=== PATIENT | male | born 1935 | race Caucasian/White ===

== ENCOUNTER 2016-11-21 12:35 | Emergency (ER) | payer MEDICARE, OTHER ==
[~2016-11-21] VITALS: Ht 180.3 cm; Wt 78.0 kg
[~2016-11-21 12:35] MED LIST: AGGR20025 PO; AMBI10TA PO; AMLO10TA2 PO; CYMB60CA PO; NEXI20CA PO; PRED5TAB PO; RAPA8CAP PO; ZETI10TA5 PO
[2016-11-21] MEDS ORDERED: DILTIAZEM HCL 25 MG/5 ML VIAL ONE (12:48)
[2016-11-21] MEDS ORDERED: SODIUM CHLORIDE 0.9% FLUSH 10 ML FLUSH IVF PRN (13:00)
[2016-11-21] MEDS ORDERED: DILTIAZEM HCL 25 MG/5 ML VIAL IV ONE (13:00)
--- NOTE | 2016-11-21 13:01 | PD ---
HPI Chief Complaint: chest pain Time Seen by Provider: 12:51 Travel History International Travel<30 days: No Contact w/Intl Traveler<30days: No History of Present Illness HPI This is an 80-year-old male who presents to the emergency department with 45 minutes of left-sided chest discomfort described as pressure, nonradiating, associated with shortness of breath, moderate severity. He says he's never had chest pain like this before. The patient just yesterday had a temporal artery biopsy and he saw Dr. Torres his ict support engineer prior to this and got a clean checkup. He says he's had a stress test in the past but none in several years. He says he may have been told he has a history of atrial fibrillation but he is not sure. He's had TIAs in the past and he takes Aggrenox. He's never had a heart attack before. 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) Blood Disorders: No Cancer: Yes (bladder) Cardiac Catheterization: Yes Cardiovascular Problems: No High Cholesterol: Yes Chemotherapy: Yes (07/23/16) Chest Pain: No Cerebrovascular Accident: Yes (TIA 2007) Diabetes: No Diminished Hearing: No Endocrine: No Gastrointestinal Disorders: Yes GERD: Yes Glaucoma: No Genitourinary: No Headaches: Yes Hepatitis: No Hiatal Hernia: No Hypertension: No Immune Disorder: Yes Implanted Vascular Access Dvce: Yes Musculoskeletal: Yes Neurologic: Yes Psychiatric: No Reproductive: No Respiratory: Yes Sleep Apnea: Yes Thyroid Disease: No Ulcer: Yes Past Surgical History Abdominal Surgery: No AICD: No Cardiac Surgery: No Ear Surgery: No Endocrine Surgery: No Eye Surgery: Yes (bilat. cataract) Genitourinary Surgery: No Gynecologic Surgery: No Joint Replacement: No Neurologic Surgery: Yes Oral Surgery: No Pacemaker: No Thoracic Surgery: No Other Surgery: Yes (BACK SURGERIES) Social History Alcohol Use: No Tobacco Use: No Substance Use: No Allergies-Medications (Allergen,Severity, Reaction): Coded Allergies: No Known Allergies (Verified , 11/16/10) Reported Meds & Prescriptions Reported Meds & Active Scripts Active Reported Glimepiride 1 Mg Tab 1 Mg PO DAILY Take with breakfast or first main meal Ambien (Zolpidem Tartrate) 10 Mg Tab 10 Mg PO HS PRN Rapaflo (Silodosin) 8 Mg Cap 8 Mg PO DAILY Prednisone 5 Mg Tab 5 Mg PO BID Nexium (Esomeprazole DR) 20 Mg Capdr 20 Mg PO DAILY Zetia (Ezetimibe) 10 Mg Tab 10 Mg PO DAILY Aggrenox (Dipyridamole/Aspirin) 200-25 Mg Cap 1 Cap PO BID Review of Systems Except as stated in HPI: all other systems reviewed are Neg Physical Exam Narrative GENERAL:Well appearing, no acute distress SKIN: Bandage on the left forehead. HEAD: Atraumatic. Normocephalic. EYES: Pupils equal and round. No injection or drainage. ENT: Moist mucous membranes NECK: Trachea midline. CARDIOVASCULAR: Tachycardic, rhythm is irregularly irregular. No murmur appreciated. RESPIRATORY: Clear to auscultation. Breath sounds equal bilaterally. GASTROINTESTINAL: Abdomen soft, non-tender, nondistended. MUSCULOSKELETAL: No obvious deformities. NEUROLOGICAL: Awake and alert. No obvious cranial nerve deficits. Moving all extremities. PSYCHIATRIC: Appropriate mood and affect; insight and judgment normal. Data Data Last Documented VS Vital Signs Date Time Temp Pulse Resp B/P Pulse Ox O2 Delivery O2 Flow Rate FiO2 11/21/16 16:29 60 20 144/67 Nasal Cannula 2 11/21/16 13:32 95 Orders Diltiazem Inj (Cardizem Inj) (11/21/16 12:48) Electrocardiogram (11/21/16 12:51) B-Type Natriuretic Peptide (11/21/16 12:51) Complete Blood Count With Diff (11/21/16 12:51) Comprehensive Metabolic Panel (11/21/16 12:51) Magnesium (Mg) (11/21/16 12:51) Prothrombin Time / Inr (Pt) (11/21/16 12:51) Act Partial Throm Time (Ptt) (11/21/16 12:51) Troponin I (11/21/16 12:51) Chest, Single Ap (11/21/16 12:51) Ecg Monitoring (11/21/16 12:51) Bilateral Bp Monitoring (11/21/16 12:51) Iv Access Insert/Monitor (11/21/16 12:51) Oximetry (11/21/16 12:51) Oxygen Administration (11/21/16 12:51) Sodium Chloride 0.9% Flush (Ns Flush) (11/21/16 13:00) Diltiazem Inj (Cardizem Inj) (11/21/16 13:00) Sodium Chlor 0.9% 1000 Ml Inj (Ns 1000 M (11/21/16 14:45) Diltiazem Cd (Cardizem Cd) (11/21/16 15:00) Troponin I (11/21/16 16:26) Labs Laboratory Tests Test 11/21/16 11/21/16 13:35 16:20 White Blood Count 17.8 TH/MM3 Red Blood Count 4.64 MIL/MM3 Hemoglobin 14.7 GM/DL Hematocrit 44.6 % Mean Corpuscular Volume 96.2 FL Mean Corpuscular Hemoglobin 31.6 PG Mean Corpuscular Hemoglobin 32.9 % Concent Red Cell Distribution Width 14.2 % Platelet Count 169 TH/MM3 Mean Platelet Volume 9.1 FL Neutrophils (%) (Auto) 94.7 % Lymphocytes (%) (Auto) 2.3 % Monocytes (%) (Auto) 2.5 % Eosinophils (%) (Auto) 0.0 % Basophils (%) (Auto) 0.5 % Neutrophils # (Auto) 16.8 TH/MM3 Lymphocytes # (Auto) 0.4 TH/MM3 Monocytes # (Auto) 0.5 TH/MM3 Eosinophils # (Auto) 0.0 TH/MM3 Basophils # (Auto) 0.1 TH/MM3 CBC Comment DIFF FINAL Differential Comment Prothrombin Time 10.4 SEC Prothromb Time International 0.9 RATIO Ratio Activated Partial 24.3 SEC Thromboplast Time Sodium Level 138 MEQ/L Potassium Level 4.6 MEQ/L Chloride Level 105 MEQ/L Carbon Dioxide Level 21.9 MEQ/L Anion Gap 11 MEQ/L Blood Urea Nitrogen 30 MG/DL Creatinine 1.55 MG/DL Estimat Glomerular Filtration 43 ML/MIN Rate Random Glucose 256 MG/DL Calcium Level 8.7 MG/DL Magnesium Level 2.3 MG/DL Total Bilirubin 1.0 MG/DL Aspartate Amino Transf 48 U/L (AST/SGOT) Alanine Aminotransferase 58 U/L (ALT/SGPT) Alkaline Phosphatase 95 U/L Troponin I LESS THAN 0.02 LESS THAN 0.02 NG/ML NG/ML B-Type Natriuretic Peptide 90 PG/ML Total Protein 7.2 GM/DL Albumin 3.6 GM/DL MDM Medical Decision Making Medical Screen Exam Complete: Yes Emergency Medical Condition: Yes Interpretation(s) Tachycardic Leukocytosis with left shift Renal insufficiency slightly worse than prior Troponin is normal 2 BNP is 90 Coags are normal Chest x-rays reassuring. EKG: Atrial fibrillation with rapid ventricular response. Repeat EKG: Normal sinus rhythm with frequent PVCs and intermittent bigeminy Differential Diagnosis Atrial fibrillation, SVT, myocardial infarction, electrolyte abnormality, sepsis Narrative Course This is a 81-year-old male who presents to the emergency department with onset of chest pain that started this afternoon about an hour prior to arrival in the emergency department with some shortness of breath. On arrival he was placed on a monitor and found to be tachycardic with a normal blood pressure. I assessed him immediately when he got in the room. EKG demonstrated atrial fibrillation. The patient was given a 15 mg IV dose of diltiazem and subsequently converted to sinus rhythm. Labs were all reassuring. He does have a leukocytosis which I suspect is in the setting of being on prednisone due to concern for temporal arteritis. He otherwise has no infectious symptoms. Chest x-ray demonstrates no pneumonia. I spoke to Dr. Scottie Torres who is the patient's ict support engineer. The patient has no history of atrial fibrillation. Dr. Torres recommended we initiate diltiazem 240 mg and he will follow-up with the patient early next week in clinic. We discussed the possibility of acute coronary syndrome. We both think it's unlikely given the patient's symptoms immediately resolved following resolution of his rapid heart rate. Troponin was repeated at a 3 hour interval and was reassuring. I think the patient is safe for outpatient evaluation. Patient was advised if he has recurrence of symptoms to return to the emergency department. Diagnosis Primary Impression: Atrial fibrillation Qualified Code: I48.0 - Paroxysmal atrial fibrillation Patient Instructions: General Instructions Additional Instructions: If you develop severe chest pain, shortness of breath, sweating, lightheadedness , dizziness or difficulty breathing return to the emergency department immediately. Make an appointment with Dr. Torres's office for early next week. Med/Other Pt SpecificInfo: Prescription(s) given Scripts Diltiazem ER 24 HR 240 Mg [id number] Mg PO DAILY #30 TAB Ref 0 Prov:Nikki Leigh MD 11/21/16 Disposition: 01 DISCHARGE HOME Condition: Stable Nikki Leigh MD Nov 21, 2016 13:01
[2016-11-21 13:20] VITALS: BP 141/60; PULSE 150; RESP 20; O2SAT 92
[2016-11-21] MEDS ORDERED: GLIM1TAB PO (13:29)
[2016-11-21 13:32] VITALS: BP 129/59; PULSE 58; RESP 20; O2SAT 95
[2016-11-21 13:43] LABS: AUTOMATED NEUTROPHIL # 16.8 TH/MM3 (1.8-7.7); BASOPHIL # 0.1 TH/MM3 (0-0.2); BASOPHIL % 0.5 % (0.0-2.0); HEMATOCRIT 44.6 % (39.0-51.0); HEMO FLAGS DIFF FINAL; LYMPH % 2.3 % (9.0-44.0); LYMPHOCYTE # 0.4 TH/MM3 (1.0-4.8); MEAN CELL VOLUME 96.2 FL (80.0-100.0); MEAN CORPUSCULAR HEMOGLOBIN 31.6 PG (27.0-34.0); MEAN CORPUSCULAR HGB CONC 32.9 % (32.0-36.0); MONO % 2.5 % (0.0-8.0); NEUT % 94.7 % (16.0-70.0); PLATELET COUNT 169 TH/MM3 (150-450); RED BLOOD COUNT 4.64 MIL/MM3 (4.50-5.90); RED CELL DISTRIBUTION WIDTH 14.2 % (11.6-17.2); WHITE BLOOD COUNT 17.8 TH/MM3 (4.0-11.0)
[2016-11-21 13:55] LABS: APTT (PATIENT) 24.3 SEC (24.3-30.1); INTERNATIONAL NORMALIZED RATIO 0.9 RATIO; PROTHROMBIN TIME - PATIENT 10.4 SEC (9.8-11.6)
--- NOTE | 2016-11-21 14:03 | RADRPT ---
EXAM DATE/TIME: 11/21/2016 13:09 [facility] COMPARISON: No previous studies available for comparison. INDICATIONS : Patient has been short of breath and had chest pain since this morning. MEDICAL HISTORY : None. SURGICAL HISTORY : None. ENCOUNTER: Initial ACUITY: 1 day PAIN SCORE: 8/10 LOCATION: Bilateral chest FINDINGS: The heart is normal in size. The mediastinal contours are within normal limits. There are chronic int erstitial changes within the pulmonary parenchyma. The lungs are otherwise clear. CONCLUSION: 1. Chronic interstitial changes. No acute abnormality. Jossue Kennedy MD on November 21, 2016 at 13:59 Board Certified Radiologist. This report was verified electronically.
[2016-11-21 14:14] LABS: ALKALINE PHOSPHATASE 95 U/L (45-117); ALT (GPT) 58 U/L (12-78); ANION GAP 11 MEQ/L (5-15); AST (GOT) 48 U/L (15-37); BICARBONATE 21.9 MEQ/L (21.0-32.0); BLOOD UREA NITROGEN 30 MG/DL (7-18); CHLORIDE 105 MEQ/L (98-107); GLOMERULAR FILTRATION RATE 43 ML/MIN (>89); MAGNESIUM 2.3 MG/DL (1.5-2.5); SODIUM (NA) 138 MEQ/L (136-145)
[2016-11-21 14:16] LABS: POTASSIUM 4.6 MEQ/L (3.5-5.1)
[2016-11-21] MEDS ORDERED: SODIUM CHLOR 0.9% 1000 ML INJ 1,000 ML IV SCH (14:45)
[2016-11-21] MEDS ORDERED: DILTIAZEM-CD 240 MG CAP ER PO ONE (15:00)
[2016-11-21 16:29] VITALS: BP 144/67; PULSE 60; RESP 20
[2016-11-21 17:25] VITALS: TEMP 97.9
[2016-11-21] MEDS ORDERED: DILT1TAB4 PO (17:25)
--- NOTE | 2016-11-23 11:24 | EKG ---
Date Performed: 11/21/2016 Time Performed: 12:44:47 PTAGE: 81 years EKG: ATRIAL FIBRILLATION WITH RAPID VENTRICULAR RESPONSE NONSPECIFIC ST & T-WAVE ABNORMALITY ABN ORMAL ECG INTERPRETATION BASED ON A DEFAULT AGE OF 40 YEARS PREVIOUS TRACING : 11/16/2010 11.47 DOCTOR: George Chacko Interpretating Date/Time 11/23/2016 11:21:01
== END 2016-11-21 18:22 | disposition home or self-care (01) ==
LOC: NEPB 12:35
DX: I48.91 Unspecified atrial fibrillation (principal)
CPT/HCPCS: 71010; 80053; 83735; 83880; 84484; 85025; 85610; 85730; 93005; 96361; 96374; 99284; J7030

== ENCOUNTER 2016-11-27 20:05 | Inpatient (IN) | payer MEDICARE, OTHER ==
[~2016-11-27] VITALS: Ht 180.3 cm; Wt 76.1 kg
[~2016-11-27 20:05] MED LIST changes: -AMLO10TA2 PO; -CYMB60CA PO; +DILT1TAB4 PO; +GLIM1TAB PO
[2016-11-27 20:07] VITALS: BP 184/76; PULSE 62; RESP 16; TEMP 98; O2SAT 98
[2016-11-27 20:21] VITALS: BP 189/75; PULSE 58; RESP 21; O2SAT 100
[2016-11-27] MEDS ORDERED: PRED10 PO (20:36)
[2016-11-27] MEDS ORDERED: NEXI40CA PO (20:36)
[2016-11-27] MEDS ORDERED: SODIUM CHLORIDE 0.9% FLUSH 10 ML FLUSH IVF PRN (20:45)
--- NOTE | 2016-11-27 20:45 | PD ---
HPI Chief Complaint: Cardiac Complaint Time Seen by Provider: 20:23 Travel History International Travel<30 days: No Contact w/Intl Traveler<30days: No Traveled to known affect area: No History of Present Illness HPI 81-year-old male arrives to the ER at the behest of Dr. Torres. The patient states he has "heart fibrillation." He also states he has been short of breath and dizzy. Shortness of breath was first noticed about 5 days ago or so. It's worse with exertion and over the past day or so he is short of breath at rest. He has no chest pain in the ER and has had none recently. The patient was seen here about a week ago after arriving to the ER in atrial fibrillation with RVR. He received diltiazem and the heart rate normalized and he was sent home on oral diltiazem after a EP spoke with Dr Torres, pt's examining chair assembler. Since then he was placed on a Holter monitor by Dr. Torres which showed arrhythmia and prompted ER evaluation. Patient notes he has some sinus trouble lately, not rhinorrhea, not coughing rather "stuffed up." Finally the patient states he has had cephalgia for years and a biopsy was performed last week and the results are pending, evidently an investigation for giant cell arteritis. 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) Blood Disorders: No Cancer: Yes (bladder) Cardiac Catheterization: Yes Cardiovascular Problems: Yes (atrial fib) High Cholesterol: Yes Chemotherapy: Yes (07/23/16) Chest Pain: No Cerebrovascular Accident: Yes (TIA 2007) Diminished Hearing: No Endocrine: No Gastrointestinal Disorders: Yes GERD: Yes Glaucoma: No Genitourinary: No Headaches: Yes Hepatitis: No Hiatal Hernia: No Hypertension: No Immune Disorder: Yes Implanted Vascular Access Dvce: Yes Medical other: Yes (HX OF TIAS X2, HYPERCHOLESTER.) Musculoskeletal: Yes Neurologic: Yes Psychiatric: No Reproductive: No Respiratory: Yes (cpap) Sleep Apnea: Yes Thyroid Disease: No Ulcer: Yes Past Surgical History Abdominal Surgery: No AICD: No Cardiac Surgery: No Ear Surgery: No Endocrine Surgery: No Eye Surgery: Yes (bilat. cataract) Genitourinary Surgery: No Gynecologic Surgery: No Joint Replacement: No Neurologic Surgery: Yes (BILAT. TEMPORAL ARTERY SURGERY 3/22 @) Oral Surgery: No Pacemaker: No Thoracic Surgery: No Other Surgery: Yes (BACK SURGERIES) Social History Alcohol Use: Yes (rarely) Tobacco Use: No Substance Use: No Allergies-Medications (Allergen,Severity, Reaction): Coded Allergies: Morphine (Verified Allergy, Unknown, Hallucinations, 11/27/16) Reported Meds & Prescriptions Reported Meds & Active Scripts Active Diltiazem ER 24 HR 240 Mg Clark 240 Mg PO DAILY Reported Nexium (Esomeprazole DR) 40 Mg Capdr 40 Mg PO DAILY Prednisone 10 Mg Tab 30 Mg PO DAILY Glimepiride 1 Mg Tab 1 Mg PO DAILY Take with breakfast or first main meal Ambien (Zolpidem Tartrate) 10 Mg Tab 10 Mg PO HS PRN Rapaflo (Silodosin) 8 Mg Cap 8 Mg PO DAILY Zetia (Ezetimibe) 10 Mg Tab 10 Mg PO DAILY Aggrenox (Dipyridamole/Aspirin) 200-25 Mg Cap 1 Cap PO BID Review of Systems Except as stated in HPI: all other systems reviewed are Neg General / Constitutional: No: Fever Cardiovascular: Positive: Dyspnea on exertion, No: Chest Pain or Discomfort, Syncope Physical Exam Narrative GENERAL: 81 M, WNWD, pleasant, speaking full sentences SKIN: Warm and dry. HEAD: Atraumatic. Normocephalic. EYES: Pupils equal and round. No scleral icterus. No injection or drainage. ENT: No nasal bleeding or discharge. Mucous membranes pink and moist. NECK: Trachea midline. No JVD. CARDIOVASCULAR: Rhythm is regular. 2+ radial artery pulses. RESPIRATORY: No accessory muscle use. Clear to auscultation. Breath sounds equal bilaterally. GASTROINTESTINAL: Abdomen soft, non-tender, nondistended. Hepatic and splenic margins not palpable. MUSCULOSKELETAL: Extremities without clubbing, cyanosis, or edema. No obvious deformities. NEUROLOGICAL: Awake and alert. No obvious cranial nerve deficits. Motor grossly within normal limits. Five out of 5 muscle strength in the arms and legs. Normal speech. PSYCHIATRIC: Appropriate mood and affect; insight and judgment normal. Data Data Last Documented VS Vital Signs Date Time Temp Pulse Resp B/P Pulse Ox O2 Delivery O2 Flow Rate FiO2 11/27/16 22:20 54 24 162/73 97 Room Air 11/27/16 20:07 98.0 VS reviewed Orders Electrocardiogram (11/27/16 20:37) Basic Metabolic Panel (Bmp) (11/27/16 20:37) Ckmb (Isoenzyme) Profile (11/27/16 20:37) Complete Blood Count With Diff (11/27/16 20:37) Magnesium (Mg) (11/27/16 20:37) Prothrombin Time / Inr (Pt) (11/27/16 20:37) Act Partial Throm Time (Ptt) (11/27/16 20:37) Troponin I (11/27/16 20:37) Ecg Monitoring (11/27/16 20:37) Iv Access Insert/Monitor (11/27/16 20:37) Oximetry (11/27/16 20:37) Oxygen Administration (11/27/16 20:37) Sodium Chloride 0.9% Flush (Ns Flush) (11/27/16 20:45) B-Type Natriuretic Peptide (11/27/16 20:37) Chest, Single Ap (11/27/16 ) Heparin Infusion ADDI.Q1H (11/27/16 20:49) Heparin Inj (Heparin Inj) (11/28/16 03:00) Heparin Inj (Heparin Inj) (11/28/16 03:00) Heparin-D5w Inj (Heparin-D5w Inj) (11/27/16 21:00) Cbc No Diff, Includes Plts (11/30/16 06:00) Act Partial Throm Time (Ptt) (11/28/16 03:49) Occult Blood (Hemoccult) Stool (11/27/16 20:49) Consult Cardiology (11/27/16 ) CKMB (11/27/16 20:40) CKMB% (11/27/16 20:40) (Hub Use Only)Inp Phy Cons/Ref (11/27/16 ) Lorazepam Inj (Ativan Inj) (11/27/16 22:00) Admit Order (Ed Use Only) (11/27/16 22:45) Labs Laboratory Tests Test 11/27/16 20:40 White Blood Count 15.5 TH/MM3 Red Blood Count 4.47 MIL/MM3 Hemoglobin 14.3 GM/DL Hematocrit 42.7 % Mean Corpuscular Volume 95.4 FL Mean Corpuscular Hemoglobin 31.9 PG Mean Corpuscular Hemoglobin 33.4 % Concent Red Cell Distribution Width 13.9 % Platelet Count 173 TH/MM3 Mean Platelet Volume 9.9 FL Neutrophils (%) (Auto) 90.8 % Lymphocytes (%) (Auto) 4.5 % Monocytes (%) (Auto) 4.5 % Eosinophils (%) (Auto) 0.1 % Basophils (%) (Auto) 0.1 % Neutrophils # (Auto) 14.0 TH/MM3 Lymphocytes # (Auto) 0.7 TH/MM3 Monocytes # (Auto) 0.7 TH/MM3 Eosinophils # (Auto) 0.0 TH/MM3 Basophils # (Auto) 0.0 TH/MM3 CBC Comment AUTO DIFF Differential Total Cells 100 Counted Neutrophils % (Manual) 84 % Band Neutrophils % 5 % Lymphocytes % 5 % Monocytes % 5 % Neutrophils # (Manual) 14.0 TH/MM3 Myelocytes 1 % Differential Comment FINAL DIFF MANUAL Platelet Estimate NORMAL Platelet Morphology Comment NORMAL Red Cell Morphology Comment NORMAL Prothrombin Time 10.0 SEC Prothromb Time International 0.9 RATIO Ratio Activated Partial 22.9 SEC Thromboplast Time Sodium Level 136 MEQ/L Potassium Level 5.4 MEQ/L Chloride Level 104 MEQ/L Carbon Dioxide Level 22.1 MEQ/L Anion Gap 10 MEQ/L Blood Urea Nitrogen 31 MG/DL Creatinine 1.52 MG/DL Estimat Glomerular Filtration 44 ML/MIN Rate Random Glucose 347 MG/DL Calcium Level 9.1 MG/DL Magnesium Level 2.2 MG/DL Total Creatine Kinase 136 U/L Creatine Kinase MB 3.2 NG/ML Troponin I LESS THAN 0.02 NG/ML B-Type Natriuretic Peptide 50 PG/ML MDM Medical Decision Making Medical Screen Exam Complete: Yes Emergency Medical Condition: Yes Medical Record Reviewed: Yes Differential Diagnosis NSTEMI, unstable angina, coronary vasospasm, PE, PTX, aortic dissection, pericarditis, myocarditis, endocarditis, PNA, esophageal disease, aneurysm, musculoskeletal etiologies, anxiety, cocaine/sympathomimetic abuse Narrative Course This case was discussed with Dr. Torres who reports the Holter monitor report revealed episodes of A. fib with RVR which were unnoticed by the patient. One episode was followed by a 6 second pause. In this scenario the patient is to be admitted for ablation to be performed by Dr. Chacko with a diagnosis of tachycardia-bradycardia syndrome. IV Heparin gtt started. Case d/w Derek Plasencia for [facility], admission to Dr Hernandez. CBC & BMP Diagram 11/27/16 20:40 Note is made of the leukocytosis with band neutrophils in the blood which is considered nonspecific at this time. BNP 50 INR 0.9 Last 24 hours Impressions Chest X-Ray 11/27/16 0000 Signed Impressions: Service Date/Time: Sunday, November 27, 2016 20:49 - CONCLUSION: 1. No acute cardiopulmonary disease. 2. No significant change compared to the previous examination. 3. Degenerative changes throughout the thoracic spine. Nilo Neely MD EKG reveals a sinus rhythm with a rate of about 61 PVC noted Diagnosis Primary Impression: Tachy-gary syndrome Admitting Information Admitting Physician Requests: Admit Jossue Alberto MD Nov 27, 2016 20:45
[2016-11-27 20:53] VITALS: BP 153/68; PULSE 53; RESP 21; O2SAT 96
[2016-11-27 21:04] LABS: BASOPHIL % 0.1 % (0.0-2.0); EOSINOPHIL % 0.1 % (0.0-4.0); HEMATOCRIT 42.7 % (39.0-51.0); LYMPH % 4.5 % (9.0-44.0); LYMPHOCYTE # 0.7 TH/MM3 (1.0-4.8); MEAN CELL VOLUME 95.4 FL (80.0-100.0); MEAN CORPUSCULAR HEMOGLOBIN 31.9 PG (27.0-34.0); MEAN CORPUSCULAR HGB CONC 33.4 % (32.0-36.0); MONO % 4.5 % (0.0-8.0); NEUT % 90.8 % (16.0-70.0); PLATELET COUNT 173 TH/MM3 (150-450); RED BLOOD COUNT 4.47 MIL/MM3 (4.50-5.90); RED CELL DISTRIBUTION WIDTH 13.9 % (11.6-17.2); WHITE BLOOD COUNT 15.5 TH/MM3 (4.0-11.0)
[2016-11-27 21:12] LABS: APTT (PATIENT) 22.9 SEC (24.3-30.1); INTERNATIONAL NORMALIZED RATIO 0.9 RATIO
[2016-11-27 21:15] LABS: HEMO FLAGS AUTO DIFF
[2016-11-27 21:29] LABS: ANION GAP 10 MEQ/L (5-15); BICARBONATE 22.1 MEQ/L (21.0-32.0); BLOOD UREA NITROGEN 31 MG/DL (7-18); CHLORIDE 104 MEQ/L (98-107); CREATINE KINASE 136 U/L (39-308); GLOMERULAR FILTRATION RATE 44 ML/MIN (>89); MAGNESIUM 2.2 MG/DL (1.5-2.5); POTASSIUM 5.4 MEQ/L (3.5-5.1); SODIUM (NA) 136 MEQ/L (136-145)
--- NOTE | 2016-11-27 21:37 | RADRPT ---
EXAM DATE/TIME: 11/27/2016 20:49 [facility] COMPARISON: CHEST SINGLE AP, November 21, 2016, 13:09. INDICATIONS : Chest pain and shortness of breath. MEDICAL HISTORY : Chronic obstructive pulmonary disease. SURGICAL HISTORY : None. ENCOUNTER: Subsequent ACUITY: 2 days PAIN SCORE: 8/10 LOCATION: Chest FINDINGS: There is no significant change compared to 11/21/2016. There is no acute focal pulmonary infiltrate o r pulmonary vascular congestion. The heart and mediastinal structures are stable. CONCLUSION: 1. No acute cardiopulmonary disease. 2. No significant change compared to the previous examination. 3. Degenerative changes throughout the thoracic spine. Nilo Neely MD on November 27, 2016 at 21:32 Board Certified Radiologist. This report was verified electronically.
[2016-11-27 21:42] LABS: CKMB 3.2 NG/ML (0.5-3.6)
[2016-11-27] MEDS: HEPARIN-D5W INJ 250 ML IV SCH (21:57)
[2016-11-27] MEDS ORDERED: LORazepam 2 MG/ML VIAL IV PUSH ONE (22:00)
[2016-11-27 22:05] LABS: BANDS 5 % (0-6); MYELOCYTES 1 % (0-0); POLYS (SEG NEUTROPHILS) 84 % (16-70); WBC DIFF SAMPLE 100
[2016-11-27 22:06] LABS: PLATELET ESTIMATE SMEAR NORMAL (NORMAL); PLATELET MORPHOLOGY NORMAL (NORMAL); SCAN/DIFF FINAL DIFF MANUAL
[2016-11-27 22:20] VITALS: BP 162/73; PULSE 54; RESP 24; O2SAT 97
[2016-11-27] MEDS ORDERED: DEXTROSE 50% IN WATER 50 ML VIAL(D50) IV PUSH PRN (23:30)
[2016-11-27] MEDS ORDERED: GLUCAGON 1 MG/ML VIAL OTHER PRN (23:30)
[2016-11-27] MEDS ORDERED: ACETAMINOPHEN 325 MG TAB PO PRN (23:30)
[2016-11-27] MEDS ORDERED: NALOXONE HCL 0.4 MG/ML AMP IV PRN (23:30)
[2016-11-27] MEDS ORDERED: SODIUM CHLORIDE 0.9% FLUSH 10 ML FLUSH IV FLUSH PRN (23:30)
[2016-11-27] MEDS ORDERED: SENNOSIDES 8.6 MG TAB PO PRN (23:30)
[2016-11-27] MEDS ORDERED: ONDANSETRON HCL 4 MG/2 ML VIAL IVP PRN (23:30)
[2016-11-27] MEDS ORDERED: BISACODYL 10 MG SUPP RECTAL PRN (23:30)
[2016-11-28] VITALS (18 sets, daily range): BP systolic 116–186; BP diastolic 53–99; PULSE 52–166; RESP 12–18; TEMP 97.8–98.1; O2SAT 94–98
[2016-11-28] MEDS: SODIUM CHLOR 0.9% 1000 ML INJ 1,000 ML IV SCH ×3 (00:34→20:19)
[2016-11-28] MEDS ORDERED: ZOLPIDEM TARTRATE 10 MG TAB PO PRN ×2 (01:00)
[2016-11-28] MEDS ORDERED: HEPARIN SODIUM - IV 10,000 UNITS/10 ML VIAL IV PRN ×2 (03:00)
[2016-11-28 03:07] LABS: AUTOMATED NEUTROPHIL # 11.4 TH/MM3 (1.8-7.7); BASOPHIL # 0.2 TH/MM3 (0-0.2); BASOPHIL % 1.3 % (0.0-2.0); EOSINOPHIL # 0.1 TH/MM3 (0-0.4); EOSINOPHIL % 0.9 % (0.0-4.0); HEMO FLAGS DIFF FINAL; LYMPH % 11.7 % (9.0-44.0); LYMPHOCYTE # 1.7 TH/MM3 (1.0-4.8); MEAN CELL VOLUME 95.6 FL (80.0-100.0); MEAN CORPUSCULAR HGB CONC 32.4 % (32.0-36.0); MONO % 6.2 % (0.0-8.0); NEUT % 79.9 % (16.0-70.0); PLATELET COUNT 142 TH/MM3 (150-450); RED BLOOD COUNT 4.19 MIL/MM3 (4.50-5.90); WHITE BLOOD COUNT 14.2 TH/MM3 (4.0-11.0)
[2016-11-28 03:15] LABS: APTT (PATIENT) 43.6 SEC (24.3-30.1)
[2016-11-28 03:40] LABS: BICARBONATE 24.8 MEQ/L (21.0-32.0); POTASSIUM 3.9 MEQ/L (3.5-5.1)
[2016-11-28] MEDS: INSULIN ASPART SUPPLEMENTAL SCALE SQ SCH ×4 (07:14→20:19)
[2016-11-28] MEDS: SODIUM CHLORIDE 0.9% FLUSH 10 ML FLUSH IV FLUSH SCH ×2 (07:14→20:19)
[2016-11-28] MEDS ORDERED: FAMOTIDINE 20 MG TAB PO ONE (10:00)
--- NOTE | 2016-11-28 10:37 | MH ---
cc: FRANCINE HERNANDEZ MD DATE OF ADMISSION: 11/27/2016 DATE OF : 1935 CHIEF COMPLAINT Irregular heart rhythm and shortness of breath. Travel in the last 30 days: None. 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 The patient states that Dr. Torres has been following him for atrial fibrillation and irregular heart rhythm. The patient does note symptoms of shortness of breath and dizziness off and on when he was at home and before going to see Dr. Torres and his PCP. Approximately a week ago the patient was at a green party and dancing with his when he noted an extreme sensation of dizziness. The patient was noted to have a Holter monitor on during that time. The patient was notified per Dr. Torres that his heart was having extreme pauses which was causing his symptoms of dizziness. He was then requested to come into the emergency room for further evaluation. According to the record, the patient has had cephalgia for years and had a biopsy done this past week with results pending. According to the record the patient is being evaluated for giant cell arteritis. The patient also has been recently treated for cancer and was just released from his medical treatment regime. The patient does have a significant history of TIAs with some right-sided weakness and right eye drooping. He is also a diabetic and on oral hypoglycemics. PAST MEDICAL HISTORY 1. Polymyalgia. 2. Arthritis with autoimmune disease. 3. Recent bladder cancer. 4. Recent atrial fibrillation. 5. Hyperlipidemia. 6. Diabetes with oral hypoglycemics. 7. TIAs. 8. Ogwp-fi-gibdbnw. 9. GERD. 10. Headaches. 11. Obstructive sleep apnea, the patient uses CPAP at night. 12. History of ulcers. PAST SURGICAL HISTORY 1. Bilateral cataracts. 2. Welding accident approximately 50 years ago which caused the right eye to droop from an injury. 3. Multiple back surgeries. ALLERGIES MORPHINE. MEDICATIONS Reported medications include: 1. Nexium. 2. Prednisone. 3. Glimepiride. 4. Ambien. 5. Rapaflo. 6. Zetia. 7. Aggrenox. SOCIAL HISTORY The patient is , currently lives with his . He is retired. No tobacco, rare alcohol once a year usage, no illicit drugs. FAMILY HISTORY Heart disease and cancer. REVIEW OF SYSTEMS A 12-point review was obtained, positives noted are shortness of breath at rest and with exertion, hard of hearing, irregular heart rhythm, mild dizziness, arthritis, chest pain x1 back several week ago when heart rate and rhythm was irregular, headaches. Other systems negative or unremarkable. PHYSICAL EXAMINATION VITAL SIGNS: Temperature 98, pulse 58, respirations 18, blood pressure labile between 153/68 and 186/86. 02 sat 97, currently on room air. Used CPAP machine during the hours of sleep. GENERAL: Well-nourished white male, looks younger than his stated age, resting in the bed, alert and oriented and a fairly good historian. HEENT: Atraumatic, normocephalic. Right eye droop, chronic. PERRLA. Tongue is midline. Mucous membranes are pink. NECK: Supple. CARDIOVASCULAR: S1, S2, probable soft systolic murmur at the left sternal border. No edema. Pulses are intact. RESPIRATORY: Essentially clear anteriorly and posteriorly with no wheezes, rales or rhonchi. GI: Abdomen is round, soft, nontender, nondistended. Active bowel sounds. MUSCULOSKELETAL: Moves his extremities with purpose. No edema. NEUROLOGIC: He is alert, oriented, awake, able to answer simple questions. Speech is clear and normal. PSYCHIATRIC: Appropriate mood and affect. Insight and judgment is normal. DIAGNOSTIC DATA WBC count 14.2, RBCs 4.19, hemoglobin 13, hematocrit 40, platelet count was 173 on admission, now 142. Neutrophil auto count 79.9. PT/INR 0.9. Chemistry sodium 140, potassium 3.9, chloride 107, carbon dioxide 24.8, amnion gap 8, BUN 27, creatinine 0.12, GFR 63, random glucose 204. Troponin x 2 is less than 0.02. BNP is 50. IMAGING STUDIES Shows the chest x-ray to be no acute cardiopulmonary disease, degenerative changes of the thoracic spine noted. ASSESSMENT AND PLAN 1. Syncope, dizziness without loss of consciousness. 2. Recent history of atrial fibrillation, irregular rhythm, labile between a slow ventricular response and a tachyarrhythmia. 3. Dyspnea. 4. COPD/obstructive sleep apnea. 5. Degenerative disc disease. 6. Diabetes mellitus type II, takes oral hypoglycemics. 7. Hyperglycemia. 8. History of right-sided weakness with TIAs. 9. History of recent bladder cancer. 10. Leukocytosis. 11. Acute kidney injury with dehydration. 12. Hard of hearing. 13.History of dysuria and frequency. Our plan is to admit to inpatient status. Will monitor his vital signs q. 4 and keep him on bedrest for now. ECG monitoring with gentle hydration. Medications have been reconciled. Will monitor his Accu-Cheks a.c. and h.s. per sliding scale. Consult cardiology for his expert opinion. Currently the patient is in a sinus bradycardic rhythm in the 50s. He denies any shortness of breath or pain. We will follow. Further testing per cardiology. Pain management as warranted. DVT prophylaxis with heparin drip. Bowel regime. Will give him Pepcid p.o. for PUD prophylaxis. Continue with telemetry monitoring. The patient is full code, full aggressive care and we will continue to follow his needs. Dictated by: Snehal Sanz, Nurse Practitioner Francine Hernandez MD JP/TLL /9:07 AM /9:46 AM PT SEEN AND EXAMINED IN DETAIL ABOVE FACE TO FACE TIME SPENT WIWTH PT CHART WAS REVIWED RERE RN RERE MOOREP ABOUT PLAN OF CARE RERE PT SEE ORDERS MTDD
[2016-11-28] MEDS: predniSONE 10 MG TAB PO SCH (11:01)
[2016-11-28] MEDS: PANTOPRAZOLE SOD 40 MG DELAYED RELEASE TAB PO SCH (11:02)
[2016-11-28] MEDS: EZETIMIBE 10 MG TAB PO SCH (11:02)
[2016-11-28] MEDS: DIPYRIDAMOLE/ASPIRIN 200 MG/25 MG CAP PO SCH ×2 (11:22→20:20)
[2016-11-28] MEDS: DILTIAZEM HCL 25 MG/5 ML VIAL ONE ×2 (14:13→14:18)
[2016-11-28] MEDS ORDERED: DILTIAZEM HCL 25 MG/5 ML VIAL IV ONE (14:30)
[2016-11-28] MEDS ORDERED: NITROGLYCERIN 2% OINT 1 GM PACKET TOPICAL ONE (14:30)
--- NOTE | 2016-11-28 14:59 | EKG ---
Date Performed: 11/27/2016 Time Performed: 20:27:07 PTAGE: 81 years EKG: SINUS BRADYCARDIA WITH OCCASIONAL SUPRAVENTRICULAR PREMATURE COMPLEXES When compared to pre vious tracing, sinus Bradycardia has Replaced atrial fibrillation. BORDERLINE ECG PREVIOUS TRACING : 11/21/2016 12.44.47 DOCTOR: Dimitri Carbajal Interpretating Date/Time 11/28/2016 14:58:41
[2016-11-28] MEDS: HEPARIN-D5W INJ 250 ML IV SCH (16:33)
[2016-11-28] MEDS: ZOLPIDEM TARTRATE 10 MG TAB PO PRN (20:23)
[2016-11-29] VITALS (23 sets, daily range): BP systolic 119–171; BP diastolic 50–88; PULSE 46–146; RESP 12–18; TEMP 97.4–98.2; O2SAT 95–98
[2016-11-29] MEDS: SODIUM CHLOR 0.9% 1000 ML INJ 1,000 ML IV SCH (05:32)
[2016-11-29] MEDS: INSULIN ASPART SUPPLEMENTAL SCALE SQ SCH ×4 (06:50→21:08)
[2016-11-29 06:54] LABS: MEAN CELL VOLUME 95.4 FL (80.0-100.0); MEAN CORPUSCULAR HEMOGLOBIN 32.3 PG (27.0-34.0); MEAN CORPUSCULAR HGB CONC 33.8 % (32.0-36.0); PLATELET COUNT 139 TH/MM3 (150-450); RED BLOOD COUNT 3.98 MIL/MM3 (4.50-5.90); REVIEW FLAG FINAL; WHITE BLOOD COUNT 10.6 TH/MM3 (4.0-11.0)
[2016-11-29 07:45] LABS: BICARBONATE 26.2 MEQ/L (21.0-32.0); POTASSIUM 4.9 MEQ/L (3.5-5.1)
[2016-11-29] MEDS: PANTOPRAZOLE SOD 40 MG DELAYED RELEASE TAB PO SCH (08:17)
[2016-11-29] MEDS: EZETIMIBE 10 MG TAB PO SCH (08:18)
[2016-11-29] MEDS: DIPYRIDAMOLE/ASPIRIN 200 MG/25 MG CAP PO SCH (08:18)
[2016-11-29] MEDS: predniSONE 10 MG TAB PO SCH (08:18)
[2016-11-29] MEDS: SODIUM CHLORIDE 0.9% FLUSH 10 ML FLUSH IV FLUSH SCH ×2 (08:19→21:08)
[2016-11-29] MEDS ORDERED: SODIUM CHLORID 0.9% 500 ML INJ 500 ML IV SCH ×2 (08:30→09:00)
[2016-11-29 08:36] LABS: APTT (PATIENT) 94.5 SEC (24.3-30.1)
[2016-11-29] MEDS ORDERED: SILODOSIN 8 MG PO SCH (09:00)
--- NOTE | 2016-11-29 10:18 | MB ---
cc: JADE FAUSTIN D.O., HANSCY M.D. PANJA, JAWED KHANNA, ROHIT K. M.D. HIGHET, BRIDGET H. MD DATE OF CONSULTATION 11/28/2016 REASON FOR CONSULTATION Tachy-gary syndrome, atrial fibrillation. I was called by Dr. Torres about Mr. Chatman. He has an 81-year-old gentleman who was having tachy-gary syndrome, rapid episode of tachyarrhythmia followed by pause up to 6-second. The gentleman was very symptomatic. He was having shortness of breath and dizziness. He was sent to the emergency room where he was admitted. The chart was reviewed. The patient was evaluated. ALLERGIES MORPHINE SOCIAL HISTORY The patient is negative for smoking and drinking. FAMILY HISTORY Noncontributory to his current medical condition. MEDICATIONS At home, this gentleman was on: 1. Nexium 2. Prednisone 3. Glimepiride 4. Ambien 5. Zetia 6. Aggrenox REVIEW OF SYSTEMS He refers palpitation, dizziness and near syncope. No chest pain. PHYSICAL EXAM Alert, fully oriented. VITAL SIGNS: His blood pressure on evaluation 167/81, pulse 60, respiratory 18 LUNGS: Ventilated. CARDIOVASCULAR: S1-S2, regular. No gallop. ABDOMEN: Soft. No mass. No bruit. EXTREMITIES: No edema. Electrocardiogram on the monitor shows sinus rhythm with PVCs. A previous electrocardiogram shows supraventricular tachyarrhythmia possible atrial fibrillation. LABORATORY DATA Hemoglobin is 12.9, white blood cell 10.6, potassium of 4.9, creatinine 1.23. Troponin less than 0.02. ASSESSMENT AND RECOMMENDATIONS Mr. Chatman currently is stable. He is having an episode of tachy-gary syndrome. He has atrial fibrillation followed by a recovery six seconds pause. It looks like this is pulmonary vein tachyarrhythmia and atrial fibrillation. Electrophysiology study and ablation discussed with him. The risks, the nature and the benefit of the procedure are clearly stated to him. The risks include pneumothorax, cardiac perforation, stroke and even . He understood and agreed to proceed. Procedure will be performed during hospitalization. MD ELENA Fine/CLARK /8:29 AM /10:09 AM
[2016-11-29] MEDS ORDERED: PROPOFOL 200 MG/20 ML AMP OTHER ONE (12:01)
[2016-11-29] MEDS ORDERED: HEPARIN-NS/PF INJ 500 ML ONE (12:24)
[2016-11-29] MEDS ORDERED: LEVOFLOXACIN 500 MG PREMIX INJ 100 ML IV ONE (12:24)
--- NOTE | 2016-11-29 12:35 | HHI.PR ---
Subjective Remarks Offering no complaint Lying on a bed without any apparent distress Review of system for 12 point system otherwise unremarkable Objective Objective Results - Vital Signs Date Time Temp Pulse Resp B/P Pulse Ox O2 Delivery O2 Flow Rate FiO2 11/29/16 08:15 97.6 93 18 130/76 96 11/29/16 06:00 46 11/29/16 05:00 48 11/29/16 04:00 46 11/29/16 03:00 48 11/29/16 03:00 97.4 47 12 119/50 98 11/29/16 02:00 46 11/29/16 01:00 50 11/29/16 00:00 54 11/28/16 23:00 54 11/28/16 23:00 98.1 56 12 116/53 95 11/28/16 22:00 52 11/28/16 21:00 56 11/28/16 20:00 54 11/28/16 19:50 98.1 58 18 125/56 95 11/28/16 19:00 58 11/28/16 18:01 59 11/28/16 17:01 58 11/28/16 16:00 56 11/28/16 15:01 97.9 129 18 120/91 94 11/28/16 15:00 166 11/28/16 14:45 124 18 158/83 98 11/28/16 13:35 156 18 170/94 97 Room Air I/O 11/28/16 11/28/16 11/28/16 11/29/16 11/29/16 11/29/16 07:00 15:00 23:00 07:00 15:00 23:00 Intake Total 813 ml 1700 ml Output Total 1900 ml 100 ml 750 ml Balance -1900 ml 713 ml 950 ml Intake Oral 240 ml 480 ml IV Total 573 ml 1220 ml Output Urine Total 1900 ml 100 ml 750 ml # Voids 3 2 # Bowel Movements 1 1 0 Result Diagram: 11/29/16 0600 11/29/16 0600 Other Results Laboratory Tests Test 11/28/16 11/29/16 11/29/16 13:47 06:00 07:28 Troponin I LESS THAN 0.02 White Blood Count 10.6 Red Blood Count 3.98 Hemoglobin 12.9 Hematocrit 38.0 Mean Corpuscular Volume 95.4 Mean Corpuscular Hemoglobin 32.3 Mean Corpuscular Hemoglobin 33.8 Concent Red Cell Distribution Width 14.0 Platelet Count 139 Mean Platelet Volume 9.0 Sodium Level 140 Potassium Level 4.9 Chloride Level 107 Carbon Dioxide Level 26.2 Anion Gap 7 Blood Urea Nitrogen 26 Creatinine 1.23 Estimat Glomerular Filtration 56 Rate Random Glucose 119 Calcium Level 8.2 Activated Partial 94.5 Thromboplast Time Date/Time Procedure Status Source Growth 11/28/16 15:44 Stool Occult Blood ([facility]) - Final Complete Stool Stool HEMOCCULT NEGATIVE Physical Exam Physical Exam GENERAL: Well-nourished white male, looks younger than his stated age, resting in the bed, alert and oriented and a fairly good historian. HEENT: Atraumatic, normocephalic. Right eye droop, chronic. PERRLA. Tongue is midline. Mucous membranes are pink. NECK: Supple. CARDIOVASCULAR: S1, S2, probable soft systolic murmur at the left sternal border. No edema. Pulses are intact. RESPIRATORY: Essentially clear anteriorly and posteriorly with no wheezes, rales or rhonchi. GI: Abdomen is round, soft, nontender, nondistended. Active bowel sounds. MUSCULOSKELETAL: Moves his extremities with purpose. No edema. NEUROLOGIC: He is alert, oriented, awake, able to answer simple questions. Speech is clear and normal. PSYCHIATRIC: Appropriate mood and affect. Insight and judgment is normal. A/P Assessment and Plan 1. Syncope, dizziness without loss of consciousness. 2. Recent history of atrial fibrillation, irregular rhythm, labile between a slow ventricular response and a tachyarrhythmia. Tachybradycardia syndrome 3. Dyspnea. 4. COPD/obstructive sleep apnea. 5. Degenerative disc disease. 6. Diabetes mellitus type II, takes oral hypoglycemics. 7. Hyperglycemia. 8. History of right-sided weakness with TIAs. 9. History of recent bladder cancer. 10. Leukocytosis. 11. Acute kidney injury with dehydration. 12. Hard of hearing. 13.History of dysuria and frequency. Labs reviewed. Decrease. Will monitor gentle hydration. Accu-Cheks a.c. and h.s. per sliding scale. Appreciate consultation by cardiology. Awaiting EP cardiology input. As per RN for EP studies today Pain management as warranted. Pepcid p.o. for PUD prophylaxis. Continue with telemetry monitoring. Medications reviewed Discussed with RN Discussed with patient Clarita Hernandez MD Nov 29, 2016 12:35
[2016-11-29] MEDS ORDERED: HEPARIN SODIUM - IV 10,000 UNITS/10 ML VIAL ONE (14:11)
[2016-11-29] MEDS ORDERED: HEPARIN-D5W INJ 250 ML ONE (14:11)
[2016-11-29] MEDS ORDERED: ISOPROTERENOL HCL 1 MG/5 ML AMP ONE (14:44)
[2016-11-29] MEDS ORDERED: PROTAMINE SULFATE 50 MG/5 ML VIAL ONE (15:22)
[2016-11-29] MEDS ORDERED: DO NOT ADM ANY ANTICOAGULANT DRUGS PRN (15:55)
[2016-11-29] MEDS ORDERED: *HYDROmorphone PF 1 MG VIAL PERIprocedural Use ONLY ONE ×2 (15:57→16:14)
[2016-11-29] MEDS ORDERED: LIDOCAINE HCL 1% 50 ML VIAL INFIL PRN (16:00)
[2016-11-29] MEDS ORDERED: ATROPINE SULFATE 1 MG/ML VIAL IV PRN (16:00)
[2016-11-29] MEDS ORDERED: oxyCODONE/ACETAMINOPHEN 5 MG/325 MG TAB PO PRN ×2 (16:00)
[2016-11-29] MEDS ORDERED: ONDANSETRON HCL 4 MG/2 ML VIAL IV PRN (16:00)
[2016-11-29] MEDS ORDERED: LORazepam 2 MG/ML VIAL IV PRN (16:00)
[2016-11-29] MEDS ORDERED: SODIUM CHLOR 0.9% 250 ML INJ 250 ML IV PRN (16:00)
[2016-11-29] MEDS ORDERED: METOCLOPRAMIDE HCL 10 MG/2 ML VIAL IV PRN (16:00)
[2016-11-29] MEDS ORDERED: BACITRACIN OINT 0.9 GM PKT TOP ONE (16:00)
[2016-11-29] MEDS ORDERED: FUROSEMIDE 20 MG/2 ML VIAL ONE (16:04)
--- NOTE | 2016-11-29 16:06 | PD.CARD ---
Atrial Fibrillation Cryo Study PROCEDURE DATE: Nov 29, 2016 PROCEDURE PERFORMED Electrophysiology study, CS cannulation, 3-D mapping, transeptal approach, right and left heart catheterization, cryoablation of atrial fibrillation, pulmonary vein isolation, posterior ablation, anterior ablation, repeat electrophysiology study on Isuprel infusion, intracardiac echo. Very complex case. INDICATIONS FOR PROCEDURE Mr. Chatman is a 81-year-old male with atrial fibrillation, symptomatic, multiple pauses referred for electrophysiology study and ablation. The risks, the nature and the benefit of the procedure are clearly stated to him. The risks include pneumothorax, cardiac perforation, stroke, need for open heart surgery and even . The patient understood and agreed to proceed. PROCEDURE As written informed consent was obtained prior to esophageal echo, the patient was kept on the table where he was prepped and draped in the usual sterile fashion. Conscious sedation was initiated and throughout the procedure by the anesthesiologist. Once sedation was verified, the right and left inguinal area was anesthetized with 2% Xylocaine. Using modified Seldinger technique, the left femoral vein was cannulated on three occasions and three guidewires were advanced over the wire, one 6, one 7, and one 10-Tristanian Hemaquet were advanced. Then the left femoral artery was done on one occasion, one guidewire was advanced over the wire. A 4-Tristanian Hemaquet was advanced. Then the right femoral vein was cannulated on one occasion and one guidewire was advanced over the wire. An 8-Tristanian Hemaquet was advanced. Then under fluoroscopic guidance through the 6 and 7-Tristanian Hemaquet, two 5- Tristanian Chrissy curved quadripolar electrophysiology catheters were advanced and positioned on the His as well as coronary sinus. The patient was in sinus rhythm. Basic interval was measured. They were all within normal limits. Then through the 10-Tristanian Hemaquet, a 29[place] AcuNav intracardiac echo catheter was advanced and placed at the right atrium. Multiple views were obtained. There was no pericardial effusion. Pulmonary vein was seen. The atrial septum was visualized. Then the 8-Tristanian Hemaquet in the right femoral vein was exchanged for an Agilis transseptal sheath that was placed all the way to the superior vena cava. Through this sheath a [place] needle was advanced. Then the sheath, the dilator and the needle were pulled back progressively until foci engaged. Once the needle was advanced, RF was delivered for 2 seconds. I was able to cross into the left atrium. Once the needle was crossed, the dilator was advanced. Once the dilator was crossed, the sheath was advanced. Once the sheath crossed , the dilator and needle were removed. An intracardiac echo showed the sheath in good position. The patient already received 10,000 units of heparin. The goal is to get an ACT around 360 during the ablation. I decided to proceed with cryoablation. Through the sheath a 0.035 wire was advanced. I did exchange the Agilis sheath for a InnoCC flex sheath. I decided to use a 28mm balloon to cover the posterior and anterior wall for ablation. The balloon was advanced over the IBTgames circumferential catheter. Using Rezzcard maping system, a 3 D mapping of the left atrium was obtained. The veins were very active. First I did engage the left superior vein. The balloon was inflated, complete occlusion obtained. CryoEnergy was delivered for 3 and 3 minutes. Temperature reached -52. Then I did engage the left inferior vein, occlusion obtained. Venography showed complete occlusion and CryoEnergy was delivered for 3 and 3 minutes. Temperature was around -48 to -50. Then the right inferior was engaged, complete occlusion obtained. Temperature reach -48 for 3 and 3 minutes. Then the right superior was engaged. Before CryoEnergy of the right veins, the His catheter was placed at the left and the right subclavian. Phrenic nerve pacing was performed. There was diaphragmatic stimulation. That is going to be used for phrenic nerve monitoring during cryoablation. I did cryoablate the right superior vein. There was no loss of phrenic nerve movement , diaphragmatic movement. Phrenic nerve was intact. The temperature dropped to -54 for 3 and 3 minutes. At that point I removed the balloon. The circumferential catheter was advanced into the veins. There was no signal into the veins. Pacing from the vein showed no conduction to the atrium. Pacing from the atrium showed no conduction to the veins. The patient at this point received Isuprel infusion for around 15 minutes at 20mcg. No tachyarrhythmia was induced, no conduction resumed. Post-Isuprel no conduction resumed either. At that point the procedure was complete. All catheters were removed, the transeptal sheath was exchanged for a 12-Tristanian Hemaquet. Intracardiac echo showed pericardial effusion, still good flow in the pulmonary vein. No incident reported. The patient tolerated the procedure. Blood loss minimal. 1. Electrocardiogram: At baseline the patient was in sinus. Postprocedure the patient in sinus. 2. Basic Interval: Base cycle length was around 980 milliseconds. 3. Tachyarrhythmia: Atrial fibrillation was mapped and ablated. Ablation was successful. CONCLUSION Successful electrophysiology study, mapping and cryo ablation of atrial fibrillation, pulmonary vein isolation, posterior and anterior wall ablation, repeat electrophysiology study on Isuprel infusion. COMMENT AND RECOMMENDATIONS The patient is going to be transferred to the telemetry unit, will be observed, and when stable can be discharged home. George Chacko MD Nov 29, 2016 16:06
[2016-11-29] MEDS ORDERED: FUROSEMIDE 40 MG/4 ML VIAL IV PUSH ONE (16:30)
--- NOTE | 2016-11-29 17:25 | EKG ---
Date Performed: 11/28/2016 Time Performed: 13:33:52 PTAGE: 81 years EKG: ATRIAL FIBRILLATION WITH RAPID VENTRICULAR RESPONSE NONSPECIFIC ST & T-WAVE ABNORMALITY Com pared to PREVIOUS TRACING , there is now evidence of atrial fibrillation with rapid ventricular re sponse with ischemic changes anterolaterally. ABNORMAL RHYTHM ECG INTERPRETATION BASED ON A DEFAULT A GE OF 40 YEARS PREVIOUS TRACIN11/27/2016 20.27 DOCTOR: Arnoldo Navarrete Interpretating Date/Time 11/29/2016 17:23:20
[2016-11-29] MEDS ORDERED: amLODIPine BESYLATE 5 MG TAB PO ONE (18:30)
[2016-11-29] MEDS: APIXABAN 5 MG TABLET PO SCH (21:07)
[2016-11-29] MEDS: ZOLPIDEM TARTRATE 10 MG TAB PO PRN (21:07)
[2016-11-30] VITALS (14 sets, daily range): BP systolic 147–175; BP diastolic 70–88; PULSE 56–74; RESP 16–18; TEMP 98–98.2; O2SAT 95–99
[2016-11-30] MEDS: SODIUM CHLOR 0.9% 1000 ML INJ 1,000 ML IV SCH (01:26)
[2016-11-30 05:14] LABS: APTT (PATIENT) 23.1 SEC (24.3-30.1); PROTHROMBIN TIME - PATIENT 10.6 SEC (9.8-11.6)
[2016-11-30] MEDS: INSULIN ASPART SUPPLEMENTAL SCALE SQ SCH (05:48)
[2016-11-30] MEDS: PANTOPRAZOLE SOD 40 MG DELAYED RELEASE TAB PO SCH (09:00)
[2016-11-30] MEDS: SODIUM CHLORIDE 0.9% FLUSH 10 ML FLUSH IV FLUSH SCH (09:00)
[2016-11-30] MEDS: APIXABAN 5 MG TABLET PO SCH (09:32)
[2016-11-30] MEDS: predniSONE 10 MG TAB PO SCH (09:32)
[2016-11-30] MEDS: EZETIMIBE 10 MG TAB PO SCH (09:32)
--- NOTE | 2016-11-30 10:52 | HHI.PR ---
Subjective Remarks Offering no complaint Lying on a bed without any apparent distress Review of system for 12 point system otherwise unremarkable Objective Objective Results - Vital Signs Date Time Temp Pulse Resp B/P Pulse Ox O2 Delivery O2 Flow Rate FiO2 11/30/16 08:22 98.2 69 18 175/83 95 158/70 11/30/16 06:24 56 11/30/16 05:00 64 11/30/16 04:00 62 11/30/16 03:00 56 11/30/16 03:00 98.2 58 16 147/71 96 11/30/16 02:14 57 11/30/16 01:18 56 11/30/16 00:28 70 11/30/16 00:26 98.0 58 16 150/88 99 11/29/16 23:00 58 11/29/16 22:00 60 11/29/16 21:00 62 11/29/16 20:00 62 11/29/16 19:00 97.9 64 18 148/75 97 11/29/16 19:00 63 11/29/16 18:01 62 11/29/16 17:33 97.6 60 16 171/81 98 11/29/16 17:00 97.3 57 12 165/84 98 Nasal Cannula 2 11/29/16 17:00 59 11/29/16 16:45 56 10 164/82 98 11/29/16 16:30 56 8 165/81 97 11/29/16 16:15 55 8 168/81 97 11/29/16 16:00 57 10 170/93 98 Nasal Cannula 3 11/29/16 15:52 97.3 56 10 172/85 98 Nasal Cannula 3 11/29/16 12:00 54 11/29/16 11:30 98.2 64 18 161/88 95 11/29/16 11:00 58 I/O 11/29/16 11/29/16 11/29/16 11/30/16 11/30/16 11/30/16 07:00 15:00 23:00 07:00 15:00 23:00 Intake Total 1700 ml 500 ml 580 ml Output Total 750 ml 1850 ml 1425 ml Balance 950 ml -1350 ml -845 ml Intake Oral 480 ml 580 ml IV Total 1220 ml 500 ml Output Urine Total 750 ml 1850 ml 1425 ml # Bowel Movements 0 0 1 Result Diagram: 11/29/16 0600 11/29/16 0600 Other Results Laboratory Tests Test 11/30/16 04:15 Prothrombin Time 10.6 Prothromb Time International 1.0 Ratio Activated Partial 23.1 Thromboplast Time Date/Time Procedure Status Source Growth 11/28/16 15:44 Stool Occult Blood ([facility]) - Final Complete Stool Stool HEMOCCULT NEGATIVE Physical Exam Physical Exam GENERAL: Well-nourished white male, looks younger than his stated age, resting in the bed, alert and oriented and a fairly good historian. HEENT: Atraumatic, normocephalic. Right eye droop, chronic. PERRLA. Tongue is midline. Mucous membranes are pink. NECK: Supple. CARDIOVASCULAR: S1, S2, probable soft systolic murmur at the left sternal border. No edema. Pulses are intact. RESPIRATORY: Essentially clear anteriorly and posteriorly with no wheezes, rales or rhonchi. GI: Abdomen is round, soft, nontender, nondistended. Active bowel sounds. MUSCULOSKELETAL: Moves his extremities with purpose. No edema. NEUROLOGIC: He is alert, oriented, awake, able to answer simple questions. Speech is clear and normal. PSYCHIATRIC: Appropriate mood and affect. Insight and judgment is normal. A/P Assessment and Plan 1. Syncope, dizziness without loss of consciousness. 2. Recent history of atrial fibrillation, irregular rhythm, labile between a slow ventricular response and a tachyarrhythmia. Tachybradycardia syndrome 3. Dyspnea. 4. COPD/obstructive sleep apnea. 5. Degenerative disc disease. 6. Diabetes mellitus type II, takes oral hypoglycemics. 7. Hyperglycemia. 8. History of right-sided weakness with TIAs. 9. History of recent bladder cancer. 10. Leukocytosis. 11. Acute kidney injury with dehydration. 12. Hard of hearing. 13.History of dysuria and frequency. Labs reviewed. s/p Successful electrophysiology study, mapping and cryo ablation of atrial fibrillation, pulmonary vein isolation, posterior and anterior wall ablation, repeat electrophysiology study on Isuprel infusion. [facility] input gentle hydration. Accu-Cheks a.c. and h.s. per sliding scale. Appreciate consultation by cardiology. Pain management as warranted. Pepcid p.o. for PUD prophylaxis. on telemetry monitoring. Medications reviewed Discussed with RN Discussed with patient dc home today to follow pcp and cardiology Clarita Hernandez MD Nov 30, 2016 10:52
[2016-11-30] MEDS ORDERED: APIX5TAB PO (10:54)
--- NOTE | 2016-11-30 10:59 | HHI.DS ---
Discharge Summary Admission Date Nov 27, 2016 at 22:47 Admitting Diagnosis Tachy-Reynaldo Syndrome (1) Atrial fibrillation Diagnosis: Principal (2) Tachy-reynaldo syndrome Diagnosis: Principal (3) DM (diabetes mellitus) Diagnosis: Principal (4) HTN (hypertension) Diagnosis: Principal Brief History pt was admitted bc of pause on telemetry monitoring. Patient was seen and followed by drum attendant. EP cardiology consultation was done. EP study was done. Patient followed to have atrial fibrillation with tachybradycardia syndrome. Ablations was done successfully. Post ablation patient is doing better. Started on blood tear. As patient is overall stable if it is okay with cardiology will be discharging home to be followed by primary care doctor and EP cardiology as outpatient. In the meantime patient was monitored for his blood sugar and blood pressure. CBC/BMP: 11/29/16 0600 11/29/16 0600 Significant Findings Laboratory Tests Test 11/27/16 11/28/16 11/28/16 11/28/16 20:40 02:56 08:25 09:30 White Blood Count 15.5 TH/MM3 14.2 TH/MM3 (4.0-11.0) (4.0-11.0) Red Blood Count 4.47 MIL/MM3 4.19 MIL/MM3 (4.50-5.90) (4.50-5.90) Neutrophils (%) (Auto) 90.8 % 79.9 % (16.0-70.0) (16.0-70.0) Lymphocytes (%) (Auto) 4.5 % (9.0-44.0) Neutrophils # (Auto) 14.0 TH/MM3 11.4 TH/MM3 (1.8-7.7) (1.8-7.7) Lymphocytes # (Auto) 0.7 TH/MM3 (1.0-4.8) Neutrophils % (Manual) 84 % (16-70) Lymphocytes % 5 % (9-44) Neutrophils # (Manual) 14.0 TH/MM3 (1.8-7.7) Myelocytes 1 % (0-0) Activated Partial 22.9 SEC 43.6 SEC 51.0 SEC Thromboplast Time (24.3-30.1) (24.3-30.1) (24.3-30.1) Potassium Level 5.4 MEQ/L (3.5-5.1) Blood Urea Nitrogen 31 MG/DL (7-18) 27 MG/DL (7-18) Creatinine 1.52 MG/DL (0.60-1.30) Estimat Glomerular Filtration 44 ML/MIN (>89) 63 ML/MIN (>89) Rate Random Glucose 347 MG/DL 204 MG/DL (74-106) (74-106) Troponin I LESS THAN 0.02 LESS THAN 0.02 LESS THAN 0.02 NG/ML NG/ML NG/ML (0.02-0.05) (0.02-0.05) (0.02-0.05) Platelet Count 142 TH/MM3 (150-450) Test 11/28/16 11/29/16 11/29/16 11/30/16 13:47 06:00 07:28 04:15 Troponin I LESS THAN 0.02 NG/ML (0.02-0.05) Red Blood Count 3.98 MIL/MM3 (4.50-5.90) Hemoglobin 12.9 GM/DL (13.0-17.0) Hematocrit 38.0 % (39.0-51.0) Platelet Count 139 TH/MM3 (150-450) Blood Urea Nitrogen 26 MG/DL (7-18) Estimat Glomerular Filtration 56 ML/MIN (>89) Rate Random Glucose 119 MG/DL (74-106) Calcium Level 8.2 MG/DL (8.5-10.1) Activated Partial 94.5 SEC 23.1 SEC Thromboplast Time (24.3-30.1) (24.3-30.1) Pt Condition on Discharge: Good Discharge Instructions DIET: Follow Instructions for: Heart Healthy Diet, Diabetic Diet Activities you can perform: Weight Bearing as Moris Follow up Referrals: Cardiology - 1 Week with George Chacko MD PCP Follow-up - 1 Week New Medications: Apixaban (Eliquis) 5 Mg Tab 5 MG PO BID blood thining #60 TAB Continued Medications: Esomeprazole DR (Nexium) 40 Mg Capdr 40 MG PO DAILY Ref 0 CAP Ezetimibe (Zetia) 10 Mg Tab 10 MG PO DAILY #30 Ref 0 TAB Glimepiride (Glimepiride) 1 Mg Tab 1 MG PO DAILY Take with breakfast or first main meal Blood Sugar Management Ref 0 TAB Prednisone (Prednisone) 10 Mg Tab 30 MG PO DAILY Ref 0 TAB Silodosin (Rapaflo) 8 Mg Cap 8 MG PO DAILY Manage Prostate Problems #30 Ref 0 CAP Zolpidem (Ambien) 10 Mg Tab 10 MG PO HS PRN INSOMNIA Ref 0 TAB Discontinued Medications: Diltiazem ER 24 HR (Diltiazem ER 24 HR) 240 Mg Clark 240 MG PO DAILY #30 Ref 0 TAB Dipyridamole-Aspirin (Aggrenox) 200-25 Mg Cap 1 CAP PO BID Prevent Blood Clot #60 Ref 0 CAP Clarita Hernandez MD Nov 30, 2016 10:59
--- NOTE | 2016-11-30 11:12 | HHI.PR ---
Subjective Remarks feeling well Objective Vital Signs Date Time Temp Pulse Resp B/P Pulse Ox O2 Delivery O2 Flow Rate FiO2 11/30/16 08:22 98.2 69 18 175/83 95 158/70 11/30/16 06:24 56 11/30/16 05:00 64 11/30/16 04:00 62 11/30/16 03:00 56 11/30/16 03:00 98.2 58 16 147/71 96 11/30/16 02:14 57 11/30/16 01:18 56 11/30/16 00:28 70 11/30/16 00:26 98.0 58 16 150/88 99 11/29/16 23:00 58 11/29/16 22:00 60 11/29/16 21:00 62 11/29/16 20:00 62 11/29/16 19:00 97.9 64 18 148/75 97 11/29/16 19:00 63 11/29/16 18:01 62 11/29/16 17:33 97.6 60 16 171/81 98 11/29/16 17:00 97.3 57 12 165/84 98 Nasal Cannula 2 11/29/16 17:00 59 11/29/16 16:45 56 10 164/82 98 11/29/16 16:30 56 8 165/81 97 11/29/16 16:15 55 8 168/81 97 11/29/16 16:00 57 10 170/93 98 Nasal Cannula 3 11/29/16 15:52 97.3 56 10 172/85 98 Nasal Cannula 3 11/29/16 12:00 54 11/29/16 11:30 98.2 64 18 161/88 95 I/O 11/29/16 11/29/16 11/29/16 11/30/16 11/30/16 11/30/16 07:00 15:00 23:00 07:00 15:00 23:00 Intake Total 1700 ml 500 ml 580 ml Output Total 750 ml 1850 ml 1425 ml Balance 950 ml -1350 ml -845 ml Intake Oral 480 ml 580 ml IV Total 1220 ml 500 ml Output Urine Total 750 ml 1850 ml 1425 ml # Bowel Movements 0 0 1 Result Diagram: 11/29/16 0600 11/29/16 0600 Imaging Alert, fully oriented Lungs: ventilated Heart: S1, S2 regular, no gallop Abdomen: soft, no mass Ext: no edema Last Impressions Chest X-Ray 11/27/16 0000 Signed Impressions: Service Date/Time: Sunday, November 27, 2016 20:49 - CONCLUSION: 1. No acute cardiopulmonary disease. 2. No significant change compared to the previous examination. 3. Degenerative changes throughout the thoracic spine. Nilo Neely MD Current Medications Medications (Trade) Dose Ordered Sig/Dorota Route Start Time Stop Time Status Last Admin (NS 1000 ml Inj) 1,000 ml @ 100 mls/hr Q10H IV 11/27/16 23:26 11/29/16 05:32 (NS Flush) 2 ml UNSCH PRN IV FLUSH 11/27/16 23:30 (NS Flush) 2 ml BID IV FLUSH 11/28/16 09:00 11/30/16 09:00 (Tylenol) 650 mg Q4H PRN PO 11/27/16 23:30 11/30/16 09:36 (Zofran Inj) 4 mg Q6H PRN IVP 11/27/16 23:30 (Dulcolax Supp) 10 mg DAILY PRN RECTAL 11/27/16 23:30 (Senokot) 17.2 mg Q12H PRN PO 11/27/16 23:30 (Narcan Inj) 0.4 mg UNSCH PRN IV 11/27/16 23:30 (D50w (Vial) Inj) 25 ml UNSCH PRN IV PUSH 11/27/16 23:30 (Glucagon Inj) 1 mg UNSCH PRN OTHER 11/27/16 23:30 (Zetia) 10 mg DAILY PO 11/28/16 09:45 11/30/16 09:32 (Deltasone) 30 mg DAILY PO 11/28/16 09:45 11/30/16 09:32 (Ambien) 10 mg HS PRN PO 11/28/16 21:00 11/29/16 21:07 (Protonix) 40 mg DAILY PO 11/28/16 09:45 11/30/16 09:00 Patient Own Medication 8 ea 8 ea DAILY PO 11/29/16 09:00 Hold Sodium Chloride 500 ml @ 30 mls/hr CONTINUOUS IV 11/29/16 08:30 (NS 500 ml Inj) 500 ml @ 30 mls/hr CONTINUOUS IV 11/29/16 09:00 (Percocet 5-325 Mg) 1 tab Q4H PRN PO 11/29/16 16:00 (Percocet 5-325 Mg) 2 tab Q4H PRN PO 11/29/16 16:00 (Ativan Inj) 0.5 mg UNSCH PRN IV 11/29/16 16:00 11/30/16 15:59 Atropine Sulfate 0.5 mg 0.5 mg UNSCH PRN IV 11/29/16 16:00 (NS 250 ml Inj) 250 ml @ 500 mls/hr ONCE PRN IV 11/29/16 16:00 11/30/16 15:59 (Reglan Inj) 10 mg Q4H PRN IV 11/29/16 16:00 (Zofran Inj) 4 mg Q4H PRN IV 11/29/16 16:00 (Xylocaine 1% Inj (50 ml)) 10 ml UNSCH PRN INFIL 11/29/16 16:00 11/30/16 15:59 (Eliquis) 5 mg BID PO 11/29/16 21:00 11/30/16 09:32 Miscellaneous Information ALL NURSING DEPARTME... UNSCH PRN .XX 11/29/16 15:55 11/30/16 15:54 Assessment and Plan Problem List: (1) HTN (hypertension) Status: Acute Plan: SBP 147 BP need to better control (2) Tachy-gary syndrome Status: Acute Plan: HR control. SP ablation (3) Atrial fibrillation Status: Acute Plan: SP afib ablation. In sinsu rhythm No tachy episode. No significant PACs can be DH Follow up with me in 3 weeks Eliquis 5 mg bid Case discussed with George Herrera MD Nov 30, 2016 11:12
--- NOTE | 2016-12-01 21:33 | EKG ---
Date Performed: 11/29/2016 Time Performed: 16:06:32 PTAGE: 81 years EKG: SINUS BRADYCARDIA WITH SHORT VA INTERVAL WITH OCCASIONAL SUPRAVENTRICULAR PREMATURE COMPLEX ES BORDERLINE ECG PREVIOUS TRACING : 11/28/2016 13.33 DOCTOR: George Chacko Interpretating Date/Time 12/01/2016 21:29:35
--- NOTE | 2016-12-03 11:10 | ETE ---
Study Study Date:11/29/2016 STUDY CONCLUSIONS SUMMARY - Left ventricle: The cavity size was normal. Wall thickness was normal. Systolic function was normal. The estimated ejection fraction was in the range of 60% to 65%. Wall motion was normal; there were no regional wall motion abnormalities. - Aortic valve: No evidence of vegetation. - Mitral valve: No evidence of vegetation. Mild regurgitation. - Left atrium: No evidence of thrombus in the atrial cavity or appendage. No evidence of thrombus in the atrial cavity or appendage. - Right atrium: No evidence of thrombus in the atrial cavity or appendage. - Atrial septum: No defect or patent foramen ovale was identified. Echo contrast study showed no [id number] atrial level shunt, at baseline or with provocation. - Tricuspid valve: No evidence of vegetation. - Pulmonic valve: No evidence of vegetation. If LV function is below 40, please consider prescribing an ACEI or ARB or document rationale for non-use. PROCEDURE DATA Consent: The risks, benefits, and alternatives to the procedure were explained to the patient and informed consent was obtained. Procedure: Initial setup. The patient was brought to the laboratory in the fasting state. Intravenous access was obtained. Surface ECG leads and pulse oximetric signals were monitored. Sedation. Conscious sedation was administered by anesthesiology. Transesophageal echocardiography. Topical anesthesia was obtained using viscous lidocaine. A transesophageal probe was inserted by the attending stenographic court reporter. Image quality was good. Study completion: All IVs inserted during the procedure were removed. The patient tolerated the procedure well. There were no complications. Transesophageal echocardiography. 2D, complete spectral Doppler, and color Doppler. CARDIAC ANATOMY LEFT VENTRICLE: The cavity size was normal. Wall thickness was normal. Systolic function was normal. The estimated ejection fraction was in the range of 60% to 65%. Wall motion was normal; there were no regional wall motion abnormalities. AORTIC VALVE: Structurally normal valve. Trileaflet; normal thickness leaflets. Cusp separation was normal. No evidence of vegetation. Doppler: No significant regurgitation. Aorta: - There was no atheroma. There was no evidence for dissection. Aortic root: The aortic root was not dilated. Ascending aorta: The ascending aorta was normal in size. Aortic arch: The aortic arch was normal in size. Descending aorta: The descending aorta was normal in size. MITRAL VALVE: Structurally normal valve. Leaflet separation was normal. No evidence of vegetation. Doppler: Mild regurgitation. LEFT ATRIUM: The atrium was normal in size. No evidence of thrombus in the atrial cavity or appendage. No evidence of thrombus in the atrial cavity or appendage. The appendage was morphologically a left appendage, multilobulated, and of normal size. Emptying velocity was normal. ATRIAL SEPTUM: No defect or patent foramen ovale was identified. Echo contrast study showed no [id number] atrial level shunt, at baseline or with provocation. RIGHT VENTRICLE: The cavity size was normal. Wall thickness was normal. Systolic function was normal. PULMONIC VALVE: Structurally normal valve. No evidence of vegetation. TRICUSPID VALVE: Structurally normal valve. Leaflet separation was normal. No evidence of vegetation. Doppler: Trace regurgitation. PULMONARY ARTERY: The main pulmonary artery was normal-sized. RIGHT ATRIUM: The atrium was normal in size. No evidence of thrombus in the atrial cavity or appendage. The appendage was morphologically a right appendage. PERICARDIUM: There was no pericardial effusion. Prepared and signed by George Chacko [id number]
== END 2016-11-30 12:02 | disposition home or self-care (01) | DRG 274 ==
LOC: NEPC 20:05 → NEDA 22:47 → OBSVTOIN 22:47 → NEDH 11-28 04:16 → HCIN 11-28 14:43
PROVIDERS: ADMIT Specialist; ATTEND Specialist
PROC: 02583ZZ Destruction of Conduction Mechanism, Percutaneous Approach (ICD-10-PCS; principal; 2016-11-29)
PROC: 02K83ZZ Map Conduction Mechanism, Percutaneous Approach (ICD-10-PCS; 2016-11-29)
PROC: 4A0234Z Measurement of Cardiac Electrical Activity, Percutaneous Approach (ICD-10-PCS; 2016-11-29)
DX: I48.91 Unspecified atrial fibrillation (principal); N17.9 Acute kidney failure, unspecified; E11.65 Type 2 diabetes mellitus with hyperglycemia; I49.5 Sick sinus syndrome; E86.0 Dehydration; J44.9 Chronic obstructive pulmonary disease, unspecified; D72.829 Elevated white blood cell count, unspecified; E78.5 Hyperlipidemia, unspecified; G47.33 Obstructive sleep apnea (adult) (pediatric); I10 Essential (primary) hypertension; K21.9 Gastro-esophageal reflux disease without esophagitis; M35.3 Polymyalgia rheumatica; Z79.01 Long term (current) use of anticoagulants; Z85.51 Personal history of malignant neoplasm of bladder; Z86.73 Personal history of transient ischemic attack (TIA), and cerebral infarction without residual deficits
CPT/HCPCS: 71010; 80048; 82272; 82550; 82552; 82948; 83735; 83880; 84484; 85002; 85007; 85025; 85027; 85610; 85730; 93005; 93312; 93320; 93325; 93613; 93623; 93656; 93662; 96365; C1730; C1731; C1732; C1733; C1759; C1766; J1170; J1644; J1815; J1940; J1956; J2720; J3010; J7030; J7512

== ENCOUNTER 2016-12-19 11:36 | Inpatient (IN) | payer MEDICARE, OTHER ==
[2016-12-19] VITALS (16 sets, daily range): BP systolic 104–147; BP diastolic 63–97; PULSE 82–170; RESP 16–24; TEMP 97.9–98.6; O2SAT 96–100
[~2016-12-19] VITALS: Ht 180.3 cm; Wt 71.7 kg
[~2016-12-19 11:36] MED LIST changes: -AGGR20025 PO; +APIX5TAB PO; -DILT1TAB4 PO; -NEXI20CA PO; +NEXI40CA PO; +PRED10 PO; -PRED5TAB PO
[2016-12-19] MEDS ORDERED: ADENOSINE IV SOLN 3 MG/ML 2 ML VIAL ONE (11:45)
[2016-12-19] MEDS ORDERED: DILTIAZEM HCL 25 MG/5 ML VIAL ONE (11:53)
[2016-12-19] MEDS ORDERED: ADENOSINE IV SOLN 3 MG/ML 2 ML VIAL IV PUSH ONE ×2 (12:15)
[2016-12-19] MEDS ORDERED: DILTIAZEM HCL 25 MG/5 ML VIAL IV ONE ×2 (12:15)
[2016-12-19] MEDS: DILTIAZEM INJ 125 MG in SODIUM CHLORIDE 0.9% INJ 100 ML IV SCH ×2 (12:30→21:16)
[2016-12-19] MEDS ORDERED: SODIUM CHLORIDE 0.9% FLUSH 10 ML FLUSH IVF PRN (13:00)
[2016-12-19 13:10] LABS: AUTOMATED NEUTROPHIL # 7.1 TH/MM3 (1.8-7.7); BASOPHIL % 0.4 % (0.0-2.0); EOSINOPHIL % 0.3 % (0.0-4.0); HEMATOCRIT 46.1 % (39.0-51.0); LYMPH % 6.9 % (9.0-44.0); LYMPHOCYTE # 0.6 TH/MM3 (1.0-4.8); MEAN CELL VOLUME 95.1 FL (80.0-100.0); MEAN CORPUSCULAR HEMOGLOBIN 31.9 PG (27.0-34.0); MEAN CORPUSCULAR HGB CONC 33.5 % (32.0-36.0); MONO % 5.7 % (0.0-8.0); NEUT % 86.7 % (16.0-70.0); PLATELET COUNT 144 TH/MM3 (150-450); RED BLOOD COUNT 4.85 MIL/MM3 (4.50-5.90); WHITE BLOOD COUNT 8.2 TH/MM3 (4.0-11.0)
[2016-12-19 13:12] LABS: HEMO FLAGS AUTO DIFF
[2016-12-19 13:23] LABS: APTT (PATIENT) 24.8 SEC (24.3-30.1); PROTHROMBIN TIME - PATIENT 10.5 SEC (9.8-11.6)
--- NOTE | 2016-12-19 13:32 | RADRPT ---
EXAM DATE/TIME: 12/19/2016 13:17 [facility] COMPARISON: CHEST SINGLE AP, November 27, 2016, 20:49. INDICATIONS : Short of breath, cough MEDICAL HISTORY : Chronic obstructive pulmonary disease. atrial fibrillation, 2 tia"s SURGICAL HISTORY : None ENCOUNTER: Initial ACUITY: 1 day PAIN SCORE: 0/10 LOCATION: Bilateral chest FINDINGS: Minimal left basilar atelectasis is noted. The lungs are otherwise clear. No pulmonary edema is noted . The heart is normal. Degenerative changes and mild scoliosis of the thoracic spine are noted. CONCLUSION: Minimal left basilar atelectasis. Degenerative changes and mild scoliosis of the thoracic spine. Nilo Neely MD on December 19, 2016 at 13:29 Board Certified Radiologist. This report was verified electronically.
[2016-12-19 13:33] LABS: BLOOD UREA NITROGEN 23 MG/DL (7-18); CHLORIDE 106 MEQ/L (98-107); GLOMERULAR FILTRATION RATE 48 ML/MIN (>89); MAGNESIUM 2.3 MG/DL (1.5-2.5); SODIUM (NA) 138 MEQ/L (136-145)
[2016-12-19 13:34] LABS: ANION GAP 9 MEQ/L (5-15); CREATINE KINASE 203 U/L (39-308)
[2016-12-19 13:36] LABS: BANDS 16 % (0-6); METAMYELOCYTES 1 % (0-1); MYELOCYTES 2 % (0-0); POLYS (SEG NEUTROPHILS) 66 % (16-70); WBC DIFF SAMPLE 100
[2016-12-19 13:37] LABS: PLATELET ESTIMATE SMEAR LOW (NORMAL); PLATELET MORPHOLOGY NORMAL (NORMAL); POTASSIUM 5.1 MEQ/L (3.5-5.1); SCAN/DIFF FINAL DIFF MANUAL
--- NOTE | 2016-12-19 14:07 | PD ---
HPI Chief Complaint: Cardiac Complaint Time Seen by Provider: 12:07 Travel History International Travel<30 days: No Contact w/Intl Traveler<30days: No Traveled to known affect area: No History of Present Illness HPI 81yo M with PMH of TIA and afib s/p ablation presents to the ED was sent her from PMD's office for tachycardia. Pt has been coughing so went to PMD this morning. There, he felt lightheaded and sob and was found to have heart rate in the 140s to 180s so sent here for further evaluation. Denies any chest pain , n/v, abdominal pain, focal weakness or numbness. Pt was recently admitted for afib with tachybradycardia syndrome s/p successful ablation for Dr. Chacko. 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) Blood Disorders: No Cancer: Yes (bladder) Cardiac Catheterization: Yes Cardiovascular Problems: Yes High Cholesterol: Yes Chemotherapy: Yes (07/23/16) Chest Pain: No Cerebrovascular Accident: Yes (TIA 2007) Diminished Hearing: No Endocrine: No Gastrointestinal Disorders: Yes GERD: Yes Glaucoma: No Genitourinary: No Headaches: Yes Hepatitis: No Hiatal Hernia: No Hypertension: No Immune Disorder: Yes Implanted Vascular Access Dvce: Yes Musculoskeletal: Yes Neurologic: Yes Psychiatric: No Reproductive: No Respiratory: Yes (cpap) Sleep Apnea: Yes Thyroid Disease: No Ulcer: Yes Past Surgical History Abdominal Surgery: No AICD: No Cardiac Surgery: No Ear Surgery: No Endocrine Surgery: No Eye Surgery: Yes (bilat. cataract) Genitourinary Surgery: No Gynecologic Surgery: No Joint Replacement: No Neurologic Surgery: Yes (BILAT. TEMPORAL ARTERY SURGERY 11/20 @) Oral Surgery: No Pacemaker: No Thoracic Surgery: No Other Surgery: Yes (BACK SURGERIES) Social History Alcohol Use: Yes (rarely) Tobacco Use: No Substance Use: No Allergies-Medications (Allergen,Severity, Reaction): Coded Allergies: Morphine (Verified Allergy, Unknown, Hallucinations, 11/27/16) Reported Meds & Prescriptions Reported Meds & Active Scripts Active Eliquis (Apixaban) 5 Mg Tab 5 Mg PO BID Reported Nexium (Esomeprazole DR) 40 Mg Capdr 40 Mg PO DAILY Prednisone 10 Mg Tab 30 Mg PO DAILY Glimepiride 1 Mg Tab 1 Mg PO DAILY Take with breakfast or first main meal Ambien (Zolpidem Tartrate) 10 Mg Tab 10 Mg PO HS PRN Rapaflo (Silodosin) 8 Mg Cap 8 Mg PO DAILY Zetia (Ezetimibe) 10 Mg Tab 10 Mg PO DAILY Review of Systems Except as stated in HPI: all other systems reviewed are Neg Physical Exam Narrative GENERAL: 81yo M in moderate distress. SKIN: Focused skin assessment warm/dry. HEAD: Atraumatic. Normocephalic. EYES: Pupils equal and round. No scleral icterus. No injection or drainage. ENT: No nasal bleeding or discharge. Mucous membranes pink and moist. NECK: Trachea midline. No JVD. CARDIOVASCULAR: Tachycardic. Regular rhythm. RESPIRATORY: + accessory muscle use. Clear to auscultation. Breath sounds equal bilaterally. GASTROINTESTINAL: Abdomen soft, non-tender, nondistended. MUSCULOSKELETAL: No obvious deformities. No clubbing. No cyanosis. No edema. NEUROLOGICAL: Awake and alert. No obvious cranial nerve deficits. Motor grossly within normal limits. Normal speech. PSYCHIATRIC: Appropriate mood and affect; insight and judgment normal. Data Data Last Documented VS Vital Signs Date Time Temp Pulse Resp B/P Pulse Ox O2 Delivery O2 Flow Rate FiO2 12/19/16 13:30 98 Nasal Cannula 2 12/19/16 13:30 113 16 123/73 12/19/16 11:38 98.2 Orders Adenosine Inj (Adenocard Inj) (12/19/16 11:45) Diltiazem Inj (Cardizem Inj) (12/19/16 11:53) Adenosine Inj (Adenocard Inj) (12/19/16 12:15) Adenosine Inj (Adenocard Inj) (12/19/16 12:15) Diltiazem Inj (Cardizem Inj) (12/19/16 12:15) Diltiazem Inj (Cardizem Inj) (12/19/16 12:15) Notify Dr: Other (12/19/16 12:07) Diltiazem Inj (Cardizem Inj) (12/19/16 12:15) Complete Blood Count With Diff (12/19/16 12:56) Basic Metabolic Panel (Bmp) (12/19/16 12:56) B-Type Natriuretic Peptide (12/19/16 12:56) Act Partial Throm Time (Ptt) (12/19/16 12:56) Prothrombin Time / Inr (Pt) (12/19/16 12:56) Magnesium (Mg) (12/19/16 12:56) Ckmb (Isoenzyme) Profile (12/19/16 12:56) Troponin I (12/19/16 12:56) Iv Access Insert/Monitor (12/19/16 12:56) Ecg Monitoring (12/19/16 12:56) Oximetry (12/19/16 12:56) Oxygen Administration (12/19/16 12:56) Chest, Single Ap (12/19/16 12:56) Sodium Chloride 0.9% Flush (Ns Flush) (12/19/16 13:00) CKMB (12/19/16 11:45) CKMB% (12/19/16 11:45) Apixaban (Eliquis) (12/19/16 21:00) Ezetimibe (Zetia) (12/20/16 09:00) Prednisone (Deltasone) (12/20/16 09:00) Zolpidem (Ambien) (12/19/16 14:15) Pantoprazole (Protonix) (12/20/16 09:00) Tamsulosin (Flomax) (12/20/16 09:00) Admit Order (Ed Use Only) (12/19/16 14:13) Consult Cardiology (12/19/16 ) Labs Laboratory Tests Test 12/19/16 11:45 White Blood Count 8.2 TH/MM3 Red Blood Count 4.85 MIL/MM3 Hemoglobin 15.5 GM/DL Hematocrit 46.1 % Mean Corpuscular Volume 95.1 FL Mean Corpuscular Hemoglobin 31.9 PG Mean Corpuscular Hemoglobin 33.5 % Concent Red Cell Distribution Width 14.0 % Platelet Count 144 TH/MM3 Mean Platelet Volume 9.5 FL Neutrophils (%) (Auto) 86.7 % Lymphocytes (%) (Auto) 6.9 % Monocytes (%) (Auto) 5.7 % Eosinophils (%) (Auto) 0.3 % Basophils (%) (Auto) 0.4 % Neutrophils # (Auto) 7.1 TH/MM3 Lymphocytes # (Auto) 0.6 TH/MM3 Monocytes # (Auto) 0.5 TH/MM3 Eosinophils # (Auto) 0.0 TH/MM3 Basophils # (Auto) 0.0 TH/MM3 CBC Comment AUTO DIFF Differential Total Cells 100 Counted Neutrophils % (Manual) 66 % Band Neutrophils % 16 % Lymphocytes % 9 % Monocytes % 6 % Neutrophils # (Manual) 7.0 TH/MM3 Metamyelocytes 1 % Myelocytes 2 % Differential Comment FINAL DIFF MANUAL Platelet Estimate LOW Platelet Morphology Comment NORMAL Prothrombin Time 10.5 SEC Prothromb Time International 1.0 RATIO Ratio Activated Partial 24.8 SEC Thromboplast Time Sodium Level 138 MEQ/L Potassium Level 5.1 MEQ/L Chloride Level 106 MEQ/L Carbon Dioxide Level 23.0 MEQ/L Anion Gap 9 MEQ/L Blood Urea Nitrogen 23 MG/DL Creatinine 1.41 MG/DL Estimat Glomerular Filtration 48 ML/MIN Rate Random Glucose 190 MG/DL Calcium Level 9.1 MG/DL Magnesium Level 2.3 MG/DL Total Creatine Kinase 203 U/L Creatine Kinase MB 4.0 NG/ML Troponin I LESS THAN 0.02 NG/ML B-Type Natriuretic Peptide 130 PG/ML MDM Medical Decision Making Medical Screen Exam Complete: Yes Emergency Medical Condition: Yes Interpretation(s) EKG#1: SVT at 168bpm. Normal axis. EKG#2: s/p cardizem 20mg IV Aflutter at 114bpm. Normal axis. EKG #3: s/p 28mg cardizem IV Aflutter at 85bpm. Differential Diagnosis SVT vs. aflutter Narrative Course 81yo M with lightheadedness and tachycardia today. Pt had narrow complex tachycardia at 168 that was regular. Initially given 6mg of adenosine which broke the rhythm for a second but it went right back. Then 12mg of adenosine given and it did the same thing. Since pt has history of afib and recent ablation, this could be aflutter since it is regular so cardizem 20mg IV given. Pt's heart rate slowed and I was able to visualized flutter waves. It did not last so second dose of cadizem 28mg IV given and HR is now in the 80s. Pt started on cardizem drip. Pt reevaluated at bedside and feels much better. No longer sob or feel lightheaded. Labs reviewed, no leukocytosis. BNP 130. Troponin negative. CXR showed atelectasis. Cardiology consult placed for his pilot steam yacht Dr. Torres. Discussed with hospitalist [facility] Critical Care Narrative Aggregate critical care time was 45 minutes. Time to perform other separately billable procedures was not included in the critical care time. My time did not include minutes spent treating any other patients simultaneously or on activities that did not directly contribute to the patient's treatment. The services I provided to this patient were to treat and/or prevent clinically significant deterioration that could result in: cardiovascular collapse or . I provided critical care services requiring my management, as noted below: Chart data review, documentation time, medication orders and management, vital sign assessments/reviewing monitor data, ordering and reviewing lab tests, ordering and interpreting/reviewing x-rays and diagnostic studies, care of the patient and discussion of the patient with the admitting physicians. Diagnosis Primary Impression: Atrial flutter with rapid ventricular response Admitting Information Admitting Physician Requests: Meena Pedersen DO Dec 19, 2016 14:07
[2016-12-19] MEDS ORDERED: SODIUM CHLORIDE 0.9% FLUSH 10 ML FLUSH IV FLUSH PRN (14:15)
[2016-12-19] MEDS ORDERED: GLUCAGON 1 MG/ML VIAL OTHER PRN (14:15)
[2016-12-19] MEDS ORDERED: DEXTROSE 50% IN WATER 50 ML VIAL(D50) IV PUSH PRN (14:15)
[2016-12-19] MEDS ORDERED: NALOXONE HCL 0.4 MG/ML AMP IV PRN (14:15)
[2016-12-19] MEDS ORDERED: ONDANSETRON HCL 4 MG/2 ML VIAL IVP PRN (14:15)
[2016-12-19] MEDS: SODIUM CHLOR 0.45% 1000 ML INJ 1,000 ML IV SCH (14:35)
--- NOTE | 2016-12-19 15:29 | HHI.HP ---
[facility] Sea Johnson DO Admission Diagnosis Aflutter with RVR Diagnoses: Travel History International Travel<30 Days: No Contact w/Intl Traveler <30 Da: No Traveled to Known Affected Are: No History of Present Illness This is a very pleasant 61-year-old male who has been coughing for a few days. He went to see his primary physician Dr. Johnson today and was found to be tachycardic with a heart rate between 100 [id number] therefore he was referred to the emergency department. He was seen by the undersigned in room C 34 and the emergency department here at [facility]. The patient was found to be tachycardic as above and received 6 mg of penicillin intravenously followed by another 12 mg of IV Ativan and 7. Subsequently once his rate came down it was obvious that he was in atrial flutter. He received 2 doses of 10 mg IV Cardizem each followed by intravenous Cardizem drip. The patient is alert and oriented and denied complaints other than his cough during this examination. A recent echocardiogram showed preserved left ventricular function. He has a history of atrial fibrillation for which he had ablation done by Dr. Chacko. His regular american history teacher is Dr. Torres. He denies any chest pain no fever chills or diaphoresis. No abdominal pain. No focal weakness or numbness. He does have however a chronic problem with polymyalgia rheumatica and has been unable to discontinue prednisone after over a decade of using it. He sees neurologist Dr. Hayden. He recently had temporal artery biopsies. I'm not aware of any pathology report. He has chronic bilateral ptosis. 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 TIA Polymyalgia rheumatica Lower extremity numbness right greater than left Chronic PTOSIS Hyperlipidemia Sleep apnea on C Pap Peptic ulcer disease Heartburn Enlarged prostate Neck pain Back pain Diabetes Past Surgical History Bilateral cataract surgery with lens implantation Bilateral temporal artery biopsies Anterior cervical fusion Low back surgery Allergies: Coded Allergies: Morphine (Verified Allergy, Unknown, Hallucinations, 11/27/16) Active Ordered Medications Reported Meds & Active Scripts Active Eliquis (Apixaban) 5 Mg Tab 5 Mg PO BID Reported Nexium (Esomeprazole DR) 40 Mg Capdr 40 Mg PO DAILY Prednisone 10 Mg Tab 30 Mg PO DAILY Glimepiride 1 Mg Tab 1 Mg PO DAILY Take with breakfast or first main meal Ambien (Zolpidem Tartrate) 10 Mg Tab 10 Mg PO HS PRN Rapaflo (Silodosin) 8 Mg Cap 8 Mg PO DAILY Zetia (Ezetimibe) 10 Mg Tab 10 Mg PO DAILY Family History Reviewed but not contributory Social History No smoking, occasional alcohol, no illicit drug use Physical Exam Vital Signs Vital Signs Date Time Temp Pulse Resp B/P Pulse Ox O2 Delivery O2 Flow Rate FiO2 12/19/16 14:23 84 16 123/71 100 Nasal Cannula 2 12/19/16 13:30 98 Nasal Cannula 2 12/19/16 13:30 113 16 123/73 100 Nasal Cannula 2 12/19/16 13:30 112 123/73 98 Nasal Cannula 2 12/19/16 12:33 113 24 115/64 100 Nasal Cannula 2 12/19/16 12:05 85 18 117/65 100 Nasal Cannula 2 12/19/16 11:56 114 18 114/81 99 Nasal Cannula 2 12/19/16 11:45 18 100 Nasal Cannula 2 12/19/16 11:40 168 18 147/76 100 12/19/16 11:38 98.2 170 17 141/97 98 Physical Exam GENERAL: This is a well-nourished, well-developed patient, in no apparent distress. SKIN: No rashes, ecchymoses or lesions. Cool and dry. HEAD: Atraumatic. Normocephalic. No temporal or scalp tenderness. EYES: left Pupil dilated and not reactive, right pupil round and reactive. Extraocular motions intact. No scleral icterus. No injection or drainage. Bilateral ptosis ENT: Nose without bleeding, purulent drainage or septal hematoma. Throat without erythema, tonsillar hypertrophy or exudate. Uvula midline. Airway patent. NECK: Trachea midline. No JVD or lymphadenopathy. Supple, nontender, no meningeal signs. CARDIOVASCULAR: Tachycardic and irregular RESPIRATORY: Clear to auscultation. Breath sounds equal bilaterally. No wheezes , rales, or rhonchi. GASTROINTESTINAL: Abdomen soft, non-tender, nondistended. No hepato-splenomegaly , or palpable masses. No guarding. MUSCULOSKELETAL: Extremities without clubbing, cyanosis, or edema. No joint tenderness, effusion, or edema noted. No calf tenderness. Negative Homans sign bilaterally. NEUROLOGICAL: Awake and alert. Cranial nerves II through XII intact. Motor and sensory grossly within normal limits. 4 out of 5 muscle strength in all muscle groups. Normal speech. Laboratory Laboratory Tests Test 12/19/16 11:45 White Blood Count 8.2 Red Blood Count 4.85 Hemoglobin 15.5 Hematocrit 46.1 Mean Corpuscular Volume 95.1 Mean Corpuscular Hemoglobin 31.9 Mean Corpuscular Hemoglobin 33.5 Concent Red Cell Distribution Width 14.0 Platelet Count 144 Mean Platelet Volume 9.5 Neutrophils (%) (Auto) 86.7 Lymphocytes (%) (Auto) 6.9 Monocytes (%) (Auto) 5.7 Eosinophils (%) (Auto) 0.3 Basophils (%) (Auto) 0.4 Neutrophils # (Auto) 7.1 Lymphocytes # (Auto) 0.6 Monocytes # (Auto) 0.5 Eosinophils # (Auto) 0.0 Basophils # (Auto) 0.0 CBC Comment AUTO DIFF Differential Total Cells 100 Counted Neutrophils % (Manual) 66 Band Neutrophils % 16 Lymphocytes % 9 Monocytes % 6 Neutrophils # (Manual) 7.0 Metamyelocytes 1 Myelocytes 2 Differential Comment FINAL DIFF MANUAL Platelet Estimate LOW Platelet Morphology Comment NORMAL Prothrombin Time 10.5 Prothromb Time International 1.0 Ratio Activated Partial 24.8 Thromboplast Time Sodium Level 138 Potassium Level 5.1 Chloride Level 106 Carbon Dioxide Level 23.0 Anion Gap 9 Blood Urea Nitrogen 23 Creatinine 1.41 Estimat Glomerular Filtration 48 Rate Random Glucose 190 Calcium Level 9.1 Magnesium Level 2.3 Total Creatine Kinase 203 Creatine Kinase MB 4.0 Troponin I LESS THAN 0.02 B-Type Natriuretic Peptide 130 Result Diagram: 12/19/16 1145 12/19/16 1145 Imaging Last Impressions Chest X-Ray 12/19/16 1256 Signed Impressions: Service Date/Time: November 13:17 - CONCLUSION: Minimal left basilar atelectasis. Degenerative changes and mild scoliosis of the thoracic spine. Nilo Neely MD Assessment and Plan Assessment and Plan Assessment Atrial fibrillation/flutter with rapid response Atelectasis Cough Renal dysfunction Hyperglycemia Mildly elevated potassium level Ongoing polymyalgia rheumatica, for which she takes steroids Management Admit to telemetry Consult cardiology Continue Cardizem Continue home medications including anticoagulation Robitussin Incentive spirometry Accu-Cheks Sliding scale Continue steroids Discussed with patient and his Discussed with nurse discussed with emergency physician 40 minutes Discussed With: Nurse, Family Alia Unger MD Dec 19, 2016 15:29
--- NOTE | 2016-12-19 17:48 | PD.CONS ---
HPI Service Cardiology Consult Requested By Reason for Consult AF Primary Care Physician Sea Johnson DO History of Present Illness 81y/o M with past medical history significant for afib s/p recent ablation with Dr. Chacko, TIA, HTN, HLD, PMR admitted with Atrial Flutter with RVR. He was sent from PMD's office. He reports being in his usual state of health until yesterday when he felt lightheaded and short of breath. He denies chest pain, nausea, vomiting, abdominal pain, focal weakness or numbness. Cardiology has been consulted for AF management. In the ED he was started on Cardizem drip. He is on chronic oral anticoagulation. Last ECHO performed shows preserved LV systolic function. Also recent MPI negative for ischemia. Review of Systems Consitutional: DENIES: Fatigue, Fever, Chills, Weight gain, Weight loss Eyes: DENIES: Amaurosis Fugax, Change in vision HEENT: COMPLAINS OF: Lightheadedness, DENIES: Change in hearing Respiratory: COMPLAINS OF: Shortness of breath, DENIES: See HPI, Cough, Snoring, Wheezing, Sputum production Cardiovascular: DENIES: See HPI, Chest pain, Palpitations, Syncope, Tachycardia Gastrointestinal: DENIES: Nausea, Vomiting, Change in bowel habits, Reflux, Bloody stools, Melena Genitourinary: DENIES: Urinary incontinence, Difficulty voiding Integumentary: DENIES: Rash Neurologic: DENIES: Tingling or numbness, Memory problems, Poor Balance, Stroke symptoms Musculoskeletal: DENIES: Joint pain, Muscle pain, Limited range of motion, Back pain Psychiatric: DENIES: Anxiety, Depression, Sleep disturbances Hematologic: DENIES: Bruising tendencies, Bleeding tendencies Endocrine: DENIES: Weight gain, Weight loss, Thyroid disease Past Family Social History Allergies: Coded Allergies: Morphine (Verified Allergy, Unknown, Hallucinations, 11/27/16) Past Medical History HTN HLD PMR TIA GERD AFib on OAC BRAN Reported Medications Reported Meds & Active Scripts Active Eliquis (Apixaban) 5 Mg Tab 5 Mg PO BID Reported Nexium (Esomeprazole DR) 40 Mg Capdr 40 Mg PO DAILY Prednisone 10 Mg Tab 30 Mg PO DAILY Glimepiride 1 Mg Tab 1 Mg PO DAILY Take with breakfast or first main meal Ambien (Zolpidem Tartrate) 10 Mg Tab 10 Mg PO HS PRN Rapaflo (Silodosin) 8 Mg Cap 8 Mg PO DAILY Zetia (Ezetimibe) 10 Mg Tab 10 Mg PO DAILY Active Ordered Medications Current Medications Medications (Trade) Dose Ordered Sig/Dorota Route Start Time Stop Time Status Last Admin (Cardizem Inj/NS Inj) 125 ml @ 0 mls/hr TITRATE IV 12/19/16 12:15 12/19/16 12:30 (Eliquis) 5 mg BID PO 12/19/16 21:00 (Zetia) 10 mg DAILY PO 12/20/16 09:00 (Deltasone) 30 mg DAILY PO 12/20/16 09:00 (Ambien) 10 mg HS PRN PO 12/19/16 14:15 (Protonix) 40 mg DAILY PO 12/20/16 09:00 (Flomax) 0.4 mg DAILY PO 12/20/16 09:00 (D50w (Vial) Inj) 25 ml UNSCH PRN IV PUSH 12/19/16 14:15 Glucagon 1 mg 1 mg UNSCH PRN OTHER 12/19/16 14:15 (1/2 NS 1000 ml Inj) 1,000 ml @ 75 mls/hr [id number] IV 12/19/16 14:03 12/19/16 14:35 (NS Flush) 2 ml UNSCH PRN IV FLUSH 12/19/16 14:15 (NS Flush) 2 ml BID IV FLUSH 12/19/16 21:00 (Zofran Inj) 4 mg Q6H PRN IVP 12/19/16 14:15 (Narcan Inj) 0.4 mg UNSCH PRN IV 12/19/16 14:15 Family History Noncontributory Social History Denies tobacco, illicit drug or alcohol use Physical Exam Vital Signs Vital Signs Date Time Temp Pulse Resp B/P Pulse Ox O2 Delivery O2 Flow Rate FiO2 12/19/16 17:02 89 16 119/63 98 Nasal Cannula 12/19/16 15:49 85 16 104/66 100 Nasal Cannula 2 12/19/16 14:23 84 16 123/71 100 Nasal Cannula 2 12/19/16 13:30 98 Nasal Cannula 2 12/19/16 13:30 113 16 123/73 100 Nasal Cannula 2 12/19/16 13:30 112 123/73 98 Nasal Cannula 2 12/19/16 12:33 113 24 115/64 100 Nasal Cannula 2 12/19/16 12:05 85 18 117/65 100 Nasal Cannula 2 12/19/16 11:56 114 18 114/81 99 Nasal Cannula 2 12/19/16 11:45 18 100 Nasal Cannula 2 12/19/16 11:40 168 18 147/76 100 12/19/16 11:38 98.2 170 17 141/97 98 Physical Exam GENERAL: Well-nourished, well-developed patient. SKIN: Warm and dry. HEAD: Normocephalic. EYES: No scleral icterus. No injection or drainage. NECK: Supple, trachea midline. No JVD or lymphadenopathy. CARDIOVASCULAR: Irr Irr murmurs, gallops, or rubs. RESPIRATORY: Breath sounds equal bilaterally. No accessory muscle use. GASTROINTESTINAL: Abdomen soft, non-tender, nondistended. EXTREMITIES: No cyanosis, or edema. NEUROLOGICAL: Awake, alert, and oriented x 3. Non-focal. Laboratory Laboratory Tests Test 12/19/16 11:45 White Blood Count 8.2 Red Blood Count 4.85 Hemoglobin 15.5 Hematocrit 46.1 Mean Corpuscular Volume 95.1 Mean Corpuscular Hemoglobin 31.9 Mean Corpuscular Hemoglobin 33.5 Concent Red Cell Distribution Width 14.0 Platelet Count 144 Mean Platelet Volume 9.5 Neutrophils (%) (Auto) 86.7 Lymphocytes (%) (Auto) 6.9 Monocytes (%) (Auto) 5.7 Eosinophils (%) (Auto) 0.3 Basophils (%) (Auto) 0.4 Neutrophils # (Auto) 7.1 Lymphocytes # (Auto) 0.6 Monocytes # (Auto) 0.5 Eosinophils # (Auto) 0.0 Basophils # (Auto) 0.0 CBC Comment AUTO DIFF Differential Total Cells 100 Counted Neutrophils % (Manual) 66 Band Neutrophils % 16 Lymphocytes % 9 Monocytes % 6 Neutrophils # (Manual) 7.0 Metamyelocytes 1 Myelocytes 2 Differential Comment FINAL DIFF MANUAL Platelet Estimate LOW Platelet Morphology Comment NORMAL Prothrombin Time 10.5 Prothromb Time International 1.0 Ratio Activated Partial 24.8 Thromboplast Time Sodium Level 138 Potassium Level 5.1 Chloride Level 106 Carbon Dioxide Level 23.0 Anion Gap 9 Blood Urea Nitrogen 23 Creatinine 1.41 Estimat Glomerular Filtration 48 Rate Random Glucose 190 Calcium Level 9.1 Magnesium Level 2.3 Total Creatine Kinase 203 Creatine Kinase MB 4.0 Troponin I LESS THAN 0.02 B-Type Natriuretic Peptide 130 Date/Time Procedure Status Source Growth 12/19/16 15:40 Influenza Types A,B Antigen ([facility]) - Final Complete Nasal Washing NEGATIVE FOR FLU A AND B ANTIGEN.... Result Diagram: 12/19/16 1145 12/19/16 1145 Imaging Last Impressions Chest X-Ray 12/19/16 1256 Signed Impressions: Service Date/Time: November 13:17 - CONCLUSION: Minimal left basilar atelectasis. Degenerative changes and mild scoliosis of the thoracic spine. Nilo Neely MD Assessment and Plan Problem List: (1) Atrial fibrillation Assessment and Plan: 81 y/o M admitted with new atrial flutter with RVR, known to have tachy-gary syndrome s/p recent ablation with Dr. Chacko. Afebrile and hemodynamically stable. Symptoms related to RVR, which is now resolved. On the Cardizem drip. Cardiac markers negative, recent MPI unremarkable. Recommendations: 1. Continue Cardizem drip 2. Continue OAC 3. Consult Dr. Chacko 4. Avoid electrolytes abnormalities 5. Telemetry monitoring Further therapy to be determined (2) Tachy-gary syndrome (3) HTN (hypertension) (4) DM (diabetes mellitus) (5) BRAN (obstructive sleep apnea) Problem Qualifiers (1) Atrial fibrillation: Qualified Code: I48.91 - Atrial fibrillation, unspecified type (2) HTN (hypertension): Qualified Code: I10 - Essential hypertension (3) DM (diabetes mellitus): Uriel Ness MD Dec 19, 2016 17:48
[2016-12-19] MEDS: SODIUM CHLORIDE 0.9% FLUSH 10 ML FLUSH IV FLUSH SCH (21:00)
[2016-12-19] MEDS: APIXABAN 5 MG TABLET PO SCH (21:16)
[2016-12-19] MEDS: INSULIN ASPART SUPPLEMENTAL SCALE SQ SCH ×2 (21:16→21:17)
[2016-12-19] MEDS: ZOLPIDEM TARTRATE 10 MG TAB PO PRN (21:21)
[2016-12-20] VITALS (17 sets, daily range): BP systolic 115–151; BP diastolic 66–78; PULSE 67–100; RESP 20; TEMP 97.4–98.8; O2SAT 95–98
[2016-12-20] MEDS: SODIUM CHLOR 0.45% 1000 ML INJ 1,000 ML IV SCH ×2 (03:23→16:53)
[2016-12-20] MEDS: INSULIN ASPART SUPPLEMENTAL SCALE SQ SCH ×4 (06:16→21:00)
--- NOTE | 2016-12-20 08:56 | HHI.PR ---
Subjective Remarks no cp no sob c/o 'dry' cough, no sputum no palpitations HR 140s on Cardizem at 15/hr no fever Objective Objective Results - Vital Signs Date Time Temp Pulse Resp B/P Pulse Ox O2 Delivery O2 Flow Rate FiO2 12/20/16 06:00 100 12/20/16 05:00 82 12/20/16 04:37 97.4 83 125/74 98 12/20/16 04:00 82 12/20/16 03:00 82 12/20/16 02:00 82 12/20/16 01:00 84 12/20/16 00:36 97.7 84 115/68 97 12/20/16 00:00 82 12/19/16 23:00 83 12/19/16 22:00 82 12/19/16 21:00 84 12/19/16 20:00 86 12/19/16 19:00 98.6 86 117/65 96 12/19/16 19:00 84 12/19/16 18:05 84 12/19/16 17:34 97.9 85 18 144/79 99 12/19/16 17:02 89 16 119/63 98 Nasal Cannula 12/19/16 15:49 85 16 104/66 100 Nasal Cannula 2 12/19/16 14:23 84 16 123/71 100 Nasal Cannula 2 12/19/16 13:30 98 Nasal Cannula 2 12/19/16 13:30 113 16 123/73 100 Nasal Cannula 2 12/19/16 13:30 112 123/73 98 Nasal Cannula 2 12/19/16 12:33 113 24 115/64 100 Nasal Cannula 2 12/19/16 12:05 85 18 117/65 100 Nasal Cannula 2 12/19/16 11:56 114 18 114/81 99 Nasal Cannula 2 12/19/16 11:45 18 100 Nasal Cannula 2 12/19/16 11:40 168 18 147/76 100 12/19/16 11:38 98.2 170 17 141/97 98 I/O 12/19/16 12/19/16 12/19/16 12/20/16 12/20/16 12/20/16 07:00 15:00 23:00 07:00 15:00 23:00 Intake Total 240 ml Output Total 250 ml Balance -10 ml Intake Oral 240 ml Output Urine Total 250 ml # Voids 1 # Bowel Movements 1 Result Diagram: 12/19/16 1145 12/19/16 1145 Imaging Last Impressions Chest X-Ray 12/19/16 1256 Signed Impressions: Service Date/Time: November 13:17 - CONCLUSION: Minimal left basilar atelectasis. Degenerative changes and mild scoliosis of the thoracic spine. Nilo Neely MD Other Results Laboratory Tests Test 12/19/16 11:45 White Blood Count 8.2 Red Blood Count 4.85 Hemoglobin 15.5 Hematocrit 46.1 Mean Corpuscular Volume 95.1 Mean Corpuscular Hemoglobin 31.9 Mean Corpuscular Hemoglobin 33.5 Concent Red Cell Distribution Width 14.0 Platelet Count 144 Mean Platelet Volume 9.5 Neutrophils (%) (Auto) 86.7 Lymphocytes (%) (Auto) 6.9 Monocytes (%) (Auto) 5.7 Eosinophils (%) (Auto) 0.3 Basophils (%) (Auto) 0.4 Neutrophils # (Auto) 7.1 Lymphocytes # (Auto) 0.6 Monocytes # (Auto) 0.5 Eosinophils # (Auto) 0.0 Basophils # (Auto) 0.0 CBC Comment AUTO DIFF Differential Total Cells 100 Counted Neutrophils % (Manual) 66 Band Neutrophils % 16 Lymphocytes % 9 Monocytes % 6 Neutrophils # (Manual) 7.0 Metamyelocytes 1 Myelocytes 2 Differential Comment FINAL DIFF MANUAL Platelet Estimate LOW Platelet Morphology Comment NORMAL Prothrombin Time 10.5 Prothromb Time International 1.0 Ratio Activated Partial 24.8 Thromboplast Time Sodium Level 138 Potassium Level 5.1 Chloride Level 106 Carbon Dioxide Level 23.0 Anion Gap 9 Blood Urea Nitrogen 23 Creatinine 1.41 Estimat Glomerular Filtration 48 Rate Random Glucose 190 Calcium Level 9.1 Magnesium Level 2.3 Total Creatine Kinase 203 Creatine Kinase MB 4.0 Troponin I LESS THAN 0.02 B-Type Natriuretic Peptide 130 Date/Time Procedure Status Source Growth 12/19/16 15:40 Influenza Types A,B Antigen ([facility]) - Final Complete Nasal Washing NEGATIVE FOR FLU A AND B ANTIGEN.... ROS General: No: Fatigue, Weakness HEENT: No: Sore Throat, Dysphagia Cardiac: No: Chest Pain, Edema, Palpitations Pulmonary: Cough, No: SOB, Wheezing, Other GI: No: Abdominal Pain, BM, Diarrhea, N/V /PHONE REPRESENTATIVE: No: Dysuria, Urgency Neuro/MS: No: Lightheaded, Confusion Psych: No: Anxiety, Depression Skin: No: Itching, Rash Physical Exam Physical Exam GENERAL: This is a well-nourished, well-developed patient, in no apparent distress. SKIN: No rashes, ecchymoses or lesions. Cool and dry. HEAD: Atraumatic. Normocephalic. No temporal or scalp tenderness. EYES: left Pupil dilated and not reactive, right pupil round and reactive. Extraocular motions intact. No scleral icterus. No injection or drainage. Bilateral ptosis ENT: Nose without bleeding, purulent drainage or septal hematoma. Throat without erythema, tonsillar hypertrophy or exudate. Uvula midline. Airway patent. NECK: Trachea midline. No JVD or lymphadenopathy. Supple, nontender, no meningeal signs. CARDIOVASCULAR: Tachycardic and irregular RESPIRATORY: Clear to auscultation. Breath sounds equal bilaterally. No wheezes , rales, or rhonchi. GASTROINTESTINAL: Abdomen soft, non-tender, nondistended. No hepato-splenomegaly , or palpable masses. No guarding. MUSCULOSKELETAL: Extremities without clubbing, cyanosis, or edema. No joint tenderness, effusion, or edema noted. No calf tenderness. Negative Homans sign bilaterally. NEUROLOGICAL: Awake and alert. Cranial nerves II through XII intact. Motor and sensory grossly within normal limits. 4 out of 5 muscle strength in all muscle groups. Normal speech. Urinary Catheter: No Vascular Central Line Catheter: No A/P Diagnosis: (1) Atrial flutter with rapid ventricular response (2) Atrial fibrillation (3) HTN (hypertension) (4) DM (diabetes mellitus) (5) BRAN (obstructive sleep apnea) (6) Polymyalgia rheumatica (7) Cough (8) Renal insufficiency Assessment and Plan continue Cardizem gtt, now up to 15/hr HR remains uncontrolled Dr. Maldonado evaluated, consulted Dr. Chacko RN to call Dr. Maldonado for further recommendations, may need Amiodarone continue Eliquis persistent cough, no sputum, no fever Robitusin DM PRN continue PO steroids Accuchecks AC/HS with ISS Renal insufficiency continue IVF Continue Eliquis for DVT prophylaxis continue with above treatment Labs in am D/W RN D/W Dr. Unger D/W pt This patient was seen by myself and Dr. Unger, this note is written on his behalf. Problem Qualifiers (1) Atrial fibrillation: Qualified Code: I48.91 - Atrial fibrillation, unspecified type (2) HTN (hypertension): Qualified Code: I10 - Essential hypertension (3) DM (diabetes mellitus): Lisa Candelaria Dec 20, 2016 08:56
[2016-12-20] MEDS ORDERED: guaiFENesin/DEXTROMETHORPHAN 200 MG/20 MG/10 ML CUP PO PRN (09:00)
[2016-12-20] MEDS: SODIUM CHLORIDE 0.9% FLUSH 10 ML FLUSH IV FLUSH SCH ×2 (10:00→21:00)
[2016-12-20] MEDS: TAMSULOSIN HCL 0.4 MG CAP PO SCH (10:01)
[2016-12-20] MEDS: PANTOPRAZOLE SOD 40 MG DELAYED RELEASE TAB PO SCH (10:01)
[2016-12-20] MEDS: predniSONE 10 MG TAB PO SCH (10:01)
[2016-12-20] MEDS: APIXABAN 5 MG TABLET PO SCH ×2 (10:01→21:25)
[2016-12-20] MEDS: EZETIMIBE 10 MG TAB PO SCH (10:02)
[2016-12-20] MEDS ORDERED: AMIODARONE INJ 150 MG in DEXTROSE 5% IN WATER 100ML INJ 100 ML IV ONE ×2 (10:45)
--- NOTE | 2016-12-20 11:10 | PD.CARD.PN ---
Subjective Subjective Remarks morning events noted pt had an episode of afib with rvr now back in SR Objective Medications Current Medications Medications (Trade) Dose Ordered Sig/Dorota Route Start Time Stop Time Status Last Admin (Cardizem Inj/NS Inj) 125 ml @ 0 mls/hr TITRATE IV 12/19/16 12:15 12/19/16 21:16 (Eliquis) 5 mg BID PO 12/19/16 21:00 12/20/16 10:01 (Zetia) 10 mg DAILY PO 12/20/16 09:00 12/20/16 10:02 (Deltasone) 30 mg DAILY PO 12/20/16 09:00 12/20/16 10:01 (Ambien) 10 mg HS PRN PO 12/19/16 14:15 12/19/16 21:21 (Protonix) 40 mg DAILY PO 12/20/16 09:00 12/20/16 10:01 (Flomax) 0.4 mg DAILY PO 12/20/16 09:00 12/20/16 10:01 (D50w (Vial) Inj) 25 ml UNSCH PRN IV PUSH 12/19/16 14:15 Glucagon 1 mg 1 mg UNSCH PRN OTHER 12/19/16 14:15 (1/2 NS 1000 ml Inj) 1,000 ml @ 75 mls/hr [id number] IV 12/19/16 14:03 12/20/16 03:23 (NS Flush) 2 ml UNSCH PRN IV FLUSH 12/19/16 14:15 (NS Flush) 2 ml BID IV FLUSH 12/19/16 21:00 12/20/16 10:00 (Zofran Inj) 4 mg Q6H PRN IVP 12/19/16 14:15 (Narcan Inj) 0.4 mg UNSCH PRN IV 12/19/16 14:15 (Robitussin Dm 200-20 Mg/10 ml Liq) 10 ml Q6H PRN PO 12/20/16 09:00 12/20/16 10:00 Vital Signs / I&O Vital Signs Date Time Temp Pulse Resp B/P Pulse Ox O2 Delivery O2 Flow Rate FiO2 12/20/16 07:00 98.6 86 117/72 97 12/20/16 06:00 100 12/20/16 05:00 82 12/20/16 04:37 97.4 83 125/74 98 12/20/16 04:00 82 12/20/16 03:00 82 12/20/16 02:00 82 12/20/16 01:00 84 12/20/16 00:36 97.7 84 115/68 97 12/20/16 00:00 82 12/19/16 23:00 83 12/19/16 22:00 82 12/19/16 21:00 84 12/19/16 20:00 86 12/19/16 19:00 98.6 86 117/65 96 12/19/16 19:00 84 12/19/16 18:05 84 12/19/16 17:34 97.9 85 18 144/79 99 12/19/16 17:02 89 16 119/63 98 Nasal Cannula 12/19/16 15:49 85 16 104/66 100 Nasal Cannula 2 12/19/16 14:23 84 16 123/71 100 Nasal Cannula 2 12/19/16 13:30 98 Nasal Cannula 2 12/19/16 13:30 113 16 123/73 100 Nasal Cannula 2 12/19/16 13:30 112 123/73 98 Nasal Cannula 2 12/19/16 12:33 113 24 115/64 100 Nasal Cannula 2 12/19/16 12:05 85 18 117/65 100 Nasal Cannula 2 12/19/16 11:56 114 18 114/81 99 Nasal Cannula 2 12/19/16 11:45 18 100 Nasal Cannula 2 12/19/16 11:40 168 18 147/76 100 12/19/16 11:38 98.2 170 17 141/97 98 I/O 12/19/16 12/19/16 12/19/16 12/20/16 12/20/16 12/20/16 07:00 15:00 23:00 07:00 15:00 23:00 Intake Total 240 ml Output Total 250 ml Balance -10 ml Intake Oral 240 ml Output Urine Total 250 ml # Voids 1 # Bowel Movements 1 Physical Exam GENERAL: Well-nourished, well-developed patient. SKIN: Warm and dry. HEAD: Normocephalic. EYES: No scleral icterus. No injection or drainage. NECK: Supple, trachea midline. No JVD or lymphadenopathy. CARDIOVASCULAR: Regular rate and rhythm without murmurs, gallops, or rubs. RESPIRATORY: Breath sounds equal bilaterally. No accessory muscle use. GASTROINTESTINAL: Abdomen soft, non-tender, nondistended. EXTREMITIES: No cyanosis, or edema. NEUROLOGICAL: Awake, alert, and oriented x 3. Non-focal. Laboratory Laboratory Tests Test 12/19/16 11:45 White Blood Count 8.2 TH/MM3 Red Blood Count 4.85 MIL/MM3 Hemoglobin 15.5 GM/DL Hematocrit 46.1 % Mean Corpuscular Volume 95.1 FL Mean Corpuscular Hemoglobin 31.9 PG Mean Corpuscular Hemoglobin 33.5 % Concent Red Cell Distribution Width 14.0 % Platelet Count 144 TH/MM3 Mean Platelet Volume 9.5 FL Neutrophils (%) (Auto) 86.7 % Lymphocytes (%) (Auto) 6.9 % Monocytes (%) (Auto) 5.7 % Eosinophils (%) (Auto) 0.3 % Basophils (%) (Auto) 0.4 % Neutrophils # (Auto) 7.1 TH/MM3 Lymphocytes # (Auto) 0.6 TH/MM3 Monocytes # (Auto) 0.5 TH/MM3 Eosinophils # (Auto) 0.0 TH/MM3 Basophils # (Auto) 0.0 TH/MM3 CBC Comment AUTO DIFF Differential Total Cells 100 Counted Neutrophils % (Manual) 66 % Band Neutrophils % 16 % Lymphocytes % 9 % Monocytes % 6 % Neutrophils # (Manual) 7.0 TH/MM3 Metamyelocytes 1 % Myelocytes 2 % Differential Comment FINAL DIFF MANUAL Platelet Estimate LOW Platelet Morphology Comment NORMAL Prothrombin Time 10.5 SEC Prothromb Time International 1.0 RATIO Ratio Activated Partial 24.8 SEC Thromboplast Time Sodium Level 138 MEQ/L Potassium Level 5.1 MEQ/L Chloride Level 106 MEQ/L Carbon Dioxide Level 23.0 MEQ/L Anion Gap 9 MEQ/L Blood Urea Nitrogen 23 MG/DL Creatinine 1.41 MG/DL Estimat Glomerular Filtration 48 ML/MIN Rate Random Glucose 190 MG/DL Calcium Level 9.1 MG/DL Magnesium Level 2.3 MG/DL Total Creatine Kinase 203 U/L Creatine Kinase MB 4.0 NG/ML Troponin I LESS THAN 0.02 NG/ML B-Type Natriuretic Peptide 130 PG/ML Imaging Last Impressions Chest X-Ray 12/19/16 1256 Signed Impressions: Service Date/Time: November 13:17 - CONCLUSION: Minimal left basilar atelectasis. Degenerative changes and mild scoliosis of the thoracic spine. Nilo Neely MD Assessment and Plan Problem List: (1) Atrial fibrillation Assessment and Plan: Cont Cardizem drip and transition to PO (Cardizem 60mg PO QID) Cont OAC Dr. Ricco out of town will be back on Friday. Avoid electrolytes abnormalities Cont Telemetry monitoring (2) Tachy-gary syndrome (3) HTN (hypertension) (4) DM (diabetes mellitus) (5) BRAN (obstructive sleep apnea) Problem Qualifiers (1) Atrial fibrillation: Qualified Code: I48.91 - Atrial fibrillation, unspecified type (2) HTN (hypertension): Qualified Code: I10 - Essential hypertension (3) DM (diabetes mellitus): Uriel Ness MD Dec 20, 2016 11:10
[2016-12-20] MEDS ORDERED: BENZONATATE 100 MG CAP PO SCH (14:00)
[2016-12-20] MEDS: guaiFENesin/CODEINE SYRUP 200 MG/20 MG/10 ML CUP PO PRN ×2 (16:46→21:25)
[2016-12-20] MEDS: BENZONATATE 100 MG CAP PO SCH (16:47)
--- NOTE | 2016-12-20 19:08 | EKG ---
Date Performed: 12/19/2016 Time Performed: 11:42:18 PTAGE: 81 years EKG: SUPRAVENTRICULAR TACHYCARDIA NONSPECIFIC ST & T-WAVE ABNORMALITY Compared to previous estuardo ng, patient is no longer in Sinus rhythm ABNORMAL RHYTHM ECG NO PREVIOUS TRACING DOCTOR: Scottie Torres Interpretating Date/Time 12/20/2016 19:07:19
--- NOTE | 2016-12-20 19:08 | EKG ---
Date Performed: 12/19/2016 Time Performed: 12:03:16 PTAGE: 81 years EKG: ATRIAL FLUTTER/TACHYCARDIA MODERATE INTRAVENTRICULAR CONDUCTION DELAY NONSPECIFIC ST & T-WA VE ABNORMALITY Compared to prior tracing no significant change ABNORMAL ECG NO PREVIOUS TRACING DOCTOR: Scottie Torres Interpretating Date/Time 12/20/2016 19:07:45
--- NOTE | 2016-12-20 19:08 | EKG ---
Date Performed: 12/19/2016 Time Performed: 11:56:19 PTAGE: 81 years EKG: ATRIAL FLUTTER/TACHYCARDIA WITH RAPID VENTRICULAR RESPONSE NONSPECIFIC ST & T-WAVE ABNORMAL ITY Compared to previous tracing, ventricular rate is slower ABNORMAL RHYTHM ECG NO PREVIOUS TRACING DOCTOR: Scottie Torres Interpretating Date/Time 12/20/2016 19:07:36
[2016-12-20] MEDS: ZOLPIDEM TARTRATE 10 MG TAB PO PRN (21:25)
[2016-12-21] VITALS (25 sets, daily range): BP systolic 131–155; BP diastolic 57–75; PULSE 62–83; RESP 20; TEMP 97.7–98.1; O2SAT 95–98
[2016-12-21 05:35] LABS: HEMATOCRIT 37.8 % (39.0-51.0); MEAN CELL VOLUME 95.8 FL (80.0-100.0); MEAN CORPUSCULAR HEMOGLOBIN 31.3 PG (27.0-34.0); MEAN CORPUSCULAR HGB CONC 32.7 % (32.0-36.0); PLATELET COUNT 106 TH/MM3 (150-450); RED BLOOD COUNT 3.94 MIL/MM3 (4.50-5.90); RED CELL DISTRIBUTION WIDTH 13.8 % (11.6-17.2); REVIEW FLAG FINAL; WHITE BLOOD COUNT 9.4 TH/MM3 (4.0-11.0)
[2016-12-21] MEDS: SODIUM CHLOR 0.45% 1000 ML INJ 1,000 ML IV SCH ×2 (05:49→18:23)
[2016-12-21 06:01] LABS: BICARBONATE 21.3 MEQ/L (21.0-32.0); POTASSIUM 4.1 MEQ/L (3.5-5.1)
[2016-12-21] MEDS: INSULIN ASPART SUPPLEMENTAL SCALE SQ SCH ×4 (06:27→20:50)
[2016-12-21] MEDS: guaiFENesin/CODEINE SYRUP 200 MG/20 MG/10 ML CUP PO PRN (08:22)
[2016-12-21] MEDS: BENZONATATE 100 MG CAP PO SCH ×3 (08:23→16:36)
[2016-12-21] MEDS: SODIUM CHLORIDE 0.9% FLUSH 10 ML FLUSH IV FLUSH SCH ×2 (08:23→20:50)
[2016-12-21] MEDS: predniSONE 10 MG TAB PO SCH (08:24)
[2016-12-21] MEDS: EZETIMIBE 10 MG TAB PO SCH (08:25)
[2016-12-21] MEDS: APIXABAN 5 MG TABLET PO SCH ×2 (08:25→20:50)
[2016-12-21] MEDS: PANTOPRAZOLE SOD 40 MG DELAYED RELEASE TAB PO SCH (08:25)
[2016-12-21] MEDS: TAMSULOSIN HCL 0.4 MG CAP PO SCH (08:26)
--- NOTE | 2016-12-21 11:08 | PD.CARD.PN ---
Subjective Subjective Remarks No complaints today. Brief LOC yesterday for 2-3 secs Objective Medications Current Medications Medications (Trade) Dose Ordered Sig/Dorota Route Start Time Stop Time Status Last Admin (Cardizem Inj/NS Inj) 125 ml @ 0 mls/hr TITRATE IV 12/19/16 12:15 12/19/16 21:16 (Eliquis) 5 mg BID PO 12/19/16 21:00 12/21/16 08:25 (Zetia) 10 mg DAILY PO 12/20/16 09:00 12/21/16 08:25 (Deltasone) 30 mg DAILY PO 12/20/16 09:00 12/21/16 08:24 (Ambien) 10 mg HS PRN PO 12/19/16 14:15 12/20/16 21:25 (Protonix) 40 mg DAILY PO 12/20/16 09:00 12/21/16 08:25 (Flomax) 0.4 mg DAILY PO 12/20/16 09:00 12/21/16 08:26 (D50w (Vial) Inj) 25 ml UNSCH PRN IV PUSH 12/19/16 14:15 Glucagon 1 mg 1 mg UNSCH PRN OTHER 12/19/16 14:15 (1/2 NS 1000 ml Inj) 1,000 ml @ 75 mls/hr [id number] IV 12/19/16 14:03 12/21/16 05:49 (NS Flush) 2 ml UNSCH PRN IV FLUSH 12/19/16 14:15 (NS Flush) 2 ml BID IV FLUSH 12/19/16 21:00 12/21/16 08:23 (Zofran Inj) 4 mg Q6H PRN IVP 12/19/16 14:15 (Narcan Inj) 0.4 mg UNSCH PRN IV 12/19/16 14:15 (Robitussin Ac 200-20 Mg/10 ml Liq) 10 ml Q4H PRN PO 12/20/16 14:00 12/21/16 08:22 (Tessalon) 100 mg TID PO 12/20/16 18:00 12/21/16 08:23 Vital Signs / I&O Vital Signs Date Time Temp Pulse Resp B/P Pulse Ox O2 Delivery O2 Flow Rate FiO2 12/21/16 07:00 97.7 72 144/68 97 12/21/16 06:16 80 12/21/16 05:00 68 12/21/16 04:52 66 155/75 98 12/21/16 04:00 66 12/21/16 03:52 69 12/21/16 02:00 68 12/21/16 01:00 74 12/21/16 00:00 76 12/20/16 23:00 67 12/20/16 23:00 97.4 75 133/78 97 12/20/16 22:00 74 12/20/16 21:00 74 12/20/16 20:00 78 12/20/16 19:00 98.8 78 136/72 95 12/20/16 19:00 82 12/20/16 15:00 98.7 89 20 151/78 97 12/20/16 11:35 98.5 77 138/66 95 I/O 12/20/16 12/20/16 12/20/16 12/21/16 12/21/16 12/21/16 07:00 15:00 23:00 07:00 15:00 23:00 Intake Total 240 ml 1960 ml 1040 ml Output Total 250 ml 602 ml 500 ml Balance -10 ml 1358 ml 540 ml Intake Oral 240 ml 800 ml 240 ml IV Total 1160 ml 800 ml Output Urine Total 250 ml 600 ml 500 ml Stool Total 2 ml # Voids 1 2 2 # Bowel Movements 1 2 Physical Exam GENERAL: Well developed, well nourished. No acute distress. HEENT: Jugular venous pressure is normal. CHEST: Lungs clear to auscultation bilaterally. Unlabored respiratory effort. CARDIAC: Regular rate and rhythm without S3, S4, or murmur. ABDOMEN: Soft, nontender, no hepatosplenomegaly. Bowel sounds present. EXTREMITIES: No clubbing, cyanosis, or edema. Laboratory Laboratory Tests Test 12/21/16 04:30 White Blood Count 9.4 TH/MM3 Red Blood Count 3.94 MIL/MM3 Hemoglobin 12.4 GM/DL Hematocrit 37.8 % Mean Corpuscular Volume 95.8 FL Mean Corpuscular Hemoglobin 31.3 PG Mean Corpuscular Hemoglobin 32.7 % Concent Red Cell Distribution Width 13.8 % Platelet Count 106 TH/MM3 Mean Platelet Volume 9.1 FL Sodium Level 137 MEQ/L Potassium Level 4.1 MEQ/L Chloride Level 106 MEQ/L Carbon Dioxide Level 21.3 MEQ/L Anion Gap 10 MEQ/L Blood Urea Nitrogen 19 MG/DL Creatinine 1.28 MG/DL Estimat Glomerular Filtration 54 ML/MIN Rate Random Glucose 181 MG/DL Calcium Level 8.3 MG/DL Assessment and Plan Problem List: (1) Atrial fibrillation Assessment and Plan: Paroxysmal atrial fib. Some tachy gary. Await Dr. Chacko Friday (2) Tachy-gary syndrome Assessment and Plan: Might end up needing pacemaker. Currently on Eliquis (3) HTN (hypertension) (4) DM (diabetes mellitus) (5) BRAN (obstructive sleep apnea) Problem Qualifiers (1) Atrial fibrillation: Qualified Code: I48.91 - Atrial fibrillation, unspecified type (2) HTN (hypertension): Qualified Code: I10 - Essential hypertension (3) DM (diabetes mellitus): Scottie Torres MD Dec 21, 2016 11:08
--- NOTE | 2016-12-21 16:51 | HHI.PR ---
Subjective Interval History Sleeping, arousable, cough has improved however he is still coughing on and off , denies pain Review of Systems Constitutional Constitutional Remarks As above, 10 systems reviewed and otherwise negative Vitals/Results Intake & Output 12/20/16 12/20/16 12/21/16 15:00 23:00 07:00 Intake Total 1960 ml 1040 ml Output Total 602 ml 500 ml Balance 1358 ml 540 ml Intake Oral 800 ml 240 ml IV Total 1160 ml 800 ml Output Urine Total 600 ml 500 ml Stool Total 2 ml # Voids 2 2 # Bowel Movements 2 Vital Signs Vital Signs Date Time Temp Pulse Resp B/P Pulse Ox O2 Delivery O2 Flow Rate FiO2 12/21/16 13:00 77 12/21/16 12:00 79 12/21/16 11:00 76 12/21/16 11:00 97.9 69 131/67 95 12/21/16 10:00 68 12/21/16 09:00 74 12/21/16 08:00 72 12/21/16 07:00 80 12/21/16 07:00 97.7 72 144/68 97 12/21/16 06:16 80 12/21/16 05:00 68 12/21/16 04:52 66 155/75 98 12/21/16 04:00 66 12/21/16 03:52 69 12/21/16 02:00 68 12/21/16 01:00 74 12/21/16 00:00 76 12/20/16 23:00 67 12/20/16 23:00 97.4 75 133/78 97 12/20/16 22:00 74 12/20/16 21:00 74 12/20/16 20:00 78 12/20/16 19:00 98.8 78 136/72 95 12/20/16 19:00 82 CBC/BMP: 12/21/16 0430 12/21/16 0430 Lab Results Laboratory Tests Test 12/21/16 04:30 White Blood Count 9.4 TH/MM3 Red Blood Count 3.94 MIL/MM3 Hemoglobin 12.4 GM/DL Hematocrit 37.8 % Mean Corpuscular Volume 95.8 FL Mean Corpuscular Hemoglobin 31.3 PG Mean Corpuscular Hemoglobin 32.7 % Concent Red Cell Distribution Width 13.8 % Platelet Count 106 TH/MM3 Mean Platelet Volume 9.1 FL Sodium Level 137 MEQ/L Potassium Level 4.1 MEQ/L Chloride Level 106 MEQ/L Carbon Dioxide Level 21.3 MEQ/L Anion Gap 10 MEQ/L Blood Urea Nitrogen 19 MG/DL Creatinine 1.28 MG/DL Estimat Glomerular Filtration 54 ML/MIN Rate Random Glucose 181 MG/DL Calcium Level 8.3 MG/DL Physical Exam General General Appearance: Well Nourished, Comfortable Eyes Eye Exam: Pupils Reactive Ears & Nose Ears & Nose Exam: Nasal Mucosa [place] Throat Throat Exam: Oral Mucosa [place] & Moist Neck Neck Exam: Trachea Midline Pulmonary Resp Exam: Crackles Cardiology CV Exam: Good Perfusion, Irregular Gastrointestinal/Abdomen GI Exam: Non-Tender, Bowel Sounds Present Musculoskeletal MS Exam: Normal Tone Integumentary Skin Exam: Warm, Dry Neurologic Neuro Exam: Oriented, Speech Clear, Moving All Extremities Psychiatric Psych Exam: Appropriate Responses VTE Prophylaxis VTE Remarks Eliquis Assessment/Plan Assessment/Plan Diagnosis: (1) Atrial flutter with rapid ventricular response on admission, rate controlled today (2) history of Atrial fibrillation (3) HTN (hypertension) (4) DM (diabetes mellitus) (5) BRAN (obstructive sleep apnea) (6) Polymyalgia rheumatica (7) Cough , severe admission, improved (8) Renal insufficiency, follow indices Plan continue Cardizem gtt, Dr. Torres evaluated, waiting to see Dr. Chacko on Friday continue Eliquis, unless withheld by cardiology Incentive spirometry Continue cough suppressant Ambulate if tolerated continue PO steroids for polymyalgia rheumatica Accuchecks AC/HS with ISS Monitor Renal insufficiency DVT prophylaxis D/W RN D/W pt Discussed Condition with: Patient Alia Unger MD Dec 21, 2016 16:50
[2016-12-21] MEDS: DILTIAZEM INJ 125 MG in SODIUM CHLORIDE 0.9% INJ 100 ML IV SCH (18:19)
[2016-12-21] MEDS: ZOLPIDEM TARTRATE 10 MG TAB PO PRN (20:50)
[2016-12-22] VITALS (22 sets, daily range): BP systolic 123–159; BP diastolic 65–80; PULSE 58–78; RESP 18–20; TEMP 97.2–98.2; O2SAT 95–98
[2016-12-22 04:57] LABS: APTT (PATIENT) 23.9 SEC (24.3-30.1)
[2016-12-22 05:16] LABS: BICARBONATE 20.7 MEQ/L (21.0-32.0); POTASSIUM 3.9 MEQ/L (3.5-5.1)
[2016-12-22 05:22] LABS: AUTOMATED NEUTROPHIL # 7.6 TH/MM3 (1.8-7.7); BASOPHIL % 0.4 % (0.0-2.0); EOSINOPHIL # 0.1 TH/MM3 (0-0.4); EOSINOPHIL % 0.7 % (0.0-4.0); HEMATOCRIT 35.8 % (39.0-51.0); LYMPH % 12.7 % (9.0-44.0); LYMPHOCYTE # 1.2 TH/MM3 (1.0-4.8); MEAN CELL VOLUME 95.1 FL (80.0-100.0); MEAN CORPUSCULAR HEMOGLOBIN 31.3 PG (27.0-34.0); MEAN CORPUSCULAR HGB CONC 32.9 % (32.0-36.0); MONO % 7.1 % (0.0-8.0); NEUT % 79.1 % (16.0-70.0); PLATELET COUNT 103 TH/MM3 (150-450); RED BLOOD COUNT 3.76 MIL/MM3 (4.50-5.90); RED CELL DISTRIBUTION WIDTH 13.8 % (11.6-17.2); WHITE BLOOD COUNT 9.6 TH/MM3 (4.0-11.0)
[2016-12-22] MEDS: INSULIN ASPART SUPPLEMENTAL SCALE SQ SCH ×4 (05:33→21:16)
[2016-12-22 05:55] LABS: HEMO FLAGS AUTO DIFF
[2016-12-22 09:20] LABS: BANDS 5 % (0-6); BASOPHILS 2 % (0-2); CORRECTED NUCLEATED RBC 1 /100 WBC (0-0); MYELOCYTES 3 % (0-0); NEUTROPHIL # MANUAL DIFF 7.5 TH/MM3 (1.8-7.7); POLYS (SEG NEUTROPHILS) 70 % (16-70); WBC DIFF SAMPLE 100
[2016-12-22 09:21] LABS: PLATELET ESTIMATE SMEAR LOW (NORMAL); PLATELET MORPHOLOGY NORMAL (NORMAL); SCAN/DIFF FINAL DIFF MANUAL
[2016-12-22] MEDS: BENZONATATE 100 MG CAP PO SCH ×3 (09:25→17:36)
[2016-12-22] MEDS: predniSONE 10 MG TAB PO SCH (09:25)
[2016-12-22] MEDS: APIXABAN 5 MG TABLET PO SCH ×2 (09:26→21:08)
[2016-12-22] MEDS: TAMSULOSIN HCL 0.4 MG CAP PO SCH (09:26)
[2016-12-22] MEDS: EZETIMIBE 10 MG TAB PO SCH (09:26)
[2016-12-22] MEDS: PANTOPRAZOLE SOD 40 MG DELAYED RELEASE TAB PO SCH (09:26)
[2016-12-22] MEDS: SODIUM CHLORIDE 0.9% FLUSH 10 ML FLUSH IV FLUSH SCH ×2 (09:36→21:00)
[2016-12-22] MEDS: guaiFENesin/CODEINE SYRUP 200 MG/20 MG/10 ML CUP PO PRN ×2 (10:00→17:36)
[2016-12-22] MEDS ORDERED: methylPREDNISolone SOD SUCC 125 MG/2 ML VIAL IV ONE (12:30)
[2016-12-22] MEDS ORDERED: FUROSEMIDE 20 MG/2 ML VIAL IV PUSH ONE (12:30)
[2016-12-22] MEDS ORDERED: RESP: ALBUTEROL 2.5 MG/IPRATROPIUM 0.5 MG NEB (PRN) NEB (12:30)
--- NOTE | 2016-12-22 13:10 | RADRPT ---
EXAM DATE/TIME: 12/22/2016 11:43 [facility] COMPARISON: CHEST SINGLE AP, December 19, 2016, 13:17. INDICATIONS : Shortness of breath. MEDICAL HISTORY : None. SURGICAL HISTORY : None. ENCOUNTER: Initial ACUITY: 1 day PAIN SCORE: 0/10 LOCATION: Bilateral chest FINDINGS: The heart size is grossly normal. There is some minimal increased density identified at the bases. The mid and upper lungs appear relatively clear. CONCLUSION: Suspected minimal atelectasis at the bases. Derek Abdul MD on December 22, 2016 at 12:46 Board Certified Radiologist. This report was verified electronically.
--- NOTE | 2016-12-22 13:24 | PD.CARD.PN ---
Subjective Subjective Remarks C/o severe cough. Moderate dyspnea Objective Medications Current Medications Medications (Trade) Dose Ordered Sig/Dorota Route Start Time Stop Time Status Last Admin (Cardizem Inj/NS Inj) 125 ml @ 0 mls/hr TITRATE IV 12/19/16 12:15 12/21/16 18:19 (Eliquis) 5 mg BID PO 12/19/16 21:00 12/22/16 09:26 (Zetia) 10 mg DAILY PO 12/20/16 09:00 12/22/16 09:26 (Deltasone) 30 mg DAILY PO 12/20/16 09:00 12/22/16 09:25 (Ambien) 10 mg HS PRN PO 12/19/16 14:15 12/21/16 20:50 (Protonix) 40 mg DAILY PO 12/20/16 09:00 12/22/16 09:26 (Flomax) 0.4 mg DAILY PO 12/20/16 09:00 12/22/16 09:26 (D50w (Vial) Inj) 25 ml UNSCH PRN IV PUSH 12/19/16 14:15 Glucagon 1 mg 1 mg UNSCH PRN OTHER 12/19/16 14:15 (1/2 NS 1000 ml Inj) 1,000 ml @ 20 mls/hr Q24H IV 12/19/16 14:03 12/21/16 18:23 (NS Flush) 2 ml UNSCH PRN IV FLUSH 12/19/16 14:15 (NS Flush) 2 ml BID IV FLUSH 12/19/16 21:00 12/22/16 09:36 (Zofran Inj) 4 mg Q6H PRN IVP 12/19/16 14:15 (Narcan Inj) 0.4 mg UNSCH PRN IV 12/19/16 14:15 (Robitussin Ac 200-20 Mg/10 ml Liq) 10 ml Q4H PRN PO 12/20/16 14:00 12/22/16 10:00 (Tessalon) 100 mg TID PO 12/20/16 18:00 12/22/16 12:07 Vital Signs / I&O Vital Signs Date Time Temp Pulse Resp B/P Pulse Ox O2 Delivery O2 Flow Rate FiO2 12/22/16 07:00 97.8 68 20 123/70 97 12/22/16 07:00 97 Room Air 12/22/16 06:00 69 12/22/16 05:00 62 12/22/16 04:00 97.9 65 20 142/78 96 12/22/16 04:00 Room Air 12/22/16 04:00 68 12/22/16 03:00 66 12/22/16 02:00 62 12/22/16 01:00 62 12/22/16 00:00 98.2 58 20 159/75 98 12/22/16 00:00 59 12/21/16 23:00 62 12/21/16 22:00 66 12/21/16 21:00 66 12/21/16 20:00 69 12/21/16 20:00 Room Air 12/21/16 20:00 98.0 83 20 151/57 97 12/21/16 19:00 70 12/21/16 18:08 75 12/21/16 17:00 65 12/21/16 16:00 81 12/21/16 15:00 73 12/21/16 15:00 98.1 74 134/68 96 12/21/16 14:00 70 I/O 12/21/16 12/21/16 12/21/16 12/22/16 12/22/16 12/22/16 07:00 15:00 23:00 07:00 15:00 23:00 Intake Total 1040 ml 1500 ml 1540 ml Output Total 500 ml 750 ml Balance 540 ml 1500 ml 790 ml Intake Oral 240 ml 700 ml 240 ml IV Total 800 ml 800 ml 1300 ml Output Urine Total 500 ml 750 ml # Voids 2 5 # Bowel Movements 2 1 Physical Exam GENERAL: Well developed, well nourished. No acute distress. HEENT: Jugular venous pressure is normal. CHEST: Lungs diminished at bases, severe cough CARDIAC: Regular rate and rhythm without S3, S4, or murmur. ABDOMEN: Soft, nontender, no hepatosplenomegaly. Bowel sounds present. EXTREMITIES: No clubbing, cyanosis, or edema. Laboratory Laboratory Tests Test 12/22/16 12/22/16 03:35 03:55 White Blood Count 9.6 TH/MM3 Red Blood Count 3.76 MIL/MM3 Hemoglobin 11.8 GM/DL Hematocrit 35.8 % Mean Corpuscular Volume 95.1 FL Mean Corpuscular Hemoglobin 31.3 PG Mean Corpuscular Hemoglobin 32.9 % Concent Red Cell Distribution Width 13.8 % Platelet Count 103 TH/MM3 Mean Platelet Volume 8.9 FL Neutrophils (%) (Auto) 79.1 % Lymphocytes (%) (Auto) 12.7 % Monocytes (%) (Auto) 7.1 % Eosinophils (%) (Auto) 0.7 % Basophils (%) (Auto) 0.4 % Neutrophils # (Auto) 7.6 TH/MM3 Lymphocytes # (Auto) 1.2 TH/MM3 Monocytes # (Auto) 0.7 TH/MM3 Eosinophils # (Auto) 0.1 TH/MM3 Basophils # (Auto) 0.0 TH/MM3 CBC Comment AUTO DIFF Differential Total Cells 100 Counted Neutrophils % (Manual) 70 % Band Neutrophils % 5 % Lymphocytes % 13 % Monocytes % 7 % Basophils % 2 % Neutrophils # (Manual) 7.5 TH/MM3 Myelocytes 3 % Nucleated Red Blood Cells 1 /100 WBC Differential Comment FINAL DIFF MANUAL Platelet Estimate LOW Platelet Morphology Comment NORMAL Sodium Level 141 MEQ/L Potassium Level 3.9 MEQ/L Chloride Level 110 MEQ/L Carbon Dioxide Level 20.7 MEQ/L Anion Gap 10 MEQ/L Blood Urea Nitrogen 25 MG/DL Creatinine 1.18 MG/DL Estimat Glomerular Filtration 59 ML/MIN Rate Random Glucose 152 MG/DL Calcium Level 8.5 MG/DL Activated Partial 23.9 SEC Thromboplast Time Assessment and Plan Problem List: (1) Atrial fibrillation Assessment and Plan: paqroxysmal (2) Tachy-gary syndrome (3) HTN (hypertension) (4) DM (diabetes mellitus) (5) BRAN (obstructive sleep apnea) Assessment and Plan Consult [id number] Chacko in AM Problem Qualifiers (1) Atrial fibrillation: Qualified Code: I48.91 - Atrial fibrillation, unspecified type (2) HTN (hypertension): Qualified Code: I10 - Essential hypertension (3) DM (diabetes mellitus): Scottie Torres MD Dec 22, 2016 13:23
--- NOTE | 2016-12-22 14:56 | HHI.PR ---
Subjective Subjective Remarks Resting in bed Alert, oriented, poor operative Bowel regimen, BM yesterday No chest pain Active diurese today Review of Systems Constitutional Constitutional: Weakness (generalized) Pulmonary Respiratory: Coughing (occasional), Shortness of Breath (occasional) Psychiatric Psychiatric: Normal Mood Vitals/Results Intake & Output 12/21/16 12/21/16 12/22/16 15:00 23:00 07:00 Intake Total 1500 ml 1540 ml Output Total 750 ml Balance 1500 ml 790 ml Intake Oral 700 ml 240 ml IV Total 800 ml 1300 ml Output Urine Total 750 ml # Voids 5 # Bowel Movements 1 Vital Signs Vital Signs Date Time Temp Pulse Resp B/P Pulse Ox O2 Delivery O2 Flow Rate FiO2 12/22/16 13:44 97 Nasal Cannula 2.00 12/22/16 11:00 98.0 70 20 153/65 96 12/22/16 07:00 97.8 68 20 123/70 97 12/22/16 07:00 97 Room Air 12/22/16 06:00 69 12/22/16 05:00 62 12/22/16 04:00 97.9 65 20 142/78 96 12/22/16 04:00 Room Air 12/22/16 04:00 68 12/22/16 03:00 66 12/22/16 02:00 62 12/22/16 01:00 62 12/22/16 00:00 98.2 58 20 159/75 98 12/22/16 00:00 59 12/21/16 23:00 62 12/21/16 22:00 66 12/21/16 21:00 66 12/21/16 20:00 69 12/21/16 20:00 Room Air 12/21/16 20:00 98.0 83 20 151/57 97 12/21/16 19:00 70 12/21/16 18:08 75 12/21/16 17:00 65 12/21/16 16:00 81 12/21/16 15:00 73 12/21/16 15:00 98.1 74 134/68 96 CBC/BMP: 12/22/16 0335 12/22/16 0335 Lab Results Laboratory Tests Test 12/22/16 12/22/16 03:35 03:55 White Blood Count 9.6 TH/MM3 Red Blood Count 3.76 MIL/MM3 Hemoglobin 11.8 GM/DL Hematocrit 35.8 % Mean Corpuscular Volume 95.1 FL Mean Corpuscular Hemoglobin 31.3 PG Mean Corpuscular Hemoglobin 32.9 % Concent Red Cell Distribution Width 13.8 % Platelet Count 103 TH/MM3 Mean Platelet Volume 8.9 FL Neutrophils (%) (Auto) 79.1 % Lymphocytes (%) (Auto) 12.7 % Monocytes (%) (Auto) 7.1 % Eosinophils (%) (Auto) 0.7 % Basophils (%) (Auto) 0.4 % Neutrophils # (Auto) 7.6 TH/MM3 Lymphocytes # (Auto) 1.2 TH/MM3 Monocytes # (Auto) 0.7 TH/MM3 Eosinophils # (Auto) 0.1 TH/MM3 Basophils # (Auto) 0.0 TH/MM3 CBC Comment AUTO DIFF Differential Total Cells 100 Counted Neutrophils % (Manual) 70 % Band Neutrophils % 5 % Lymphocytes % 13 % Monocytes % 7 % Basophils % 2 % Neutrophils # (Manual) 7.5 TH/MM3 Myelocytes 3 % Nucleated Red Blood Cells 1 /100 WBC Differential Comment FINAL DIFF MANUAL Platelet Estimate LOW Platelet Morphology Comment NORMAL Sodium Level 141 MEQ/L Potassium Level 3.9 MEQ/L Chloride Level 110 MEQ/L Carbon Dioxide Level 20.7 MEQ/L Anion Gap 10 MEQ/L Blood Urea Nitrogen 25 MG/DL Creatinine 1.18 MG/DL Estimat Glomerular Filtration 59 ML/MIN Rate Random Glucose 152 MG/DL Calcium Level 8.5 MG/DL Activated Partial 23.9 SEC Thromboplast Time Imaging Remarks Last Impressions Chest X-Ray 12/22/16 0000 Signed Impressions: Service Date/Time: Thursday, December 22, 2016 11:43 - CONCLUSION: Suspected minimal atelectasis at the bases. Derek Abdul MD Current Medications Administered Medications Medications (Trade) Dose Ordered Sig/Dorota Route PRN Reason Start Time Stop Time Status Last Admin Dose Admin Diltiazem HCl/ Sodium Chloride (Cardizem Inj/NS Inj) 125 ml @ 0 mls/hr TITRATE IV 12/19/16 12:15 12/21/16 18:19 Apixaban (Eliquis) 5 mg BID PO 12/19/16 21:00 12/22/16 09:26 EZETIMIBE (Zetia) 10 mg DAILY PO 12/20/16 09:00 12/22/16 09:26 Prednisone (Deltasone) 30 mg DAILY PO 12/20/16 09:00 12/22/16 09:25 Zolpidem Tartrate (Ambien) 10 mg HS PRN PO INSOMNIA 12/19/16 14:15 12/21/16 20:50 Pantoprazole Sodium (Protonix) 40 mg DAILY PO 12/20/16 09:00 12/22/16 09:26 Tamsulosin HCl 0.4 mg 0.4 mg DAILY PO 12/20/16 09:00 12/22/16 09:26 Sodium Chloride (1/2 NS 1000 ml Inj) 1,000 ml @ 20 mls/hr Q24H IV 12/19/16 14:03 12/21/16 18:23 Sodium Chloride (NS Flush) 2 ml BID IV FLUSH 12/19/16 21:00 12/22/16 09:36 Guaifenesin/ Codeine Phosphate (Robitussin Ac 200-20 Mg/10 ml Liq) 10 ml Q4H PRN PO cough 12/20/16 14:00 12/22/16 10:00 Benzonatate (Tessalon) 100 mg TID PO 12/20/16 18:00 12/22/16 12:07 Physical Exam General General Appearance: Well Nourished, Comfortable, Pale (mild) Eyes Eye Exam: Pupils Reactive Ears & Nose Ears & Nose Exam: Nasal Mucosa [place] Throat Throat Exam: Oral Mucosa [place] & Moist Neck Neck Exam: Trachea Midline Pulmonary Resp Exam: Crackles Cardiology CV Exam: Good Perfusion, Irregular CV Remarks Atrial fibrillation controlled with IV Cardizem Gastrointestinal/Abdomen GI Exam: Non-Tender, Bowel Sounds Present Genitourinary Exam: Clear Urine Musculoskeletal MS Exam: Normal Tone Integumentary Skin Exam: Warm, Dry Neurologic Neuro Exam: Oriented, Speech Clear, Moving All Extremities Psychiatric Psych Exam: Appropriate Responses Assessment/Plan Assessment/Plan Diagnosis: (1) Atrial flutter with rapid ventricular response on admission, rate controlled today (2) Atrial fibrillation, CVR (3) HTN (hypertension) (4) DM (diabetes mellitus) (5) BRAN (obstructive sleep apnea) (6) Polymyalgia rheumatica (7) Cough , severe admission, improved (8) Renal insufficiency, follow indices 9. CHF Plan vitals reviewed, normal trends labs reviewed, Anemia, stable at 11.8 Acute kidney injury with some mild dehydration, patient did receive some IV Lasix today, we'll monitor labs continue Cardizem gtt, Dr. Torres evaluated, waiting to see Dr. Chacko on Friday and review next plan a care continue Eliquis, CHF Cough, mild SOB, Lasix 20mg IV today , active diuresis Incentive spirometry continue PO steroids for polymyalgia rheumatica Accuchecks AC/HS with ISS, mild uncontrolled, 152 Bowel regimen, normal BM yesterday, monitor DVT prophylaxis PUD prophylaxis with Protonix D/W RN D/W pt D/W Dr. Unger, pt seen on his behalf Snehal Sanz Dec 22, 2016 14:56
[2016-12-22] MEDS: FUROSEMIDE 20 MG TAB PO SCH (17:36)
[2016-12-22] MEDS: ZOLPIDEM TARTRATE 10 MG TAB PO PRN (21:08)
[2016-12-22] MEDS: FLUTICASONE PROPIONATE 50 MCG/ACT 16 GM NASAL SPRAY NASAL SCH (21:08)
[2016-12-23] VITALS (23 sets, daily range): BP systolic 134–163; BP diastolic 67–83; PULSE 57–79; RESP 16–18; TEMP 97.6–98; O2SAT 93–99
[2016-12-23] MEDS: INSULIN ASPART SUPPLEMENTAL SCALE SQ SCH ×4 (05:49→21:49)
[2016-12-23 06:55] LABS: AUTOMATED NEUTROPHIL # 10.8 TH/MM3 (1.8-7.7); BASOPHIL % 0.1 % (0.0-2.0); HEMO FLAGS DIFF FINAL; LYMPHOCYTE # 0.5 TH/MM3 (1.0-4.8); MEAN CELL VOLUME 94.9 FL (80.0-100.0); MEAN CORPUSCULAR HGB CONC 32.7 % (32.0-36.0); MONO % 2.6 % (0.0-8.0); NEUT % 93.3 % (16.0-70.0); PLATELET COUNT 125 TH/MM3 (150-450); RED BLOOD COUNT 4.21 MIL/MM3 (4.50-5.90); RED CELL DISTRIBUTION WIDTH 13.9 % (11.6-17.2); WHITE BLOOD COUNT 11.6 TH/MM3 (4.0-11.0)
[2016-12-23 07:30] LABS: ALKALINE PHOSPHATASE 80 U/L (45-117); ALT (GPT) 86 U/L (12-78); ANION GAP 13 MEQ/L (5-15); AST (GOT) 24 U/L (15-37); BLOOD UREA NITROGEN 30 MG/DL (7-18); CHLORIDE 104 MEQ/L (98-107); GLOMERULAR FILTRATION RATE 43 ML/MIN (>89); POTASSIUM 3.9 MEQ/L (3.5-5.1); SODIUM (NA) 140 MEQ/L (136-145); TOTAL BILIRUBIN ADULT 0.9 MG/DL (0.2-1.0)
[2016-12-23] MEDS: FLUTICASONE PROPIONATE 50 MCG/ACT 16 GM NASAL SPRAY NASAL SCH ×2 (09:09→21:49)
[2016-12-23] MEDS: BENZONATATE 100 MG CAP PO SCH ×3 (09:09→17:30)
[2016-12-23] MEDS: TAMSULOSIN HCL 0.4 MG CAP PO SCH (09:10)
[2016-12-23] MEDS: APIXABAN 5 MG TABLET PO SCH (09:10)
[2016-12-23] MEDS: FUROSEMIDE 20 MG TAB PO SCH ×2 (09:10→17:30)
[2016-12-23] MEDS: PANTOPRAZOLE SOD 40 MG DELAYED RELEASE TAB PO SCH (09:10)
[2016-12-23] MEDS: SODIUM CHLORIDE 0.9% FLUSH 10 ML FLUSH IV FLUSH SCH ×2 (09:11→21:00)
[2016-12-23] MEDS: EZETIMIBE 10 MG TAB PO SCH (09:11)
[2016-12-23] MEDS: predniSONE 10 MG TAB PO SCH (09:13)
--- NOTE | 2016-12-23 14:26 | HHI.PR ---
Subjective Subjective Remarks Resting in bed Alert, oriented, Bowel regimen, BM yesterday No chest pain Anxiety mild (Snehal Sanz) Review of Systems Constitutional Constitutional: Weakness (generalized) Constitutional Remarks 10 point ROS done, anxiety mild, no shortness of breath, resolved, bowel regimen , occasional cough other systems negative or unremarkable (Snehal Sanz ) Pulmonary Respiratory: Coughing (occasional), Shortness of Breath (resolved) (Snehal Sanz) Psychiatric Psychiatric: Normal Mood (Snehal Sanz) Vitals/Results Intake & Output 12/22/16 12/22/16 12/23/16 15:00 23:00 07:00 Intake Total 1069 ml 1229 ml Output Total 1600 ml 1250 ml Balance -531 ml -21 ml Intake Oral 650 ml 480 ml IV Total 419 ml 749 ml Output Urine Total 1600 ml 1250 ml # Bowel Movements 0 0 Vital Signs Vital Signs Date Time Temp Pulse Resp B/P Pulse Ox O2 Delivery O2 Flow Rate FiO2 12/23/16 14:00 71 12/23/16 13:00 74 12/23/16 12:00 78 12/23/16 11:00 97.8 79 17 163/83 93 12/23/16 11:00 77 12/23/16 10:00 68 12/23/16 09:00 70 12/23/16 08:00 70 12/23/16 07:39 97.6 71 16 161/73 97 12/23/16 07:30 97 Room Air 12/23/16 07:00 70 12/23/16 06:00 66 12/23/16 04:00 72 12/23/16 04:00 98.0 66 18 144/72 99 12/23/16 03:00 60 12/23/16 01:00 62 12/23/16 00:00 61 12/23/16 00:00 98.0 61 18 143/67 94 12/22/16 23:00 65 12/22/16 20:00 98.0 68 18 158/77 96 12/22/16 20:00 96 Room Air 12/22/16 20:00 68 12/22/16 18:00 60 12/22/16 17:00 72 12/22/16 16:00 78 12/22/16 15:00 97.2 68 18 127/80 95 12/22/16 15:00 70 (Snehal Sanz) CBC/BMP: 12/23/16 0500 12/23/16 0500 Lab Results Laboratory Tests Test 12/23/16 05:00 White Blood Count 11.6 TH/MM3 Red Blood Count 4.21 MIL/MM3 Hemoglobin 13.1 GM/DL Hematocrit 40.0 % Mean Corpuscular Volume 94.9 FL Mean Corpuscular Hemoglobin 31.0 PG Mean Corpuscular Hemoglobin 32.7 % Concent Red Cell Distribution Width 13.9 % Platelet Count 125 TH/MM3 Mean Platelet Volume 9.2 FL Neutrophils (%) (Auto) 93.3 % Lymphocytes (%) (Auto) 4.0 % Monocytes (%) (Auto) 2.6 % Eosinophils (%) (Auto) 0.0 % Basophils (%) (Auto) 0.1 % Neutrophils # (Auto) 10.8 TH/MM3 Lymphocytes # (Auto) 0.5 TH/MM3 Monocytes # (Auto) 0.3 TH/MM3 Eosinophils # (Auto) 0.0 TH/MM3 Basophils # (Auto) 0.0 TH/MM3 CBC Comment DIFF FINAL Differential Comment Sodium Level 140 MEQ/L Potassium Level 3.9 MEQ/L Chloride Level 104 MEQ/L Carbon Dioxide Level 23.0 MEQ/L Anion Gap 13 MEQ/L Blood Urea Nitrogen 30 MG/DL Creatinine 1.54 MG/DL Estimat Glomerular Filtration 43 ML/MIN Rate Random Glucose 260 MG/DL Calcium Level 8.9 MG/DL Total Bilirubin 0.9 MG/DL Aspartate Amino Transf 24 U/L (AST/SGOT) Alanine Aminotransferase 86 U/L (ALT/SGPT) Alkaline Phosphatase 80 U/L Total Protein 6.6 GM/DL Albumin 3.4 GM/DL Current Medications Administered Medications Medications (Trade) Dose Ordered Sig/Dorota Route PRN Reason Start Time Stop Time Status Last Admin Dose Admin Diltiazem HCl/ Sodium Chloride (Cardizem Inj/NS Inj) 125 ml @ 0 mls/hr TITRATE IV 12/19/16 12:15 12/21/16 18:19 Apixaban (Eliquis) 5 mg BID PO 12/19/16 21:00 12/23/16 09:10 EZETIMIBE (Zetia) 10 mg DAILY PO 12/20/16 09:00 12/23/16 09:11 Prednisone (Deltasone) 30 mg DAILY PO 12/20/16 09:00 12/23/16 09:13 Zolpidem Tartrate (Ambien) 10 mg HS PRN PO INSOMNIA 12/19/16 14:15 12/22/16 21:08 Pantoprazole Sodium (Protonix) 40 mg DAILY PO 12/20/16 09:00 12/23/16 09:10 Tamsulosin HCl (Flomax) 0.4 mg DAILY PO 12/20/16 09:00 12/23/16 09:10 Sodium Chloride (NS Flush) 2 ml BID IV FLUSH 12/19/16 21:00 12/23/16 09:11 Guaifenesin/ Codeine Phosphate (Robitussin Ac 200-20 Mg/10 ml Liq) 10 ml Q4H PRN PO cough 12/20/16 14:00 12/22/16 17:36 Benzonatate (Tessalon) 200 mg TID PO 12/22/16 18:00 12/23/16 12:27 Fluticasone Propionate (Flonase Hernan Spr) 1 spray BID NASAL 12/22/16 21:00 12/23/16 09:09 Furosemide (Lasix) 20 mg BID@18 PO 12/22/16 18:00 12/23/16 09:10 (Snehal Sanz) Physical Exam General General Appearance: Well Nourished, Comfortable, Pale (mild) (Snehal Sanz) Eyes Eye Exam: Pupils Reactive (Snehal Sanz) Ears & Nose Ears & Nose Exam: Nasal Mucosa [place] (Snehal Sanz) Throat Throat Exam: Oral Mucosa [place] & Moist (Snehal Sanz) Neck Neck Exam: Trachea Midline (Snehal Sanz) Pulmonary Resp Exam: Crackles (Snehal Sanz) Cardiology CV Exam: Good Perfusion, Irregular CV Remarks Atrial fibrillation controlled with IV Cardizem (Snehal Sanz) Gastrointestinal/Abdomen GI Exam: Non-Tender, Bowel Sounds Present (Snehal Sanz) Genitourinary Exam: Clear Urine (Snehal Sanz) Musculoskeletal MS Exam: Normal Tone (Snehal Sanz) Integumentary Skin Exam: Warm, Dry (Snehal Sanz) Neurologic Neuro Exam: Oriented, Speech Clear, Moving All Extremities (Snehal Sanz) Psychiatric Psych Exam: Appropriate Responses (Snehal Sanz) Assessment/Plan Assessment/Plan Diagnosis: (1) Atrial flutter with rapid ventricular response on admission, rate controlled today (2) Atrial fibrillation, CVR (3) HTN (hypertension) (4) DM (diabetes mellitus) (5) BRAN (obstructive sleep apnea) (6) Polymyalgia rheumatica (7) Cough , severe admission, improved (8) Renal insufficiency, follow indices 9. CHF Plan vitals reviewed, normal trends, afebrile labs reviewed, Leukocytosis and hyperglycemia elevation probable secondary to by mouth steroids Anemia, probable secondary to chronic disease, stable will monitor Acute kidney injury , mild increase, receiving Lasix, we'll monitor labs continue Cardizem gtt currently at 10 mg, atrial fib, CVR Appreciate cardiology consult, visit, pending this pm. Possible cardiac procedures pending continue Eliquis, CHF Cough, SOB resolved, with Lasix and diuresis Incentive spirometry continue PO steroids for polymyalgia rheumatica Accuchecks AC/HS with ISS, mild uncontrolled, 152 Bowel regimen, normal BM 2 days, monitor DVT prophylaxis PUD prophylaxis with Protonix D/W RN D/W pt and D/W Dr. Rivera, pt seen on his behalf (Snehal Sanz) Assessment/Plan pt is seen & examined chart reviewed d/w PT d/w Snehal d/w RN agree w above await Dr louise's input will f/u (Hakeem Rivera MD) Snehal Sanz Dec 23, 2016 14:26 Hakeem Rivera MD Dec 23, 2016 15:31
[2016-12-23] MEDS: ZOLPIDEM TARTRATE 10 MG TAB PO PRN (21:55)
[2016-12-23] MEDS ORDERED: DILTIAZEM INJ 125 MG in SODIUM CHLORIDE 0.9% INJ 100 ML IV SCH (23:00)
[2016-12-24] VITALS (26 sets, daily range): BP systolic 133–173; BP diastolic 70–93; PULSE 55–80; RESP 16–17; TEMP 97.9–98.1; O2SAT 96–99
[2016-12-24] MEDS: INSULIN ASPART SUPPLEMENTAL SCALE SQ SCH ×4 (06:07→22:02)
--- NOTE | 2016-12-24 08:16 | MB ---
cc: JADE FAUSTIN HANSCY M.D. DATE OF CONSULTATION 12/23/2016 REASON FOR CONSULTATION Atrial fibrillation, atrial tachyarrhythmia. Unable to control with medication. HISTORY OF PRESENT ILLNESS Mr. Chatman is an 80-year-old gentleman with history of atrial fibrillation, previous ablation, admitted due to atrial tachyarrhythmia possible atrial fibrillation with fast ventricular response. The patient on multiple medications. Heart rate unable to be controlled. I was consulted for further evaluation and management. The chart was reviewed. The patient was evaluated. ALLERGIES MORPHINE. SOCIAL HISTORY Negative for smoking and drinking. FAMILY HISTORY Noncontributory to his current medical condition. MEDICATIONS CURRENTLY 1. Cardizem. 2. Eliquis. 3. Lasix. 4. Albuterol inhaler. 5. Tamsulosin. 6. Ambien. REVIEW OF SYSTEMS The patient refers no chest pain, no chest discomfort. On and off palpitation. No vomiting. No fever. PHYSICAL EXAMINATION GENERAL: Alert, fully oriented. VITAL SIGNS: Blood pressure 144/77, pulse 77, respiratory rate 80. LUNGS: Ventilated. CARDIOVASCULAR: S1-S2, irregular. No gallop. ABDOMEN: Soft. No mass. Obese. EXTREMITIES: No edema. ELECTROCARDIOGRAM Apparently regular rhythm. ASSESSMENT AND RECOMMENDATIONS Mr. Chatman was admitted since last . He was having atrial fibrillation, atrial tachycardia with fast ventricular response. Heart rate very difficult to control. He is on and off in tachyarrhythmia. At this point my recommendation is re-do ablation because the gentleman's heart rate cannot be controlled with medication. The risks, the nature and the benefit of the procedure are clearly stated to him. The risks include pneumothorax, cardiac perforation, stroke and even . He understood and agreed to proceed. Procedure will be performed during this hospitalization. George Chacko MD HS/SSB /11:46 PM /8:09 AM
[2016-12-24] MEDS: FLUTICASONE PROPIONATE 50 MCG/ACT 16 GM NASAL SPRAY NASAL SCH ×2 (09:00→22:02)
[2016-12-24] MEDS: PANTOPRAZOLE SOD 40 MG DELAYED RELEASE TAB PO SCH (09:52)
[2016-12-24] MEDS: EZETIMIBE 10 MG TAB PO SCH (09:52)
[2016-12-24] MEDS: TAMSULOSIN HCL 0.4 MG CAP PO SCH (09:52)
[2016-12-24] MEDS: BENZONATATE 100 MG CAP PO SCH ×3 (09:52→18:05)
[2016-12-24] MEDS: FUROSEMIDE 20 MG TAB PO SCH ×2 (09:53→18:05)
[2016-12-24] MEDS: SODIUM CHLORIDE 0.9% FLUSH 10 ML FLUSH IV FLUSH SCH ×2 (09:53→22:02)
[2016-12-24] MEDS: predniSONE 10 MG TAB PO SCH (09:53)
--- NOTE | 2016-12-24 16:27 | HHI.PR ---
Subjective History of Present Illness I am ok No CP or SOB NO palpitations No N/V No fever or chills good appetite currently NPO for procedure Offers no other c/o is at bedside Review of Systems Constitutional Constitutional: Weakness (generalized) Pulmonary Respiratory: Coughing (occasional), Shortness of Breath (resolved) Psychiatric Psychiatric: Normal Mood Vitals/Results Intake & Output 12/23/16 12/23/16 12/24/16 15:00 23:00 07:00 Intake Total 295 ml 240 ml Output Total 1375 ml 700 ml Balance -1080 ml -460 ml Intake Oral 240 ml 240 ml IV Total 55 ml Output Urine Total 1375 ml 700 ml # Bowel Movements 1 Vital Signs Vital Signs Date Time Temp Pulse Resp B/P Pulse Ox O2 Delivery O2 Flow Rate FiO2 12/24/16 15:00 98.0 57 17 161/80 98 12/24/16 14:00 60 12/24/16 13:00 64 12/24/16 12:00 67 12/24/16 11:55 99 21 12/24/16 11:00 98.1 67 17 163/85 97 12/24/16 11:00 68 12/24/16 10:00 69 12/24/16 09:00 68 12/24/16 08:00 62 12/24/16 07:30 96 Room Air 12/24/16 07:00 80 12/24/16 07:00 98.0 65 17 167/93 96 12/24/16 06:00 57 12/24/16 05:00 58 12/24/16 04:00 98.0 56 16 164/86 98 12/24/16 04:00 56 12/24/16 03:00 58 12/24/16 02:00 58 12/24/16 01:00 60 12/24/16 00:00 62 12/24/16 00:00 97.9 55 16 173/70 98 12/23/16 23:00 58 12/23/16 22:00 62 12/23/16 21:00 62 12/23/16 20:00 98.0 57 16 134/73 98 12/23/16 20:00 61 12/23/16 19:15 98 Room Air 12/23/16 19:00 68 12/23/16 18:00 74 12/23/16 17:00 66 CBC/BMP: 12/23/16 0500 12/23/16 0500 Physical Exam General General Appearance: No Acute Distress, Comfortable, Pale (mild) Eyes Eye Exam: Pupils Equal, Sclera White Ears & Nose Ears & Nose Exam: Nasal Mucosa [place] Throat Throat Exam: Oral Mucosa [place] & Moist Neck Neck Exam: Neck Supple, Trachea Midline Pulmonary Resp Exam: Clear Bilaterally, Breath Sounds Equal Cardiology CV Exam: Regular, Normal Sinus Rhythm Gastrointestinal/Abdomen GI Exam: Soft, Non-Tender, Bowel Sounds Present Genitourinary Exam: Clear Urine Integumentary Skin Exam: Warm, Dry Extremeties Extremities Exam: No Edema, Pedal Pulses Palpable Neurologic Neuro Exam: Alert, Awake, Oriented, Speech Clear, Moving All Extremities Psychiatric Psych Exam: Appropriate Responses PUD Prophylasis PUD Prophylaxis: Protonix Assessment/Plan Assessment/Plan Diagnosis: (1) Atrial flutter with rapid ventricular response on admission, rate controlled today (2) Atrial fibrillation, CVR (3) HTN (hypertension) (4) DM (diabetes mellitus) (5) BRAN (obstructive sleep apnea) (6) Polymyalgia rheumatica (7) Cough , severe admission, improved (8) Renal insufficiency, follow indices 9. CHF Plan o2 IV cardizem Eliquis Dr Black input appreciated For EPS & ablation today keep NPO CHF well compensated Cough, SOB resolved, with Lasix Incentive spirometry Taper PO steroids for polymyalgia rheumatica Accuchecks AC/HS with ISS, Bowel regimen DVT prophylaxis on eliquis PUD prophylaxis with Protonix D/W RN D/W pt and will f/u Hakeem Rivera MD Dec 24, 2016 16:27
[2016-12-24] MEDS ORDERED: APIXABAN 5 MG TABLET PO SCH (21:00)
[2016-12-24] MEDS: ZOLPIDEM TARTRATE 10 MG TAB PO PRN (22:02)
--- NOTE | 2016-12-24 23:04 | HHI.PR ---
Subjective Remarks Tired Objective Vital Signs Date Time Temp Pulse Resp B/P Pulse Ox O2 Delivery O2 Flow Rate FiO2 12/24/16 21:37 96 21 12/24/16 20:49 96 Room Air 12/24/16 20:00 98.1 63 16 133/76 98 12/24/16 18:00 67 12/24/16 17:00 63 12/24/16 16:00 68 12/24/16 15:00 59 12/24/16 15:00 98.0 57 17 161/80 98 12/24/16 14:00 60 12/24/16 13:00 64 12/24/16 12:00 67 12/24/16 11:55 99 21 12/24/16 11:00 98.1 67 17 163/85 97 12/24/16 11:00 68 12/24/16 10:00 69 12/24/16 09:00 68 12/24/16 08:00 62 12/24/16 07:30 96 Room Air 12/24/16 07:00 80 12/24/16 07:00 98.0 65 17 167/93 96 12/24/16 06:00 57 12/24/16 05:00 58 12/24/16 04:00 98.0 56 16 164/86 98 12/24/16 04:00 56 12/24/16 03:00 58 12/24/16 02:00 58 12/24/16 01:00 60 12/24/16 00:00 62 12/24/16 00:00 97.9 55 16 173/70 98 I/O 12/23/16 12/23/16 12/23/16 12/24/16 12/24/16 12/24/16 07:00 15:00 23:00 07:00 15:00 23:00 Intake Total 1229 ml 295 ml 240 ml 120 ml Output Total 1250 ml 1375 ml 700 ml Balance -21 ml -1080 ml -460 ml 120 ml Intake Oral 480 ml 240 ml 240 ml 120 ml IV Total 749 ml 55 ml Output Urine Total 1250 ml 1375 ml 700 ml # Voids 4 # Bowel Movements 0 1 Result Diagram: 12/23/16 0500 12/23/16 0500 Imaging Alert, fully oriented Lungs: ventilated Heart: S1, S2 regular, no gallop Abdomen: soft, no mass Ext : no edema Last Impressions Chest X-Ray 12/22/16 0000 Signed Impressions: Service Date/Time: Thursday, December 22, 2016 11:43 - CONCLUSION: Suspected minimal atelectasis at the bases. Derek Abdul MD Current Medications Medications (Trade) Dose Ordered Sig/Dorota Route Start Time Stop Time Status Last Admin (Zetia) 10 mg DAILY PO 12/20/16 09:00 12/24/16 09:52 (Ambien) 10 mg HS PRN PO 12/19/16 14:15 12/24/16 22:02 (Protonix) 40 mg DAILY PO 12/20/16 09:00 12/24/16 09:52 (Flomax) 0.4 mg DAILY PO 12/20/16 09:00 12/24/16 09:52 (D50w (Vial) Inj) 25 ml UNSCH PRN IV PUSH 12/19/16 14:15 (Glucagon Inj) 1 mg UNSCH PRN OTHER 12/19/16 14:15 (NS Flush) 2 ml UNSCH PRN IV FLUSH 12/19/16 14:15 (NS Flush) 2 ml BID IV FLUSH 12/19/16 21:00 12/24/16 22:02 (Zofran Inj) 4 mg Q6H PRN IVP 12/19/16 14:15 (Narcan Inj) 0.4 mg UNSCH PRN IV 12/19/16 14:15 (Robitussin Ac 200-20 Mg/10 ml Liq) 10 ml Q4H PRN PO 12/20/16 14:00 12/22/16 17:36 (Tessalon) 200 mg TID PO 12/22/16 18:00 12/24/16 18:05 (Flonase Hernan Spr) 1 spray BID NASAL 12/22/16 21:00 12/24/16 22:02 (Lasix) 20 mg BID@09,18 PO 12/22/16 18:00 12/24/16 18:05 Apixaban 5 mg 5 mg BID PO 12/24/16 21:00 (Cardizem Inj/NS Inj) 125 ml @ 0 mls/hr TITRATE IV 12/23/16 23:00 Hold (Deltasone) 20 mg DAILY PO 12/25/16 09:00 Assessment and Plan Problem List: (1) Atrial fibrillation Status: Acute Plan: On/off atrial tach/ atrial fibrillation. EPS and ablation will be performed in AM Case extensively discussed with p[atient (2) Atrial flutter with rapid ventricular response Status: Acute Plan: Possible left atrial tach Problem Qualifiers (1) Atrial fibrillation: Qualified Code: I48.91 - Atrial fibrillation, unspecified type George Chacko MD Dec 24, 2016 23:04
[2016-12-25] VITALS (22 sets, daily range): BP systolic 137–164; BP diastolic 63–83; PULSE 54–66; RESP 16–18; TEMP 97.1–98.2; O2SAT 96–99
[2016-12-25] MEDS: INSULIN ASPART SUPPLEMENTAL SCALE SQ SCH ×4 (03:38→21:01)
[2016-12-25] MEDS ORDERED: LEVOFLOXACIN 500 MG PREMIX INJ 100 ML IV ONE (06:53)
[2016-12-25] MEDS ORDERED: HEPARIN-NS/PF INJ 500 ML ONE (06:53)
[2016-12-25] MEDS ORDERED: HEPARIN SODIUM - IV 10,000 UNITS/10 ML VIAL ONE ×2 (07:07→08:03)
[2016-12-25] MEDS ORDERED: ISOPROTERENOL HCL 1 MG/5 ML AMP ONE (07:07)
[2016-12-25] MEDS ORDERED: FUROSEMIDE 40 MG/4 ML VIAL ONE (07:07)
[2016-12-25] MEDS ORDERED: PROTAMINE SULFATE 50 MG/5 ML VIAL ONE (07:07)
[2016-12-25] MEDS ORDERED: METOCLOPRAMIDE HCL 10 MG/2 ML VIAL IV PRN (08:45)
[2016-12-25] MEDS ORDERED: ONDANSETRON HCL 4 MG/2 ML VIAL IV PRN (08:45)
[2016-12-25] MEDS ORDERED: BACITRACIN OINT 0.9 GM PKT TOP ONE (08:45)
[2016-12-25] MEDS ORDERED: oxyCODONE/ACETAMINOPHEN 5 MG/325 MG TAB PO PRN ×2 (08:45)
[2016-12-25] MEDS ORDERED: ATROPINE SULFATE 1 MG/ML VIAL IV PRN (08:45)
[2016-12-25] MEDS ORDERED: LORazepam 2 MG/ML VIAL IV PRN (08:45)
[2016-12-25] MEDS ORDERED: LIDOCAINE HCL 1% 50 ML VIAL INFIL PRN (08:45)
[2016-12-25] MEDS ORDERED: SODIUM CHLOR 0.9% 250 ML INJ 250 ML IV PRN (08:45)
[2016-12-25] MEDS ORDERED: fentaNYL CITRATE 250 MCG/5 ML AMP ONE (09:09)
[2016-12-25] MEDS: BENZONATATE 100 MG CAP PO SCH ×3 (09:59→17:31)
[2016-12-25] MEDS: PANTOPRAZOLE SOD 40 MG DELAYED RELEASE TAB PO SCH (09:59)
[2016-12-25] MEDS: SODIUM CHLORIDE 0.9% FLUSH 10 ML FLUSH IV FLUSH SCH ×2 (09:59→20:53)
[2016-12-25] MEDS: FUROSEMIDE 20 MG TAB PO SCH ×2 (09:59→17:32)
[2016-12-25] MEDS: TAMSULOSIN HCL 0.4 MG CAP PO SCH (09:59)
[2016-12-25] MEDS: EZETIMIBE 10 MG TAB PO SCH (10:00)
[2016-12-25] MEDS: FLUTICASONE PROPIONATE 50 MCG/ACT 16 GM NASAL SPRAY NASAL SCH ×2 (10:00→20:53)
[2016-12-25] MEDS ORDERED: DO NOT ADM ANY ANTICOAGULANT DRUGS PRN (10:00)
[2016-12-25] MEDS: predniSONE 20 MG TAB PO SCH (10:00)
[2016-12-25] MEDS: APIXABAN 5 MG TABLET PO SCH ×2 (12:03→20:52)
[2016-12-25] MEDS ORDERED: PROPOFOL 200 MG/20 ML AMP OTHER ONE (12:14)
[2016-12-25] MEDS ORDERED: SODIUM CHLORID 0.9% 500 ML BAG IV ONE (12:14)
--- NOTE | 2016-12-25 14:57 | HHI.PR ---
Subjective Subjective Remarks Resting in bed Alert, oriented, Bowel regimen, BM today No chest pain afebrile (Snehal Sanz) Review of Systems Constitutional Constitutional: Weakness (generalized) Constitutional Remarks 10 point ROS done, anxiety mild, no shortness of breath, resolved, bowel regimen , occasional cough other systems negative or unremarkable (Snehal Sanz ) Pulmonary Respiratory: Coughing (occasional), Shortness of Breath (resolved) (Snehal Sanz) Psychiatric Psychiatric: Normal Mood (Snehal Sanz) Vitals/Results Intake & Output 12/24/16 12/24/16 12/25/16 15:00 23:00 07:00 Intake Total 120 ml 360 ml Balance 120 ml 360 ml Intake Oral 120 ml 360 ml # Voids 4 3 # Bowel Movements 1 Vital Signs Vital Signs Date Time Temp Pulse Resp B/P Pulse Ox O2 Delivery O2 Flow Rate FiO2 12/25/16 14:18 65 12/25/16 13:00 60 12/25/16 12:00 60 12/25/16 11:18 97 21 12/25/16 11:00 Nasal Cannula 2.00 12/25/16 11:00 98.0 63 18 156/68 99 12/25/16 11:00 64 12/25/16 10:00 64 12/25/16 09:50 98.6 61 16 176/77 100 Nasal Cannula 2 12/25/16 09:45 62 16 165/75 100 Nasal Cannula 2 12/25/16 09:30 62 16 171/83 100 Nasal Cannula 2 12/25/16 09:15 61 16 161/70 100 Nasal Cannula 2 12/25/16 09:02 97.4 65 16 166/84 100 Nasal Cannula 2 12/25/16 06:00 56 12/25/16 05:00 62 12/25/16 04:00 98.1 55 16 164/79 96 12/25/16 04:00 54 12/25/16 03:00 56 12/25/16 02:00 54 12/25/16 01:00 56 12/25/16 00:00 54 12/25/16 00:00 97.9 54 16 137/68 98 12/24/16 23:00 56 12/24/16 22:00 62 12/24/16 21:37 96 21 12/24/16 21:00 62 12/24/16 20:49 96 Room Air 12/24/16 20:00 68 12/24/16 20:00 98.1 63 16 133/76 98 12/24/16 19:00 68 12/24/16 18:00 67 12/24/16 17:00 63 12/24/16 16:00 68 12/24/16 15:00 59 12/24/16 15:00 98.0 57 17 161/80 98 (Snehal Sanz [employer]. [employer]) CBC/BMP: 12/23/16 0500 12/23/16 0500 Imaging Remarks Last Impressions Chest X-Ray 12/22/16 0000 Signed Impressions: Service Date/Time: Thursday, December 22, 2016 11:43 - CONCLUSION: Suspected minimal atelectasis at the bases. Derek Abdul MD (Snehal Sanz M. [employer]) Physical Exam General General Appearance: No Acute Distress, Comfortable, Pale (mild) ([place] M. [employer]) Eyes Eye Exam: Pupils Equal, Sclera [place] ([place],Susan M. [employer]) Ears & Nose Ears & Nose Exam: Nasal Mucosa [place] ([place],Snehal M. [employer]) Throat Throat Exam: Oral Mucosa [place] & Moist ([place],Snehal M. [employer]) Neck Neck Exam: Neck Supple, Trachea Midline ([place],Snehal M. [employer]) Pulmonary Resp Exam: Clear Bilaterally, Breath Sounds Equal ([place],Snehal M. [employer]) Cardiology CV Exam: Regular, Normal Sinus Rhythm ([place],Snehal M. [employer]) Gastrointestinal/Abdomen GI Exam: Soft, Non-Tender, Bowel Sounds Present ([place],Snehal M. [employer]) Genitourinary Exam: Clear Urine ([place],Snehal M. [employer]) Integumentary Skin Exam: Warm, Dry ([place],Snehal M. [employer]) Extremeties Extremities Exam: No Edema, Pedal Pulses Palpable ([place],Snehal M. [employer]) Neurologic Neuro Exam: Alert, Awake, Oriented, Speech Clear, Moving All Extremities ( [place] M. [employer]) Psychiatric Psych Exam: Appropriate Responses (Snehal Sanz) PUD Prophylasis PUD Prophylaxis: Protonix (Snehal Sanz) Assessment/Plan Assessment/Plan Diagnosis: (1) Atrial flutter with rapid ventricular response on admission, rate controlled today (2) Atrial fibrillation, CVR (3) HTN (hypertension) (4) DM (diabetes mellitus) (5) BRAN (obstructive sleep apnea) (6) Polymyalgia rheumatica (7) Cough , severe admission, improved (8) Renal insufficiency, follow indices 9. CHF Plan vitals reviewed, normal trends, afebrile labs reviewed, Leukocytosis and hyperglycemia elevation probable secondary to by mouth steroids Anemia, probable secondary to chronic disease, stable will monitor Acute kidney injury , mild increase, ck in am ablation today, sucessful telemetry Appreciate cardiology consult, continue Eliquis, rhythm regular increase activity, OOB CHF, controlled, compensated Cough, SOB resolved, with Lasix and diuresis Incentive spirometry continue PO steroids for polymyalgia rheumatica Accuchecks AC/HS with ISS, Bowel regimen, BM daily DVT prophylaxis on eliquis PUD prophylaxis with Protonix check labs in am (Snehal Sanz) Assessment/Plan pt is seen & examined d/w PT d/w Snehal osuna w above cont current tx Possible d.c home in am (Hakeem Rivera MD) Snehal Sanz Dec 25, 2016 14:56 Hakeem Rivera MD Dec 25, 2016 15:45
--- NOTE | 2016-12-25 20:03 | EKG ---
Date Performed: 12/25/2016 Time Performed: 09:26:44 PTAGE: 81 years EKG: SINUS BRADYCARDIA BORDERLINE ECG Compared with prior study, the patient is now bradycardic PREVIOUS TRACING : 12/19/2016 12.03 DOCTOR: Kristen Oro Interpretating Date/Time 12/25/2016 20:02:27
[2016-12-25] MEDS: ZOLPIDEM TARTRATE 10 MG TAB PO PRN (20:52)
[2016-12-26] VITALS (12 sets, daily range): BP systolic 132–156; BP diastolic 77–78; PULSE 55–85; RESP 18; TEMP 97.8–98.5; O2SAT 97–98
[2016-12-26] MEDS: INSULIN ASPART SUPPLEMENTAL SCALE SQ SCH ×2 (06:10→11:00)
[2016-12-26 06:15] LABS: HEMATOCRIT 44.9 % (39.0-51.0); MEAN CELL VOLUME 93.8 FL (80.0-100.0); MEAN CORPUSCULAR HEMOGLOBIN 32.3 PG (27.0-34.0); MEAN CORPUSCULAR HGB CONC 34.5 % (32.0-36.0); PLATELET COUNT 141 TH/MM3 (150-450); RED BLOOD COUNT 4.79 MIL/MM3 (4.50-5.90); RED CELL DISTRIBUTION WIDTH 13.7 % (11.6-17.2); REVIEW FLAG FINAL; WHITE BLOOD COUNT 9.3 TH/MM3 (4.0-11.0)
[2016-12-26 06:26] LABS: APTT (PATIENT) 23.3 SEC (24.3-30.1)
[2016-12-26 06:55] LABS: BICARBONATE 29.8 MEQ/L (21.0-32.0); POTASSIUM 3.6 MEQ/L (3.5-5.1)
[2016-12-26] MEDS: BENZONATATE 100 MG CAP PO SCH (08:51)
[2016-12-26] MEDS: SODIUM CHLORIDE 0.9% FLUSH 10 ML FLUSH IV FLUSH SCH (08:51)
[2016-12-26] MEDS: predniSONE 20 MG TAB PO SCH (08:52)
[2016-12-26] MEDS: APIXABAN 5 MG TABLET PO SCH (08:52)
[2016-12-26] MEDS: TAMSULOSIN HCL 0.4 MG CAP PO SCH (08:52)
[2016-12-26] MEDS: FUROSEMIDE 20 MG TAB PO SCH (08:52)
[2016-12-26] MEDS: EZETIMIBE 10 MG TAB PO SCH (08:52)
[2016-12-26] MEDS: PANTOPRAZOLE SOD 40 MG DELAYED RELEASE TAB PO SCH (08:52)
[2016-12-26] MEDS: FLUTICASONE PROPIONATE 50 MCG/ACT 16 GM NASAL SPRAY NASAL SCH (08:53)
--- NOTE | 2016-12-26 10:13 | HHI.PR ---
Subjective Remarks s/p ablation 12/25 tele SR no cp no sob anxious to go home no cough no fever Objective Objective Results - Vital Signs Date Time Temp Pulse Resp B/P Pulse Ox O2 Delivery O2 Flow Rate FiO2 12/26/16 09:00 97 12/26/16 08:00 85 12/26/16 07:00 68 12/26/16 06:26 58 12/26/16 05:00 56 12/26/16 04:33 66 12/26/16 03:36 97.8 55 132/77 98 12/26/16 03:00 61 12/26/16 02:00 58 12/26/16 01:00 58 12/26/16 00:00 64 12/25/16 23:00 57 12/25/16 23:00 97.1 57 139/75 97 12/25/16 22:00 56 12/25/16 21:00 64 12/25/16 20:00 64 12/25/16 20:00 96 21 12/25/16 19:00 64 12/25/16 19:00 Nasal Cannula 2.00 21 12/25/16 19:00 98.0 63 150/83 96 12/25/16 18:00 66 12/25/16 17:03 62 12/25/16 16:57 64 12/25/16 15:00 61 12/25/16 15:00 98.2 62 16 137/63 97 12/25/16 14:18 65 12/25/16 13:00 60 12/25/16 12:00 60 12/25/16 11:18 97 21 12/25/16 11:00 Nasal Cannula 2.00 12/25/16 11:00 98.0 63 18 156/68 99 12/25/16 11:00 64 I/O 12/25/16 12/25/16 12/25/16 12/26/16 12/26/16 12/26/16 07:00 15:00 23:00 07:00 15:00 23:00 Intake Total 360 ml 820 ml 480 ml 240 ml Output Total 275 ml 700 ml 550 ml Balance 360 ml 545 ml -220 ml -310 ml Intake Oral 360 ml 480 ml 240 ml IV Total 20 ml Other 800 ml Output Urine Total 250 ml 700 ml 550 ml Estimated Blood Loss 25 ml # Voids 3 # Bowel Movements 1 Result Diagram: 12/26/16 0553 12/26/16 0553 Imaging Last Impressions Chest X-Ray 12/19/16 1256 Signed Impressions: Service Date/Time: November 13:17 - CONCLUSION: Minimal left basilar atelectasis. Degenerative changes and mild scoliosis of the thoracic spine. Nilo Neely MD Other Results Laboratory Tests Test 12/26/16 05:53 White Blood Count 9.3 Red Blood Count 4.79 Hemoglobin 15.5 Hematocrit 44.9 Mean Corpuscular Volume 93.8 Mean Corpuscular Hemoglobin 32.3 Mean Corpuscular Hemoglobin 34.5 Concent Red Cell Distribution Width 13.7 Platelet Count 141 Mean Platelet Volume 8.5 Prothrombin Time 11.0 Prothromb Time International 1.0 Ratio Activated Partial 23.3 Thromboplast Time Sodium Level 139 Potassium Level 3.6 Chloride Level 100 Carbon Dioxide Level 29.8 Anion Gap 9 Blood Urea Nitrogen 32 Creatinine 1.61 Estimat Glomerular Filtration 41 Rate Random Glucose 138 Calcium Level 9.0 ROS General: No: Fatigue, Weakness HEENT: No: Sore Throat, Dysphagia Cardiac: No: Chest Pain, Edema, Palpitations Pulmonary: No: Cough, SOB, Wheezing GI: No: Abdominal Pain, BM, Diarrhea, N/V /BUNDLE BREAKER: No: Dysuria, Urgency Neuro/MS: No: Lightheaded, Confusion Psych: No: Anxiety, Depression Skin: No: Itching, Rash Physical Exam Physical Exam GENERAL: This is a well-nourished, well-developed patient, in no apparent distress. SKIN: No rashes, ecchymoses or lesions. Cool and dry. HEAD: Atraumatic. Normocephalic. No temporal or scalp tenderness. EYES: left Pupil dilated and not reactive, right pupil round and reactive. Extraocular motions intact. No scleral icterus. No injection or drainage. Bilateral ptosis ENT: Nose without bleeding, purulent drainage or septal hematoma. Throat without erythema, tonsillar hypertrophy or exudate. Uvula midline. Airway patent. NECK: Trachea midline. No JVD or lymphadenopathy. Supple, nontender, no meningeal signs. CARDIOVASCULAR: S1, S2, no rubs, murmurs, gallops RESPIRATORY: Clear to auscultation. Breath sounds equal bilaterally. No wheezes , rales, or rhonchi. GASTROINTESTINAL: Abdomen soft, non-tender, nondistended. No hepato-splenomegaly , or palpable masses. No guarding. MUSCULOSKELETAL: Extremities without clubbing, cyanosis, or edema. No joint tenderness, effusion, or edema noted. No calf tenderness. Negative Homans sign bilaterally. NEUROLOGICAL: Awake and alert. Cranial nerves II through XII intact. Motor and sensory grossly within normal limits. 4 out of 5 muscle strength in all muscle groups. Normal speech. Urinary Catheter: No Vascular Central Line Catheter: No A/P Diagnosis: (1) Atrial flutter with rapid ventricular response (2) Atrial fibrillation (3) HTN (hypertension) (4) DM (diabetes mellitus) (5) BRAN (obstructive sleep apnea) (6) Polymyalgia rheumatica (7) Cough (8) Renal insufficiency Assessment and Plan S/P ablation 12/25 SR on monitor, no more afib with RVR off Cardizem drip appreciate Dr. Chacko's input continue Eliquis cough, poss. CHF, on Lasix, antitussives PRN stop Lasix, creat elevated Cough improved continue PO steroids for MD Accuchecks AC/HS with ISS Renal insufficiency-creat increasing stop Laxis Continue Eliquis for DVT prophylaxis WBC improving labs reviewed poss dc today after Dr. Ricco carver can do BMP as OP D/W RN D/W Dr. Rivera D/W pt This patient was seen by myself and Dr. Rivera, this note is written on his behalf. Problem Qualifiers (1) Atrial fibrillation: Qualified Code: I48.91 - Atrial fibrillation, unspecified type (2) HTN (hypertension): Qualified Code: I10 - Essential hypertension (3) DM (diabetes mellitus): Lisa Candelaria [facility] Dec 26, 2016 10:13
[2016-12-26] MEDS ORDERED: PRED20 PO (10:14)
--- NOTE | 2016-12-26 10:15 | HHI.DCPOC ---
Discharge Care Plan Diagnosis: (1) Atrial fibrillation (2) Polymyalgia rheumatica Your Health Problems Are: Anxiety Chest Pain Shortness of Breath Goals to Promote Your Health * To prevent worsening of your condition and complications * To maintain your health at the optimal level Directions to Meet Your Goals Take your medications as prescribed Follow your dietary instruction Follow activity as directed Keep your appointments as scheduled Take your immunizations and boosters as scheduled If your symptoms worsen call your PCP, if no PCP go to Urgent Care Center or Emergency Room Smoking is Dangerous to Your Health. Avoid second hand smoke Call the 24-hour hour crisis hotline for domestic abuse at [facility]. [facility] Dec 26, 2016 10:15
--- NOTE | 2016-12-26 13:55 | EKG ---
Date Performed: 12/26/2016 Time Performed: 06:48:16 PTAGE: 81 years EKG: Sinus rhythm Normal ECG Compared to prior tracing no significant change PREVIOUS TRACING : 12/25/2016 09.26 DOCTOR: Dimitri Carbajal Interpretating Date/Time 12/26/2016 13:54:58
--- NOTE | 2016-12-27 15:53 | HHI.DS ---
Discharge Summary Admission Date Dec 19, 2016 at 14:15 Discharge Date: Dec 26, 2016 Admitting Diagnosis Aflutter with RVR (1) Atrial flutter with rapid ventricular response (2) Atrial fibrillation (3) HTN (hypertension) (4) DM (diabetes mellitus) (5) BRAN (obstructive sleep apnea) (6) Polymyalgia rheumatica (7) Cough (8) Renal insufficiency Procedures S/P ablation 12/25 CBC/BMP: 12/26/16 0553 12/26/16 0553 Significant Findings Laboratory Tests Test 12/26/16 05:53 Platelet Count 141 TH/MM3 (150-450) Activated Partial 23.3 SEC Thromboplast Time (24.3-30.1) Blood Urea Nitrogen 32 MG/DL (7-18) Creatinine 1.61 MG/DL (0.60-1.30) Estimat Glomerular Filtration 41 ML/MIN (>89) Rate Random Glucose 138 MG/DL (74-106) Imaging Last Impressions Chest X-Ray 12/22/16 0000 Signed Impressions: Service Date/Time: Thursday, December 22, 2016 11:43 - CONCLUSION: Suspected minimal atelectasis at the bases. Derek Abdul MD Hospital Course This is a very pleasant 61-year-old male who had been coughing for a few days. He went to see his primary physician Dr. Johnson and was found to be tachycardic with a heart rate between 140 to 180 therefore he was referred to the emergency department. The patient was found to be tachycardic as above and received 6 mg of Adenosine intravenously followed by another 12 mg. Subsequently once his rate came down it was obvious that he was in atrial flutter. He received 2 doses of 10 mg IV Cardizem each followed by intravenous Cardizem drip. The patient was alert and oriented and denied complaints other than his cough during this examination. A recent echocardiogram showed preserved left ventricular function. He has a history of atrial fibrillation for which he had ablation done by Dr. Chacko. His regular rework operator is Dr. Torres. He denied any chest pain no fever chills or diaphoresis. No abdominal pain. No focal weakness or numbness. He does have however a chronic problem with polymyalgia rheumatica and has been unable to discontinue prednisone after over a decade of using it. He sees neurologist Dr. Hayden. He recently had temporal artery biopsies. He has chronic bilateral ptosis. He has chronically dilated left pupil. Pt. evaluated in the ED. Was noted with renal insufficiency. CBC stable. CXR with no significant findings. Pt. was admitted for further evaluation. (1) Atrial flutter with rapid ventricular response (2) Atrial fibrillation (3) HTN (hypertension) (4) DM (diabetes mellitus) (5) BRAN (obstructive sleep apnea) (6) Polymyalgia rheumatica (7) Cough (8) Renal insufficiency During the course of the hospitalization, the following took place: Pt. admitted to [facility], continued on Cardizem gtt. Cardiology consulted HR remained uncontrolled on Cardizem, cardiology changed to Amidarone gtt. Dr. Torres recommended consult with Dr. Chacko for ablation. S/P ablation 12/25 after procedure, pt. in SR. Drip discontinued. Continued Eliquis Had persistent cough Antitussives PRN cordered. CXR reordered. minimal atelectasis. Was thought poss. CHF, given Lasix-cough improved. Put on Lasix scheduled Later Lasix stopped, when creat bumped up. Cough improved, he had no more. No SOB, no sputum, no fever For polymyalgia rheumatic, continued on PO steroids. Dose decreased to 20 mg po daily. Was put on Accuchecks AC/HS with ISS Renal insufficiency, improved, then creat inc. Lasix stopped. Was given lab slip for BMP as OP Continue Eliquis for DVT prophylaxis Pt. improved, no more afib. Cleared for discharge Pt. discharged home in stable condition F/U Dr. Torres, Dr. Chacko Diet-heart healthy Activity-as tolerated Do BMP as OP with results to PCP Pt Condition on Discharge: Stable Discharge Disposition: Discharge Home Discharge Instructions DIET: Follow Instructions for: Heart Healthy Diet Fluid Restrictions: none Activities you can perform: Regular-No Restrictions Follow up Referrals: Cardiology with George Chacko MD PCP Follow-up - 1 Week New Medications: Prednisone (Prednisone) 20 Mg Tab 20 MG PO DAILY Inflammation #30 Ref 0 TAB Continued Medications: Apixaban (Eliquis) 5 Mg Tab 5 MG PO BID blood thining #[address] (Nexium) 40 Mg Capdr 40 MG PO DAILY Ref 0 CAP Ezetimibe (Zetia) 10 Mg Tab 10 MG PO DAILY #30 Ref 0 TAB Glimepiride (Glimepiride) 1 Mg Tab 1 MG PO DAILY Take with breakfast or first main meal Blood Sugar Management Ref 0 TAB Silodosin (Rapaflo) 8 Mg Cap 8 MG PO DAILY Manage Prostate Problems #30 Ref 0 CAP Zolpidem (Ambien) 10 Mg Tab 10 MG PO HS PRN INSOMNIA Ref 0 TAB Discontinued Medications: Prednisone (Prednisone) 10 Mg Tab 30 MG PO DAILY Ref 0 TAB [facility] Dec 27, 2016 15:53
--- NOTE | 2017-01-04 17:32 | ETE ---
Study Study Date:12/25/2016 STUDY CONCLUSIONS SUMMARY - Left ventricle: The cavity size was normal. Wall thickness was normal. Systolic function was normal. The estimated ejection fraction was in the range of 55% to 60%. Wall motion was normal; there were no regional wall motion abnormalities. - Aortic valve: No evidence of vegetation. - Mitral valve: No evidence of vegetation. - Left atrium: The atrium was mildly dilated. No evidence of thrombus in the atrial cavity or appendage. No evidence of thrombus in the atrial cavity or appendage. - Right atrium: No evidence of thrombus in the atrial cavity or appendage. - Atrial septum: No defect or patent foramen ovale was identified. Echo contrast study showed no [id number] atrial level shunt, at baseline or with provocation. - Tricuspid valve: No evidence of vegetation. - Pulmonic valve: No evidence of vegetation. If LV function is below 40, please consider prescribing an ACEI or ARB or document rationale for non-use. PROCEDURE DATA Consent: The risks, benefits, and alternatives to the procedure were explained to the patient and informed consent was obtained. Procedure: Initial setup. The patient was brought to the laboratory in the fasting state. Intravenous access was obtained. Surface ECG leads and pulse oximetric signals were monitored. Sedation. Conscious sedation was administered by cardiology staff. Transesophageal echocardiography. Topical anesthesia was obtained using viscous lidocaine. A transesophageal probe was inserted by the attending business administration program chair. Image quality was good. Study completion: All IVs inserted during the procedure were removed. The patient tolerated the procedure well. There were no complications. Transesophageal echocardiography. 2D, complete spectral Doppler, and color Doppler. CARDIAC ANATOMY LEFT VENTRICLE: The cavity size was normal. Wall thickness was normal. Systolic function was normal. The estimated ejection fraction was in the range of 55% to 60%. Wall motion was normal; there were no regional wall motion abnormalities. AORTIC VALVE: Trileaflet; mildly thickened, mildly calcified leaflets. Cusp separation was normal. No evidence of vegetation. Doppler: No significant regurgitation. Aorta: - There was no atheroma. There was no evidence for dissection. Aortic root: The aortic root was not dilated. Ascending aorta: The ascending aorta was normal in size. Aortic arch: The aortic arch was normal in size. Descending aorta: The descending aorta was normal in size. MITRAL VALVE: Structurally normal valve. Leaflet separation was normal. No evidence of vegetation. Doppler: Trace regurgitation. LEFT ATRIUM: The atrium was mildly dilated. No evidence of thrombus in the atrial cavity or appendage. No evidence of thrombus in the atrial cavity or appendage. The appendage was morphologically a left appendage, multilobulated, and of normal size. Emptying velocity was normal. ATRIAL SEPTUM: No defect or patent foramen ovale was identified. Echo contrast study showed no [id number] atrial level shunt, at baseline or with provocation. RIGHT VENTRICLE: The cavity size was normal. Wall thickness was normal. Systolic function was normal. PULMONIC VALVE: Structurally normal valve. No evidence of vegetation. TRICUSPID VALVE: Structurally normal valve. Leaflet separation was normal. No evidence of vegetation. Doppler: No significant regurgitation. PULMONARY ARTERY: The main pulmonary artery was normal-sized. RIGHT ATRIUM: The atrium was normal in size. No evidence of thrombus in the atrial cavity or appendage. The appendage was morphologically a right appendage. PERICARDIUM: There was no pericardial effusion. Prepared and signed by George Chacko [id number]
--- NOTE | 2017-01-06 06:46 | PD.CARD ---
Atrial Fibrillation Ablation PROCEDURE DATE: Dec 25, 2016 PROCEDURES PERFORMED: 1. Electrophysiology study on Isuprel infusion 2. CS cannulation 3. 3-D mapping 4. Transseptal approach 5. Right and left heart catheterization 6. Intracardiac echo 7. Radiofrequency ablation of atrial fibrillation 8. Pulmonary vein isolation 9. Posterior wall ablation 10. Mitral line creation 11. Roof line creation 12. Floor line creation 13. Anterior wall ablation INDICATIONS FOR THE PROCEDURE Mr. Chatman is a 81-year-old male with atrial fibrillation very difficult to control with medication, previous ablation referred for electrophysiology study and ablation. The patient is symptomatic and on anticoagulation. The risks, the nature and the benefits of the procedure were clearly stated to him. The risks include pneumothorax, cardiac perforation, stroke, need for open heart surgery and even . The patient understood and agreed to proceed. DESCRIPTION OF THE PROCEDURE IN DETAIL As written informed consent was obtained prior to esophageal echocardiogram, the patient was kept on the table where he was prepped and draped in the usual sterile fashion. Conscious sedation was initiated and maintained throughout the procedure by the anesthesiologist. Once sedation was verified, the right and left inguinal areas were anesthetized with 2% Xylocaine. Using modified Seldinger technique, the left femoral vein was cannulated on three occasions, three guidewires were advanced. Over the wire a 6, 7 and a 10-Swiss Hemaquet were advanced. Then the left femoral artery was cannulated on one occasion, one guidewire was advanced. Over the wire a 4-Swiss Hemaquet was advanced. Then the right femoral vein was cannulated on one occasion, one guidewire was advanced. Over the wire a 8-Swiss Hemaquet was advanced. Then under fluoroscopic guidance through the 6 and 7-Swiss Hemaquet, two 5-Swiss Chrissy curved quadripolar electrophysiology catheters were advanced and placed around the His as well as coronary sinus. Basic interval was measured. The patient converted into sinus rhythm. Through the 10-Swiss Hemaquet, a CordQuickProNotester AcuNav intracardiac echo catheter was advanced and placed at the right atrium. Multiple view was obtained. There is no pericardial effusion, pulmonary vein was seen, atrial septal was visualized. Then the 8-Swiss Hemaquet in the right femoral vein was exchanged for Agilis transseptal sheath that was placed all the way to the superior vena cava. Through the sheath a Matt needle was advanced, then the sheath, the dilator and the needle were progressed until foci engaged. Once engaged, the needle was advanced. RF was delivered for 2 seconds. I was able to cross into the left atrium. Once the needle crossed, the dilator was advanced. Once the dilator crossed, the sheath was advanced. Once the sheath crossed, the dilator and the needle were removed. At this point I did flood the system and fluid movement was seen in the left atrium the indicates the sheath is in good position. The patient already received 10,000 units of heparin. The goal is to keep an ACT around 350 during ablation. Then through the sheath a St. Damien 20 pulse circumferential catheter was advanced. Using SOHM endocardial solution mapping system, a two-dimensional configuration of the left atrium was obtained. Points were taken at the left superior and inferior veins, right superior and inferior veins, mitral valve, and appendages. Then through the sheath a St. Damien TactiCath 65cm 3.5mm irrigated tipped mapping and radiofrequency ablation catheter was advanced. Esophageal probe was placed temperature monitoring during ablation. When it increased to 0.5 degrees Celsius above baseline, I moved to a different area of the atrium. First I did isolate the left superior and inferior vein. . Posterior was ablated. Then a roof line was created, a floor line was created, a mitral line was isolated, then the mitral valve was isolated. Then the right superior and inferior veins were isolated. I did remap the atrium. There is no significant signal in the atrium. At that point I did advance the circumferential catheter again into the vein. There was no signal into the vein, pacing from the vein showed no conduction to the atrium. Isuprel infusion was initiated at 10 mcg for 15 minutes. No tachyarrhythmia was induced, post Isuprel no tachyarrhythmia was induced. At that point the procedure was complete. All catheters were removed, atrial septal sheath was exchanged for 9-Swiss Hemaquet, intracardiac echo showed no pericardial effusion. There is still good flow in the pulmonary vein. The patient is going to be transferred to the recovery room. No incident report. The patient tolerated the procedure. Blood loss was minimal. FINDINGS 1. Electrocardiogram: At baseline the patient was in sinus, post procedure the electrocardiogram was unchanged. 2. Basic interval: Base cycle length was around 980. AH at 70 and HV at 50 milliseconds. 3. Tachyarrhythmia: Atrial fibrillation was mapped and ablated. The ablation was successful. CONCLUSION Successful electrophysiology study, mapping, radiofrequency ablation of atrial fibrillation, left atrial tachycardia, pulmonary vein isolation, posterior ablation, mitral line creation, roof line creation, floor line creation. COMMENTS AND RECOMMENDATIONS The patient is going to be transferred to the telemetry unit. Will be observed and when stable can be discharged home. George Chacko MD January 06, 2017 06:46
== END 2016-12-26 11:52 | disposition home or self-care (01) | DRG 274 ==
LOC: NEPC 11:36 → NEDA 14:15 → HCIS 17:20
PROVIDERS: ADMIT Specialist; ATTEND Specialist
PROC: 02583ZZ Destruction of Conduction Mechanism, Percutaneous Approach (ICD-10-PCS; 2016-12-25)
PROC: 4A0234Z Measurement of Cardiac Electrical Activity, Percutaneous Approach (ICD-10-PCS; 2016-12-25)
PROC: 02K83ZZ Map Conduction Mechanism, Percutaneous Approach (ICD-10-PCS; 2016-12-25)
PROC: 4A023FZ Measurement of Cardiac Rhythm, Percutaneous Approach (ICD-10-PCS; principal; 2016-12-25 07:30)
DX: I48.92 Unspecified atrial flutter (principal); N17.9 Acute kidney failure, unspecified; E11.65 Type 2 diabetes mellitus with hyperglycemia; I49.5 Sick sinus syndrome; M41.9 Scoliosis, unspecified; I50.9 Heart failure, unspecified; I11.0 Hypertensive heart disease with heart failure; J98.11 Atelectasis; I47.1 Supraventricular tachycardia; I48.0 Paroxysmal atrial fibrillation; E86.0 Dehydration; M35.3 Polymyalgia rheumatica; E78.5 Hyperlipidemia, unspecified; G47.33 Obstructive sleep apnea (adult) (pediatric); K21.9 Gastro-esophageal reflux disease without esophagitis; H57.04 Mydriasis; H54.42 Blindness, left eye, normal vision right eye; N40.0 Benign prostatic hyperplasia without lower urinary tract symptoms; D63.8 Anemia in other chronic diseases classified elsewhere; F41.9 Anxiety disorder, unspecified; Z79.01 Long term (current) use of anticoagulants; Z79.84 Long term (current) use of oral hypoglycemic drugs; Z86.73 Personal history of transient ischemic attack (TIA), and cerebral infarction without residual deficits; Z88.5 Allergy status to narcotic agent
CPT/HCPCS: 71010; 80048; 80053; 82550; 82552; 82948; 83735; 83880; 84484; 85002; 85007; 85025; 85027; 85610; 85730; 87804; 93005; 93312; 93320; 93325; 93613; 93623; 93656; 93662; 94150; 94664; 96365; 96375; 96376; C1730; C1731; C1732; C1759; C1766; C2630; J0153; J1644; J1815; J1940; J1956; J2720; J2930; J3010; J7040; J7512

== ENCOUNTER 2017-09-04 18:18 | Emergency (ER) | payer MEDICARE, OTHER ==
[~2017-09-04] VITALS: Ht 180.3 cm; Wt 78.0 kg
[~2017-09-04 18:18] MED LIST changes: +EZET10 PO; -PRED10 PO; +PRED20 PO; -ZETI10TA5 PO
[2017-09-04 18:21] VITALS: BP 210/84; PULSE 62; RESP 18; TEMP 97.7; O2SAT 98
[2017-09-04] MEDS ORDERED: OMEP40CA2 PO (19:18)
[2017-09-04] MEDS ORDERED: PRED5TAB PO (19:18)
[2017-09-04 19:47] LABS: BASOPHIL # 0.1 TH/MM3 (0-0.2); BASOPHIL % 0.8 % (0.0-2.0); EOSINOPHIL # 0.1 TH/MM3 (0-0.4); EOSINOPHIL % 0.6 % (0.0-4.0); HEMATOCRIT 43.8 % (39.0-51.0); HEMOGLOBIN 14.3 GM/DL (13.0-17.0); LYMPH % 13.7 % (9.0-44.0); LYMPHOCYTE # 1.6 TH/MM3 (1.0-4.8); MEAN CELL VOLUME 92.8 FL (80.0-100.0); MEAN CORPUSCULAR HEMOGLOBIN 30.3 PG (27.0-34.0); MEAN CORPUSCULAR HGB CONC 32.7 % (32.0-36.0); MEAN PLATELET VOLUME 8.2 FL (7.0-11.0); MONO % 6.5 % (0.0-8.0); MONOCYTE # 0.7 TH/MM3 (0-0.9); NEUT % 78.4 % (16.0-70.0); PLATELET COUNT 216 TH/MM3 (150-450); RED BLOOD COUNT 4.72 MIL/MM3 (4.50-5.90); RED CELL DISTRIBUTION WIDTH 14.4 % (11.6-17.2); WHITE BLOOD COUNT 11.4 TH/MM3 (4.0-11.0)
[2017-09-04 20:00] LABS: PROTHROMBIN TIME - PATIENT 10.2 SEC (9.8-11.6)
[2017-09-04 20:08] LABS: ALT (GPT) 46 U/L (12-78)
[2017-09-04 20:11] LABS: ALKALINE PHOSPHATASE 110 U/L (45-117); TOTAL BILIRUBIN ADULT 0.4 MG/DL (0.2-1.0); TOTAL PROTEIN 7.5 GM/DL (6.4-8.2)
[2017-09-04 20:22] LABS: ALBUMIN 3.9 GM/DL (3.4-5.0); AST (GOT) 43 U/L (15-37); BICARBONATE 24.9 MEQ/L (21.0-32.0); BLOOD UREA NITROGEN 21 MG/DL (7-18); CHLORIDE 108 MEQ/L (98-107); CREATININE 1.53 MG/DL (0.60-1.30); GLOMERULAR FILTRATION RATE 44 ML/MIN (>89); GLUCOSE,RANDOM 163 MG/DL (74-106); SODIUM (NA) 141 MEQ/L (136-145)
--- NOTE | 2017-09-04 20:38 | RADRPT ---
EXAM DATE/TIME: 09/04/2017 20:08 [place] COMPARISON: No previous studies available for comparison. INDICATIONS : Vision loss. RADIATION DOSE: 39.44 CTDIvol (mGy) MEDICAL HISTORY : Cerebrovascular disease. Cardiovascular disease Carcinoma, bladder. SURGICAL HISTORY : None. ENCOUNTER: Initial ACUITY: 1 day PAIN SCALE: 0/10 LOCATION: cranial TECHNIQUE: Multiple contiguous axial images were obtained of the head. Using automated exposure control and adj ustment of the mA and/or kV according to patient size, radiation dose was kept as low as reasonably a chievable to obtain optimal diagnostic quality images. DICOM format image data is available electro nically for review and comparison. FINDINGS: CEREBRUM: The ventricles are normal for age. No evidence of midline shift, mass lesion, hemorrhage or acute in farction. No extra-axial fluid collections are seen. POSTERIOR FOSSA: The cerebellum and brainstem are intact. The 4th ventricle is midline. The cerebellopontine angle i s unremarkable. EXTRACRANIAL: The visualized portion of the orbits is intact. SKULL: The calvaria is intact. No evidence of skull fracture. CONCLUSION: No acute disease. Eron Horton MD on September 04, 2017 at 20:35 Board Certified Radiologist. This report was verified electronically.
--- NOTE | 2017-09-04 21:42 | PD ---
HPI Chief Complaint: Eye Problems/Injury Time Seen by Provider: 19:17 Travel History International Travel<30 days: No Contact w/Intl Traveler<30days: No Traveled to known affect area: No History of Present Illness HPI Patient is an 82-year-old male who has had a few episodes of hypotensive's on standing he had visual changes everything grayed out all suspicion for a few moments however he sat down he said it improved. 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) Blood Disorders: No Cancer: Yes (bladder) Cardiac Catheterization: Yes (x 2) Cardiovascular Problems: Yes High Cholesterol: Yes Chemotherapy: Yes (07/23/16) Chest Pain: No Cerebrovascular Accident: Yes (TIA x 2, 2007) Diabetes: Yes Patient Takes Glucophage: No Diminished Hearing: No Endocrine: No Gastrointestinal Disorders: Yes GERD: Yes Glaucoma: No Genitourinary: No Headaches: Yes Hepatitis: No Hiatal Hernia: No Hypertension: No Immune Disorder: Yes Implanted Vascular Access Dvce: Yes Medical other: Yes (HX OF TIAS X2, HYPERCHOLESTER.) Musculoskeletal: Yes Neurologic: Yes Psychiatric: No Reproductive: No Respiratory: Yes (cpap) Sleep Apnea: Yes Thyroid Disease: No Ulcer: Yes Tetanus Vaccination: > 5 Years Influenza Vaccination: Yes Past Surgical History Abdominal Surgery: No AICD: No Cardiac Surgery: No Ear Surgery: No Endocrine Surgery: No Eye Surgery: Yes (bilat. cataract) Genitourinary Surgery: No Gynecologic Surgery: No Joint Replacement: No Neurologic Surgery: Yes (BILAT. TEMPORAL ARTERY SURGERY 11/20 @) Oral Surgery: No Pacemaker: No Thoracic Surgery: No Other Surgery: Yes (BACK SURGERIES) Social History Alcohol Use: Yes (rarely) Tobacco Use: No Substance Use: No Allergies-Medications (Allergen,Severity, Reaction): Coded Allergies: morphine (Unverified Allergy, Unknown, Hallucinations, 04/15/17) Reported Meds & Prescriptions Reported Meds & Active Scripts Active Eliquis (Apixaban) 5 Mg Tab 5 Mg PO BID Reported Omeprazole 40 Mg Cap 40 Mg PO DAILY Prednisone 5 Mg Tab 5 Mg PO DAILY Glimepiride 1 Mg Tab 2 Mg PO DAILY Take with breakfast or first main meal Ambien (Zolpidem Tartrate) 10 Mg Tab 10 Mg PO HS PRN Rapaflo (Silodosin) 8 Mg Cap 8 Mg PO DAILY Zetia (Ezetimibe) 10 Mg Tab 10 Mg PO DAILY Review of Systems Except as stated in HPI: all other systems reviewed are Neg Eyes: Positive: Visual changes Neurologic: Positive: Other (lightheadedness upon standing as well as a visual changes) Physical Exam Narrative GENERAL: Awake alert no distress SKIN: Warm and dry. HEAD: Atraumatic. Normocephalic. Not hypotensive EYES: Pupils equal and round. No scleral icterus. No injection or drainage. Obstructive motions are intact his vision he says is normal for his normal vision he sees better out of the right than the left at this time he is not having the symptoms are reported ENT: No nasal bleeding or discharge. Mucous membranes pink and moist. NECK: Trachea midline. No JVD. CARDIOVASCULAR: Regular rate and rhythm. RESPIRATORY: No accessory muscle use. Clear to auscultation. Breath sounds equal bilaterally. GASTROINTESTINAL: Abdomen soft, non-tender, nondistended. Hepatic and splenic margins not palpable. MUSCULOSKELETAL: Extremities without clubbing, cyanosis, or edema. No obvious deformities. NEUROLOGICAL: Awake and alert. No obvious cranial nerve deficits. Motor grossly within normal limits. Five out of 5 muscle strength in the arms and legs. Normal speech. PSYCHIATRIC: Appropriate mood and affect; insight and judgment normal. Data Data Last Documented VS Vital Signs Date Time Temp Pulse Resp B/P (MAP) Pulse Ox O2 Delivery O2 Flow Rate FiO2 09/04/17 22:52 09/04/17 22:51 62 58 09/04/17 18:21 97.7 18 98 Room Air Orders Orders Oximetry (09/04/17 19:19) Iv Access Insert/Monitor (09/04/17 19:19) Ecg Monitoring (09/04/17 19:19) Oxygen Administration (09/04/17 19:19) Complete Blood Count With Diff (09/04/17 19:19) Comprehensive Metabolic Panel (09/04/17 19:19) Prothrombin Time / Inr (Pt) (09/04/17 19:19) Electrocardiogram (09/04/17 ) Ct Brain W/O Iv Contrast(Rout) (09/04/17 ) Troponin I (09/04/17 19:49) Orthostatic Vital Signs (09/04/17 21:27) Ed Discharge Order (09/04/17 22:44) Labs Laboratory Tests Test 09/04/17 19:15 White Blood Count 11.4 TH/MM3 Red Blood Count 4.72 MIL/MM3 Hemoglobin 14.3 GM/DL Hematocrit 43.8 % Mean Corpuscular Volume 92.8 FL Mean Corpuscular Hemoglobin 30.3 PG Mean Corpuscular Hemoglobin Concent 32.7 % Red Cell Distribution Width 14.4 % Platelet Count 216 TH/MM3 Mean Platelet Volume 8.2 FL Neutrophils (%) (Auto) 78.4 % Lymphocytes (%) (Auto) 13.7 % Monocytes (%) (Auto) 6.5 % Eosinophils (%) (Auto) 0.6 % Basophils (%) (Auto) 0.8 % Neutrophils # (Auto) 9.0 TH/MM3 Lymphocytes # (Auto) 1.6 TH/MM3 Monocytes # (Auto) 0.7 TH/MM3 Eosinophils # (Auto) 0.1 TH/MM3 Basophils # (Auto) 0.1 TH/MM3 CBC Comment DIFF FINAL Differential Comment Prothrombin Time 10.2 SEC Prothromb Time International Ratio 1.0 RATIO Blood Urea Nitrogen 21 MG/DL Creatinine 1.53 MG/DL Random Glucose 163 MG/DL Total Protein 7.5 GM/DL Albumin 3.9 GM/DL Calcium Level 9.0 MG/DL Alkaline Phosphatase 110 U/L Aspartate Amino Transf (AST/SGOT) 43 U/L Alanine Aminotransferase (ALT/SGPT) 46 U/L Total Bilirubin 0.4 MG/DL Sodium Level 141 MEQ/L Potassium Level 4.5 MEQ/L Chloride Level 108 MEQ/L Carbon Dioxide Level 24.9 MEQ/L Anion Gap 8 MEQ/L Estimat Glomerular Filtration Rate 44 ML/MIN Troponin I LESS THAN 0.02 NG/ML MDM Medical Decision Making Medical Screen Exam Complete: Yes Emergency Medical Condition: Yes Interpretation(s) EKG is in normal sinus rhythm with a few PACs rate 62 bpm Differential Diagnosis Orthostatic hypotension causing visual changes temporary versus central causing of visual changes versus central artery occlusion versus central venous occlusion versus other causes of visual changes Narrative Course Patient has CT does not show any ischemic injury to the area of the optic nerve there is no signs of ischemia or stroke. His symptoms have been going off and on for over a week and any ischemic stroke causing the symptoms would have shown up on the CAT scan noncontrast labs are normal EKG is normal with a few PACs and sinus pause however his blood pressure is never hypotensive he has no symptoms while in the ER for over 4 hours troponin is negative did tooth and he is discharged after orthostatics which are normal Diagnosis Primary Impression: Orthostatic dizziness Additional Impression: Vision changes Patient Instructions: General Instructions, Your Vision (GEN) Disposition: 01 DISCHARGE HOME Condition: Good Akira Cornejo MD Sep 04, 2017 21:42
[2017-09-04 22:51] VITALS: BP_SYST 160; BP_SYST 170; BP_DIAS 71; BP_DIAS 79
--- NOTE | 2017-09-05 22:44 | EKG ---
Date Performed: 09/04/2017 Time Performed: 19:25:49 PTAGE: 82 years EKG: Sinus rhythm WITH MARKED SINUS ARRHYTHMIA BORDERLINE ECG PREVIOUS TRACING : 12/26/2016 06.48 Compared to prior tracing no significant change DOCTOR: Alec Bain Interpretating Date/Time 09/05/2017 22:44:29
== END 2017-09-04 22:50 | disposition home or self-care (01) ==
LOC: NEPE 18:18
DX: R42 Dizziness and giddiness (principal); H53.9 Unspecified visual disturbance; I49.9 Cardiac arrhythmia, unspecified; M35.3 Polymyalgia rheumatica; E78.00 Pure hypercholesterolemia, unspecified; E11.9 Type 2 diabetes mellitus without complications; K21.9 Gastro-esophageal reflux disease without esophagitis; G47.30 Sleep apnea, unspecified; Z86.73 Personal history of transient ischemic attack (TIA), and cerebral infarction without residual deficits
CPT/HCPCS: 70450; 80053; 84484; 85025; 85610; 93005